=== PATIENT | female | born 1945 | race African-American/Black ===

== ENCOUNTER 2019-06-07 14:52 | Inpatient (IN) | payer MEDICARE, MEDICAID ==
[2019-06-08 01:33] VITALS: BP 140/70
[2019-06-08] MEDS ORDERED: Magnesium Hydroxide (MOM) 30 mL UDC PO PRN (02:30)
[2019-06-08] MEDS: Escitalopram Oxalate 5 mg Tab PO SCH (09:19)
--- NOTE | 2019-06-08 17:46 | History & Physical ---
ADMIT DATE: 06/08/2019 HISTORY OF PRESENT ILLNESS: The patient is a 73-year-old female with a long history of hypertension, degenerative joint disease, and dementia, admitted to [facility] under Dr. Bowers's service. The patient is a poor historian. No pain, no shortness of breath, no nausea, no vomiting, no fever, no chills. PAST MEDICAL HISTORY: Significant for hypertension, degenerative joint disease, dementia, and psychosis. PAST SURGICAL HISTORY: No recent surgery. ALLERGIES: ASPIRIN. SOCIAL HISTORY: No smoking, no alcohol, no drug. FAMILY HISTORY: Noncontributory. MEDICATIONS: Follow admission reconciliation. REVIEW OF SYSTEMS: RENAL SYSTEM: No history of chronic renal disorder. CARDIOVASCULAR SYSTEM: No coronary artery disease. ENDOCRINE SYSTEM: No diabetes or thyroid problem. GASTROINTESTINAL SYSTEM: No upper or lower GI bleed. NEUROLOGICAL SYSTEM: No seizure disorder. MUSCULOSKELETAL SYSTEM: Degenerative joint disease. PHYSICAL EXAMINATION: GENERAL: She is awake, not coherent. VITAL SIGNS: Temperature 97.9, heart rate 78, blood pressure 166/77. HEENT: Normocephalic. Pupils reacting equal to light and accommodation. Sclerae clear. NECK: Supple. Negative for lymphadenopathy, JVD, or bruit. CHEST: Entry of air bilaterally normal. No rhonchi or wheezing. HEART: S1, S2 normal. No gallop rhythm. ABDOMEN: Soft, bowel sounds positive. EXTREMITIES: No edema. BACK: No vertebral tenderness. BREASTS, PELVIC, AND RECTAL: Done by primary care physician, no complaint. NEUROLOGIC: She is awake, alert, not fully coherent. No focal muscle deficits. ASSESSMENT: 1. Hypertension. 2. Degenerative joint disease. 3. Dementia. 4. Psychosis. PLAN: The patient admitted to the hospital under Dr. Bowers's service. Medical problem addressed during this hospitalization are dementia and psychosis. Medical problems addressed at discharge are hypertension and degenerative joint disease. The patient is medically stable for activity. Thank you, Dr. Bowers for asking me to see your patient. JOB# [id number]
[2019-06-08] MEDS: Atorvastatin Calcium 10 MG TAB PO SCH (21:33)
--- NOTE | 2019-06-09 05:48 | Psychiatric Evaluation ---
DATE OF SERVICE: 06/08/2019 ATTENDING PHYSICIAN: Dr. Samm Bowers. REASON FOR ADMISSION: Acute agitation and aggressive behavior. CHIEF COMPLAINT: "I don't care. "I am okay." HISTORY OF PRESENT ILLNESS: This is one of multiple psychiatric hospitalizations for this patient who has multiple medical problems such as hypertension, degenerative joint disease and admitted for her agitation. PAST PSYCHIATRIC HISTORY: The patient prior to the hospitalization is reported to be followed up by Dr. Bowers on an outpatient basis and has been on escitalopram 5 mg and olanzapine 5 mg twice a day. The patient with these medications has been doing okay, but lately has been getting easily agitated and getting out of control and hence the patient has been sent over here from the [facility]. PAST PSYCHIATRIC HISTORY: The patient was hospitalized on couple of occasions, last hospitalization was in 2016. The patient had been diagnosed to have Schizophrenia, chronic paranoid type. The patient is reported to be compliant with the medication. MEDICAL HISTORY: Physical examination is requested by Dr. Rose. SUBSTANCE ABUSE HISTORY: None. PHYSICAL OR SEXUAL ABUSE HISTORY: None. LEGAL PROBLEMS: None at this time. STRENGTH AND ASSETS: The patient is motivated. The patient is reported to have been getting easily agitated and hitting other residents and slamming the door, screaming and yelling at the staff members and having anger outbursts. The patient could not be contained at a lower level of care and ____ was sent over here for further stabilization. MENTAL STATUS EXAMINATION: The patient looks her stated age 73-year-old thin built, superficially cooperative. Eye contact is poor. Mood is noted to be irritable. Affect is constricted. Insight and judgment at this time are noted to be very much impaired. Impulse control is noted to be poor. Coping skills are noted to be very poor. The patient has paranoid delusions, but denies any command hallucinations. No side effects to the medications are noted. The patient is alert and oriented to time, place, person, and situation. Attention span and concentration are noted to be fair at this time. DIAGNOSTIC IMPRESSION: AXIS I: Schizophrenia, chronic paranoid type with acute exacerbation. AXIS II: None. AXIS III: As per Dr. Rose. IMMEDIATE TREATMENT PLAN: The patient is going to be observed on inpatient unit. The patient is going to be closely monitored. Once stabilized, the patient is going to be discharged to the [facility] for further followup. JOB# [id number]
[2019-06-09] MEDS: Escitalopram Oxalate 5 mg Tab PO SCH (08:43)
--- NOTE | 2019-06-09 19:28 | Internal Medicine Prog Note ---
Internal Medicine Subjective - Subjective Service Date: 06/09/19 Patient seen and examined:: with staff Patient is:: awake, verbal, arousable, in bed, talking, confused Per staff patient has:: no adverse event Internal Medicine Objective - Physical Exam Vitals and I&O: Vital Signs Temp 97.9 F 06/09/19 17:08 Pulse 74 06/09/19 17:08 Resp 19 06/09/19 17:08 BP 126/92 06/09/19 17:08 Pulse Ox 100 06/09/19 17:08 Intake & Output 06/09/19 06/09/19 06/10/19 06:59 18:59 06:59 Intake Total 240 Balance 240 Intake: Oral 240 Other: # Voids 2 # Bowel Movements 0 Active Medications: Current Medications Acetaminophen (Tylenol) 650 mg PO Q4HR PRN PRN Reason: Mild Pain (Scale 1-3) Stop: 08/07/19 02:29 Acetaminophen (Tylenol) 650 mg PO Q4H PRN PRN Reason: TEMP ABOVE 100 Stop: 08/07/19 09:15 Amlodipine Besylate (Norvasc) 5 mg PO DAILY [facility] Stop: 08/07/19 08:59 Last Admin: 06/09/19 08:42 Dose: Not Given Atorvastatin Calcium (Lipitor) 10 mg PO HS CHONG; Protocol Stop: 08/07/19 20:59 Last Admin: 06/08/19 21:33 Dose: Not Given Docusate Sodium (Colace) 100 mg PO BID [facility] Stop: 08/07/19 08:59 Last Admin: 06/09/19 16:32 Dose: Not Given Escitalopram Oxalate (Lexapro) 5 mg PO DAILY [facility]; Protocol Stop: 08/07/19 08:59 Last Admin: 06/09/19 08:43 Dose: Not Given Lorazepam (Ativan) 0.5 mg PO Q4HR PRN; Protocol PRN Reason: Anxiety Stop: 07/08/19 02:29 Magnesium Hydroxide (Milk Of Magnesia) 30 ml PO HS PRN PRN Reason: Constipation Memantine (Namenda) 5 mg PO DAILY [facility] Stop: 08/07/19 08:59 Last Admin: 06/09/19 08:43 Dose: Not Given Olanzapine (Zyprexa) 5 mg PO Q12HR CHONG; Protocol Stop: 08/07/19 08:59 Last Admin: 06/09/19 08:43 Dose: Not Given Zolpidem Tartrate (Ambien) 5 mg PO HS PRN PRN Reason: Insomnia Stop: 08/07/19 02:55 General: demented HEENT: NC/AT, PERRLA, EOMI, anicteric sclerae, throat clear Neck: Supple, No JVD, No thyromegaly, +2 carotid pulse wo bruit, No LAD Lungs: CTAB Abdomen: soft, non-tender, non-distended Extremities: clear Neurological: no change - Procedures Procedures: Procedures Procedure Code Date GROUP PSYCHOTHERAPY 82116 02/12/16 GROUP PSYCHOTHERAPY GZHZZZZ 02/12/16 OTHER GROUP THERAPY 94.44 01/18/15 RECREATIONAL THERAPY 93.81 06/04/10 VACCINATION NEC 99.55 01/21/14 Internal Medicine Assmt/Plan - Assessment Assessment: 1.HTN. 2DJD. 3.DEMENTIA. 4.PSYCHOSIS - Plan Plan: CONTINUE ON CURRENT MEDICATION AND DIET.
[2019-06-09] MEDS: Atorvastatin Calcium 10 MG TAB PO SCH (21:27)
--- NOTE | 2019-06-09 23:23 | Progress Notes ---
DATE: 06/09/2019 PSYCHIATRIC PROGRESS NOTE SUBJECTIVE: Staff was spoken to. The patient is interviewed. Mood is noted to be irritable. Affect is constricted. Insight and judgment are noted to be still impaired. Impulse control is noted to be limited. The patient is getting easily agitated and aggressive. The patient needs to be redirected. No side effects to the medications are noted. Coping skills are noted to be still poor. Sleep and appetite also noted to be very poor. ASSESSMENT: The patient is still psychotic. PLAN: To continue the patient with the supportive therapy, encouraged the patient to verbalize the concerns rather than to act out. JOB# [id number]
[2019-06-10] MEDS: Escitalopram Oxalate 5 mg Tab PO SCH (08:31)
[2019-06-10] MEDS ORDERED: Haloperidol Lactate 5 mg/mL 1mL Vial ONE (10:54)
[2019-06-10] MEDS ORDERED: Haloperidol Lactate 5 mg/mL 1mL Vial IM ONE (11:00)
--- NOTE | 2019-06-10 19:30 | Internal Medicine Prog Note ---
Internal Medicine Subjective - Subjective Service Date: 06/10/19 Patient seen and examined:: without staff (SHE IS DOING BETTER) Patient is:: awake, verbal, arousable, in bed, talking, confused Per staff patient has:: no adverse event Internal Medicine Objective - Physical Exam Vitals and I&O: Vital Signs Temp 97.6 F 06/10/19 06:55 Pulse 71 06/10/19 08:32 Resp 20 06/10/19 06:55 BP 132/65 06/10/19 08:32 Pulse Ox 100 06/10/19 06:55 Intake & Output 06/10/19 06/10/19 06/11/19 06:59 18:59 06:59 Intake Total 120 1150 Balance 120 1150 Intake: Oral 120 1150 Other: # Voids 1 # Bowel Movements 0 Active Medications: Current Medications Acetaminophen (Tylenol) 650 mg PO Q4HR PRN PRN Reason: Mild Pain (Scale 1-3) Stop: 08/07/19 02:29 Acetaminophen (Tylenol) 650 mg PO Q4H PRN PRN Reason: TEMP ABOVE 100 Stop: 08/07/19 09:15 Amlodipine Besylate (Norvasc) 5 mg PO DAILY [facility] Stop: 08/07/19 08:59 Last Admin: 06/10/19 08:32 Dose: Not Given Atorvastatin Calcium (Lipitor) 10 mg PO HS CHONG; Protocol Stop: 08/07/19 20:59 Last Admin: 06/09/19 21:27 Dose: Not Given Docusate Sodium (Colace) 100 mg PO BID [facility] Stop: 08/07/19 08:59 Last Admin: 06/10/19 17:34 Dose: Not Given Escitalopram Oxalate (Lexapro) 5 mg PO DAILY [facility]; Protocol Stop: 08/07/19 08:59 Last Admin: 06/10/19 08:31 Dose: Not Given Lorazepam (Ativan) 0.5 mg PO Q4HR PRN; Protocol PRN Reason: Anxiety Stop: 07/08/19 02:29 Magnesium Hydroxide (Milk Of Magnesia) 30 ml PO HS PRN PRN Reason: Constipation Memantine (Namenda) 5 mg PO DAILY [facility] Stop: 08/07/19 08:59 Last Admin: 06/10/19 08:31 Dose: Not Given Olanzapine (Zyprexa) 5 mg PO Q12HR CHONG; Protocol Stop: 08/07/19 08:59 Last Admin: 06/10/19 08:31 Dose: Not Given Zolpidem Tartrate (Ambien) 5 mg PO HS PRN PRN Reason: Insomnia Stop: 08/07/19 02:55 General: demented HEENT: NC/AT, PERRLA, EOMI, anicteric sclerae, throat clear Neck: Supple, No JVD, No thyromegaly, +2 carotid pulse wo bruit, No LAD Lungs: CTAB Abdomen: soft, non-tender, non-distended Extremities: clear Neurological: no change - Procedures Procedures: Procedures Procedure Code Date GROUP PSYCHOTHERAPY 45438 02/12/16 GROUP PSYCHOTHERAPY GZHZZZZ 02/12/16 OTHER GROUP THERAPY 94.44 01/18/15 RECREATIONAL THERAPY 93.81 06/04/10 VACCINATION NEC 99.55 01/21/14 Internal Medicine Assmt/Plan - Assessment Assessment: 1.HTN. 2.DJD. 3.DEMENTIA. 4.PSYCHOSIS - Plan Plan: CONTINUE ON CURRENT MEDICATION AND DIET.
[2019-06-10] MEDS: Atorvastatin Calcium 10 MG TAB PO SCH (21:20)
--- NOTE | 2019-06-11 03:06 | Progress Notes ---
DATE: 06/10/2019 PSYCHIATRIC PROGRESS NOTE SUBJECTIVE: Staff was spoken to. The patient is interviewed. Mood is noted to be anxious. The patient's coping skills are noted to be poor. The patient is reported to have taken a pair of socks and has been trying to strangle herself and the patient has to be redirected. The patient's coping skills are noted to be very poor at this time. The patient has to be given a low dose of Haldol and Benadryl to calm her down. The patient at this time is not able to contract for safety. PLAN: To continue the patient with the supportive therapy, encouraged the patient to verbalize the concerns rather than to act out. [facility]# [id number]
[2019-06-11] MEDS: Escitalopram Oxalate 5 mg Tab PO SCH (09:18)
--- NOTE | 2019-06-11 18:58 | Internal Medicine Prog Note ---
Internal Medicine Subjective - Subjective Service Date: 06/11/19 Patient seen and examined:: without staff (SHE IS CONFUSED) Patient is:: awake, verbal, arousable, in bed, talking, confused Per staff patient has:: no adverse event Internal Medicine Objective - Physical Exam Vitals and I&O: Vital Signs Temp 97.5 F 06/11/19 16:15 Pulse 64 06/11/19 16:15 Resp 18 06/11/19 16:15 BP 115/58 06/11/19 16:15 Pulse Ox 99 06/11/19 16:15 Intake & Output 06/10/19 06/11/19 06/11/19 18:59 06:59 18:59 Intake Total 1150 120 Balance 1150 120 Intake: Oral 1150 120 Other: # Voids 3 Active Medications: Current Medications Acetaminophen (Tylenol) 650 mg PO Q4HR PRN PRN Reason: Mild Pain (Scale 1-3) Stop: 08/07/19 02:29 Acetaminophen (Tylenol) 650 mg PO Q4H PRN PRN Reason: TEMP ABOVE 100 Stop: 08/07/19 09:15 Amlodipine Besylate (Norvasc) 5 mg PO DAILY [facility] Stop: 08/07/19 08:59 Last Admin: 06/11/19 09:18 Dose: 5 mg Atorvastatin Calcium (Lipitor) 10 mg PO HS [facility]; Protocol Stop: 08/07/19 20:59 Last Admin: 06/10/19 21:20 Dose: Not Given Docusate Sodium (Colace) 100 mg PO BID [facility] Stop: 08/07/19 08:59 Last Admin: 06/11/19 16:58 Dose: 100 mg Escitalopram Oxalate (Lexapro) 5 mg PO DAILY [facility]; Protocol Stop: 08/07/19 08:59 Last Admin: 06/11/19 09:18 Dose: 5 mg Lorazepam (Ativan) 0.5 mg PO Q4HR PRN; Protocol PRN Reason: Anxiety Stop: 07/08/19 02:29 Magnesium Hydroxide (Milk Of Magnesia) 30 ml PO HS PRN PRN Reason: Constipation Memantine (Namenda) 5 mg PO DAILY [facility] Stop: 08/07/19 08:59 Last Admin: 06/11/19 09:19 Dose: 5 mg Olanzapine (Zyprexa) 5 mg PO Q12HR [facility]; Protocol Stop: 08/07/19 08:59 Last Admin: 06/11/19 09:19 Dose: 5 mg Zolpidem Tartrate (Ambien) 5 mg PO HS PRN PRN Reason: Insomnia Stop: 08/07/19 02:55 General: demented HEENT: NC/AT, PERRLA, EOMI, anicteric sclerae, throat clear Neck: Supple, No JVD, No thyromegaly, +2 carotid pulse wo bruit, No LAD Lungs: CTAB Abdomen: soft, non-tender, non-distended Extremities: clear Neurological: no change - Procedures Procedures: Procedures Procedure Code Date GROUP PSYCHOTHERAPY 46087 02/12/16 GROUP PSYCHOTHERAPY GZHZZZZ 02/12/16 OTHER GROUP THERAPY 94.44 01/18/15 RECREATIONAL THERAPY 93.81 06/04/10 VACCINATION NEC 99.55 01/21/14 Internal Medicine Assmt/Plan - Assessment Assessment: 1.HTN. 2.DJD. 3.DEMENTIA. 4.PSYCHOSIS - Plan Plan: CONTINUE ON CURRENT MEDICATION AND DIET. Nutritional Asmnt/Malnutr-PDOC - Dietary Evaluation Malnutrition Findings (Please click <Entered> for more info): Nutritional Asmnt/Malnutrition Start: 06/11/19 12: 54 Text: Status: Complete Freq: Protocol: Document 06/11/19 12:54 GASPER (Rec: 06/11/19 12:57 [email or web address]) Nutritional Asmnt/Malnutrition Patient General Information Nutritional Screening Moderate Risk Diagnosis Psychosis Pertinent Medical Hx/Surgical Hx HTN, DJD, Dementia Subjective Information Pt is a 73-year-old female admitted on 06/08 d/t acute agitation and aggressive behavior. Pt is eating 100% of meals since admit date Per Meal/Nutrition Activity Record . Dietary is currently providing an estimated 2100 kcals and 95 gm Pro to meet 100+% kcal and 100+% Pro needs . In morning flash meeting, nurse stated pt takes meds with Apple Juice. Visited pt today at lunchtime, opt was eating. I introduced myself to the pt and she stated she was not Samantha, she seemed confused. [employer] stated the pt prefers eating standing up and eats slow, but well. Anthropometrics HT: 56 WT: 169 LB (34.92 kg) ABW: 139 LB (63.52 kg) BMI: 27.28 (Overweight) GI/ Skin Integrity GI: WNL, Soft, Flat, Non- tender BM: Not Noted I/O: 1270/Not Noted Skin: WNL, Intact [place]: 17 Diet Order: Cardiac, NCS, 2g Na Estimated Energy Needs: ( Geriatric, ABW) 5823-6649 kcals (25-30 kcals/ kg) 64-76g Pro (1.0-1.2 g/kg) 5794-9573 ml (25-30 ml/kg) Current Diet Order/ Nutrition Support Cardiac, NCS, 2g Na Pertinent Medications Lipitor, Colace, MOM (PRN) Pertinent Labs No Labs to Report Nutritional Hx/Data Height 1.68 m Height (Calculated Centimeters) 167.6 Current Weight (lbs) 76.657 kg Weight (Calculated Kilograms) 76.7 Weight (Calculated Grams) 96421.1 [place] Body Weight 130 LB (59 kg) % [place] Body Weight 130 Body Mass Index (BMI) 27.2 Weight Status Overweight GI Symptoms GI Symptoms None Last BM Not Noted Skin Integrity/Comment: Skin: WNL, Intact [place]: 17 Estimated Nutritional Goals BEE in Kcals: Adj wt of IBW Calories/Kcals/Kg 25-30 Kcals Calculated 5901-2749 Protein: Adj wt of IBW Protein g/k.0-1.2 Protein Calculated 64-76 Fluid: ml 6168-9772 ml (25-30 ml/kg) Nutritional Problem 1. Problem Problem No nutrition diagnosis at this time. Etiology N/A Signs/Symptoms: N/A Intervention/Recommendation Comments Continue with Cardiac, NCS, 2g Na diet as ordered. Expected Outcomes/Goals Expected Outcomes/Goals 1. PO intake to continue to meet >75% of nutritional needs . 2. Monitor PO intake, wt, nutrition related labs, and skin integrity. 3. F/U as low risk in 7-10 days, 06/18-06/21
[2019-06-11] MEDS: Atorvastatin Calcium 10 MG TAB PO SCH (20:51)
--- NOTE | 2019-06-11 22:42 | Progress Notes ---
DATE: 06/11/2019 Staff was spoken to. The patient is interviewed. Mood is noted to be irritable. Affect is constricted. Insight and judgment at this time are noted to be still impaired. Impulse control is noted to be limited. Coping skills are noted to be limited. The patient has been having difficult time to cope with the stress. No side effects to the medications are noted. The patient has been getting aggressive at this time and the patient has been trying to make a with the socks and the patient has been closely monitored for this aggressive behavior. The patient is going to be closely monitored and if he continues to be this aggressive. The patient is going to be placed on the Depakene or Depakote and the patient is going to be continued with Zyprexa and followed up. JOB# [id number]
--- NOTE | 2019-06-12 21:12 | Internal Medicine Prog Note ---
Internal Medicine Subjective - Subjective Service Date: 06/12/19 Patient seen and examined:: without staff (SHE IS DOING WELL) Patient is:: awake, verbal, arousable, in bed, talking, confused Per staff patient has:: no adverse event Internal Medicine Objective - Physical Exam Vitals and I&O: Vital Signs Temp 98.2 F 06/12/19 20:11 Pulse 100 06/12/19 20:11 Resp 20 06/12/19 20:11 BP 139/76 06/12/19 20:11 Pulse Ox 97 06/12/19 20:11 Intake & Output 06/12/19 06/12/19 06/13/19 06:59 18:59 06:59 Intake Total 300 1200 240 Balance 300 1200 240 Intake: Oral 300 1200 240 Other: # Voids 3 4 1 # Bowel Movements 0 0 Active Medications: Current Medications Acetaminophen (Tylenol) 650 mg PO Q4HR PRN PRN Reason: Mild Pain (Scale 1-3) Stop: 08/07/19 02:29 Acetaminophen (Tylenol) 650 mg PO Q4H PRN PRN Reason: TEMP ABOVE 100 Stop: 08/07/19 09:15 Amlodipine Besylate (Norvasc) 5 mg PO DAILY [facility] Stop: 08/07/19 08:59 Last Admin: 06/12/19 09:38 Dose: Not Given Atorvastatin Calcium (Lipitor) 10 mg PO HS [facility]ONG; Protocol Stop: 08/07/19 20:59 Last Admin: 06/11/19 20:51 Dose: 10 mg Docusate Sodium (Colace) 100 mg PO BID [facility] Stop: 08/07/19 08:59 Last Admin: 06/12/19 16:15 Dose: Not Given Lorazepam (Ativan) 0.5 mg PO Q4HR PRN; Protocol PRN Reason: Anxiety Stop: 07/08/19 02:29 Magnesium Hydroxide (Milk Of Magnesia) 30 ml PO HS PRN PRN Reason: Constipation Memantine (Namenda) 5 mg PO DAILY [facility] Stop: 08/07/19 08:59 Last Admin: 06/12/19 09:37 Dose: Not Given Olanzapine (Zyprexa) 5 mg PO Q12HR [facility]; Protocol Stop: 08/07/19 08:59 Last Admin: 06/12/19 09:37 Dose: 5 mg Zolpidem Tartrate (Ambien) 5 mg PO HS PRN PRN Reason: Insomnia Stop: 08/07/19 02:55 General: demented HEENT: NC/AT, PERRLA, EOMI, anicteric sclerae, throat clear Neck: Supple, No JVD, No thyromegaly, +2 carotid pulse wo bruit, No LAD Lungs: CTAB Abdomen: soft, non-tender, non-distended Extremities: clear Neurological: no change - Procedures Procedures: Procedures Procedure Code Date GROUP PSYCHOTHERAPY 76488 02/12/16 GROUP PSYCHOTHERAPY GZHZZZZ 02/12/16 OTHER GROUP THERAPY 94.44 01/18/15 RECREATIONAL THERAPY 93.81 06/04/10 VACCINATION NEC 99.55 01/21/14 Internal Medicine Assmt/Plan - Assessment Assessment: 1.HTN. 2.DJD. 3.DEMENTIA. 4.PSYCHOSIS - Plan Plan: CONTINUE ON CURRENT MEDICATION AND DIET. Nutritional Asmnt/Malnutr-PDOC - Dietary Evaluation Malnutrition Findings (Please click <Entered> for more info): Nutritional Asmnt/Malnutrition Start: 06/11/19 12: 54 Text: Status: Complete Freq: Protocol: Document 06/11/19 12:54 GASPER (Rec: 06/11/19 12:57 [email or web address]) Nutritional Asmnt/Malnutrition Patient General Information Nutritional Screening Moderate Risk Diagnosis Psychosis Pertinent Medical Hx/Surgical Hx HTN, DJD, Dementia Subjective Information Pt is a 73-year-old female admitted on 06/08 d/t acute agitation and aggressive behavior. Pt is eating 100% of meals since admit date Per Meal/Nutrition Activity Record . Dietary is currently providing an estimated 2100 kcals and 95 gm Pro to meet 100+% kcal and 100+% Pro needs . In morning flash meeting, nurse stated pt takes meds with Apple Juice. Visited pt today at lunchtime, opt was eating. I introduced myself to the pt and she stated she was not Samantha, she seemed confused. [employer] stated the pt prefers eating standing up and eats slow, but well. Anthropometrics HT: 56 WT: 169 LB (34.92 kg) ABW: 139 LB (63.52 kg) BMI: 27.28 (Overweight) GI/ Skin Integrity GI: WNL, Soft, Flat, Non- tender BM: Not Noted I/O: 1270/Not Noted Skin: WNL, Intact [place]: 17 Diet Order: Cardiac, NCS, 2g Na Estimated Energy Needs: ( Geriatric, ABW) 9064-2366 kcals (25-30 kcals/ kg) 64-76g Pro (1.0-1.2 g/kg) 2316-4069 ml (25-30 ml/kg) Current Diet Order/ Nutrition Support Cardiac, NCS, 2g Na Pertinent Medications Lipitor, Colace, MOM (PRN) Pertinent Labs No Labs to Report Nutritional Hx/Data Height 1.68 m Height (Calculated Centimeters) 167.6 Current Weight (lbs) 76.657 kg Weight (Calculated Kilograms) 76.7 Weight (Calculated Grams) 52086.1 [place] Body Weight 130 LB (59 kg) % [place] Body Weight 130 Body Mass Index (BMI) 27.2 Weight Status Overweight GI Symptoms GI Symptoms None Last BM Not Noted Skin Integrity/Comment: Skin: WNL, Intact [place]: 17 Estimated Nutritional Goals BEE in Kcals: Adj wt of IBW Calories/Kcals/Kg 25-30 Kcals Calculated 7044-1416 Protein: Adj wt of IBW Protein g/k.0-1.2 Protein Calculated 64-76 Fluid: ml 5776-8482 ml (25-30 ml/kg) Nutritional Problem 1. Problem Problem No nutrition diagnosis at this time. Etiology N/A Signs/Symptoms: N/A Intervention/Recommendation Comments Continue with Cardiac, NCS, 2g Na diet as ordered. Expected Outcomes/Goals Expected Outcomes/Goals 1. PO intake to continue to meet >75% of nutritional needs . 2. Monitor PO intake, wt, nutrition related labs, and skin integrity. 3. F/U as low risk in 7-10 days, 06/18-06/21
[2019-06-12] MEDS: Atorvastatin Calcium 10 MG TAB PO SCH (21:44)
--- NOTE | 2019-06-12 22:06 | Progress Notes ---
DATE: 06/12/2019 PSYCHIATRIC PROGRESS NOTE SUBJECTIVE: Staff was spoken to. The patient is interviewed. Mood is noted to be irritable. Affect is constricted. Insight and judgment at this time are noted to be still impaired. Impulse control is noted to be limited. Coping skills are noted to be limited. The patient has no insight into her illness. The patient is still trying to test the limits and has been trying to hurt herself when she does not do that one she is trying to hurt the staff members. The patient is being closely monitored for medication cheeking. ASSESSMENT: The patient is still impulsive. PLAN: To continue the patient with the supportive therapy. I encouraged the patient to verbalize the concerns rather than to act out. JOB# [id number]
--- NOTE | 2019-06-13 20:47 | Internal Medicine Prog Note ---
Internal Medicine Subjective - Subjective Service Date: 06/13/19 Patient seen and examined:: without staff (SHE IS DOING WELL) Patient is:: awake, verbal, arousable, in bed, talking, confused Per staff patient has:: no adverse event Internal Medicine Objective - Physical Exam Vitals and I&O: Vital Signs Temp 97.6 F 06/13/19 14:00 Pulse 82 06/13/19 14:00 Resp 20 06/13/19 14:00 BP 120/56 06/13/19 14:00 Pulse Ox 97 06/13/19 14:00 Intake & Output 06/13/19 06/13/19 06/14/19 06:59 18:59 06:59 Intake Total 240 900 Balance 240 900 Intake: Oral 240 900 Other: # Voids 3 3 # Bowel Movements 0 1 Active Medications: Current Medications Acetaminophen (Tylenol) 650 mg PO Q4HR PRN PRN Reason: Mild Pain (Scale 1-3) Stop: 08/07/19 02:29 Acetaminophen (Tylenol) 650 mg PO Q4H PRN PRN Reason: TEMP ABOVE 100 Stop: 08/07/19 09:15 Amlodipine Besylate (Norvasc) 5 mg PO DAILY [facility] Stop: 08/07/19 08:59 Last Admin: 06/13/19 08:53 Dose: 5 mg Atorvastatin Calcium (Lipitor) 10 mg PO HS [facility]; Protocol Stop: 08/07/19 20:59 Last Admin: 06/12/19 21:44 Dose: 10 mg Divalproex Sodium (Depakote Dr) 250 mg PO BID [facility]; Protocol Stop: 08/13/19 08:59 Docusate Sodium (Colace) 100 mg PO BID [facility] Stop: 08/07/19 08:59 Last Admin: 06/13/19 17:38 Dose: 100 mg Lorazepam (Ativan) 0.5 mg PO Q4HR PRN; Protocol PRN Reason: Anxiety Stop: 07/08/19 02:29 Magnesium Hydroxide (Milk Of Magnesia) 30 ml PO HS PRN PRN Reason: Constipation Memantine (Namenda) 5 mg PO DAILY [facility] Stop: 08/07/19 08:59 Last Admin: 06/13/19 08:53 Dose: 5 mg Olanzapine (Zyprexa) 5 mg PO Q12HR [facility]; Protocol Stop: 08/07/19 08:59 Last Admin: 06/13/19 08:52 Dose: 5 mg Zolpidem Tartrate (Ambien) 5 mg PO HS PRN PRN Reason: Insomnia Stop: 08/07/19 02:55 General: demented HEENT: NC/AT, PERRLA, EOMI, anicteric sclerae, throat clear Neck: Supple, No JVD, No thyromegaly, +2 carotid pulse wo bruit, No LAD Lungs: CTAB Abdomen: soft, non-tender, non-distended Extremities: clear Neurological: no change - Procedures Procedures: Procedures Procedure Code Date GROUP PSYCHOTHERAPY 39389 02/12/16 GROUP PSYCHOTHERAPY GZHZZZZ 02/12/16 OTHER GROUP THERAPY 94.44 01/18/15 RECREATIONAL THERAPY 93.81 06/04/10 VACCINATION NEC 99.55 01/21/14 Internal Medicine Assmt/Plan - Assessment Assessment: 1.HTN. 2.DJD. 3.DEMENTIA. 4.PSYCHOSIS - Plan Plan: CONTINUE ON CURRENT MEDICATION AND DIET. Nutritional Asmnt/Malnutr-PDOC - Dietary Evaluation Malnutrition Findings (Please click <Entered> for more info): Nutritional Asmnt/Malnutrition Start: 06/11/19 12: 54 Text: Status: Complete Freq: Protocol: Document 06/11/19 12:54 GASPER (Rec: 06/11/19 12:57 [email or web address]) Nutritional Asmnt/Malnutrition Patient General Information Nutritional Screening Moderate Risk Diagnosis Psychosis Pertinent Medical Hx/Surgical Hx HTN, DJD, Dementia Subjective Information Pt is a 73-year-old female admitted on 06/08 d/t acute agitation and aggressive behavior. Pt is eating 100% of meals since admit date Per Meal/Nutrition Activity Record . Dietary is currently providing an estimated 2100 kcals and 95 gm Pro to meet 100+% kcal and 100+% Pro needs . In morning flash meeting, nurse stated pt takes meds with Apple Juice. Visited pt today at lunchtime, opt was eating. I introduced myself to the pt and she stated she was not Samantha, she seemed confused. ENTRY LEVEL ACCOUNTANT stated the pt prefers eating standing up and eats slow, but well. Anthropometrics HT: 56 WT: 169 LB (34.92 kg) ABW: 139 LB (63.52 kg) BMI: 27.28 (Overweight) GI/ Skin Integrity GI: WNL, Soft, Flat, Non- tender BM: Not Noted I/O: 1270/Not Noted Skin: WNL, Intact [place]: 17 Diet Order: Cardiac, NCS, 2g Na Estimated Energy Needs: ( Geriatric, ABW) 5335-0560 kcals (25-30 kcals/ kg) 64-76g Pro (1.0-1.2 g/kg) 5039-6863 ml (25-30 ml/kg) Current Diet Order/ Nutrition Support Cardiac, NCS, 2g Na Pertinent Medications Lipitor, Colace, MOM (PRN) Pertinent Labs No Labs to Report Nutritional Hx/Data Height 1.68 m Height (Calculated Centimeters) 167.6 Current Weight (lbs) 76.657 kg Weight (Calculated Kilograms) 76.7 Weight (Calculated Grams) 48767.1 [place] Body Weight 130 LB (59 kg) % [place] Body Weight 130 Body Mass Index (BMI) 27.2 Weight Status Overweight GI Symptoms GI Symptoms None Last BM Not Noted Skin Integrity/Comment: Skin: WNL, Intact [place]: 17 Estimated Nutritional Goals BEE in Kcals: Adj wt of IBW Calories/Kcals/Kg 25-30 Kcals Calculated 5635-1837 Protein: Adj wt of IBW Protein g/k.0-1.2 Protein Calculated 64-76 Fluid: ml 9728-6797 ml (25-30 ml/kg) Nutritional Problem 1. Problem Problem No nutrition diagnosis at this time. Etiology N/A Signs/Symptoms: N/A Intervention/Recommendation Comments Continue with Cardiac, NCS, 2g Na diet as ordered. Expected Outcomes/Goals Expected Outcomes/Goals 1. PO intake to continue to meet >75% of nutritional needs . 2. Monitor PO intake, wt, nutrition related labs, and skin integrity. 3. F/U as low risk in 7-10 days, 06/18-06/21
[2019-06-13] MEDS: Atorvastatin Calcium 10 MG TAB PO SCH (20:52)
--- NOTE | 2019-06-13 21:55 | Progress Notes ---
DATE: 06/13/2019 SUBJECTIVE: Staff was spoken to. The patient is interviewed. Mood is noted to be irritable. Affect is constricted. The patient is still impulsive. The patient has been testing the limits. The patient has no insight into her illness. The patient is stating that she does not need to be on the medications and she is medicated against her will. The patient has been testing the limits at this time. The patient has paranoid delusions. The patient also has been aggressive towards the staff members. ASSESSMENT: The patient is still grossly psychotic and impulsive. PLAN: To continue the patient with the supportive therapy, encouraged the patient to verbalize the concerns rather than to act out. JOB# [id number]
--- NOTE | 2019-06-14 19:13 | Internal Medicine Prog Note ---
Internal Medicine Subjective - Subjective Service Date: 06/14/19 Patient seen and examined:: without staff (SHE FEELS WELL) Patient is:: awake, verbal, arousable, in bed, talking, confused Per staff patient has:: no adverse event Internal Medicine Objective - Physical Exam Vitals and I&O: Vital Signs Temp 97.4 F 06/14/19 14:00 Pulse 94 06/14/19 14:00 Resp 20 06/14/19 14:00 BP 138/72 06/14/19 14:00 Pulse Ox 96 06/14/19 14:00 Intake & Output 06/14/19 06/14/19 06/15/19 06:59 18:59 06:59 Intake Total 120 1500 Balance 120 1500 Intake: Oral 120 1500 Other: # Voids 3 3 # Bowel Movements 0 Active Medications: Current Medications Acetaminophen (Tylenol) 650 mg PO Q4HR PRN PRN Reason: Mild Pain (Scale 1-3) Stop: 08/07/19 02:29 Acetaminophen (Tylenol) 650 mg PO Q4H PRN PRN Reason: TEMP ABOVE 100 Stop: 08/07/19 09:15 Amlodipine Besylate (Norvasc) 5 mg PO DAILY [facility] Stop: 08/07/19 08:59 Last Admin: 06/14/19 08:31 Dose: 5 mg Atorvastatin Calcium (Lipitor) 10 mg PO HS [facility]; Protocol Stop: 08/07/19 20:59 Last Admin: 06/13/19 20:52 Dose: 10 mg Divalproex Sodium (Depakote Dr) 250 mg PO BID [facility]; Protocol Stop: 08/13/19 08:59 Last Admin: 06/14/19 17:50 Dose: Not Given Docusate Sodium (Colace) 100 mg PO BID [facility] Stop: 08/07/19 08:59 Last Admin: 06/14/19 17:50 Dose: Not Given Lorazepam (Ativan) 0.5 mg PO Q4HR PRN; Protocol PRN Reason: Anxiety Stop: 07/08/19 02:29 Magnesium Hydroxide (Milk Of Magnesia) 30 ml PO HS PRN PRN Reason: Constipation Memantine (Namenda) 5 mg PO DAILY [facility] Stop: 08/07/19 08:59 Last Admin: 06/14/19 08:31 Dose: 5 mg Olanzapine (Zyprexa) 5 mg PO Q12HR [facility]; Protocol Stop: 08/07/19 08:59 Last Admin: 06/14/19 08:31 Dose: 5 mg Zolpidem Tartrate (Ambien) 5 mg PO HS PRN PRN Reason: Insomnia Stop: 08/07/19 02:55 General: demented HEENT: NC/AT, PERRLA, EOMI, anicteric sclerae, throat clear Neck: Supple, No JVD, No thyromegaly, +2 carotid pulse wo bruit, No LAD Lungs: CTAB Abdomen: soft, non-tender, non-distended Extremities: clear Neurological: no change - Procedures Procedures: Procedures Procedure Code Date GROUP PSYCHOTHERAPY 48092 02/12/16 GROUP PSYCHOTHERAPY GZHZZZZ 02/12/16 OTHER GROUP THERAPY 94.44 01/18/15 RECREATIONAL THERAPY 93.81 06/04/10 VACCINATION NEC 99.55 01/21/14 Internal Medicine Assmt/Plan - Assessment Assessment: 1.HTN. 2.DJD. 3.DEMENTIA. 4.PSYCHOSIS - Plan Plan: CONTINUE ON CURRENT MEDICATION AND DIET. Nutritional Asmnt/Malnutr-PDOC - Dietary Evaluation Malnutrition Findings (Please click <Entered> for more info): Nutritional Asmnt/Malnutrition Start: 06/11/19 12: 54 Text: Status: Complete Freq: Protocol: Document 06/11/19 12:54 GASPER (Rec: 06/11/19 12:57 [email or web address]) Nutritional Asmnt/Malnutrition Patient General Information Nutritional Screening Moderate Risk Diagnosis Psychosis Pertinent Medical Hx/Surgical Hx HTN, DJD, Dementia Subjective Information Pt is a 73-year-old female admitted on 06/08 d/t acute agitation and aggressive behavior. Pt is eating 100% of meals since admit date Per Meal/Nutrition Activity Record . Dietary is currently providing an estimated 2100 kcals and 95 gm Pro to meet 100+% kcal and 100+% Pro needs . In morning flash meeting, nurse stated pt takes meds with Apple Juice. Visited pt today at lunchtime, opt was eating. I introduced myself to the pt and she stated she was not Samantha, she seemed confused. [employer] OFFICER stated the pt prefers eating standing up and eats slow, but well. Anthropometrics HT: 56 WT: 169 LB (34.92 kg) ABW: 139 LB (63.52 kg) BMI: 27.28 (Overweight) GI/ Skin Integrity GI: WNL, Soft, Flat, Non- tender BM: Not Noted I/O: 1270/Not Noted Skin: WNL, Intact [place]: 17 Diet Order: Cardiac, NCS, 2g Na Estimated Energy Needs: ( Geriatric, ABW) 5831-2595 kcals (25-30 kcals/ kg) 64-76g Pro (1.0-1.2 g/kg) 6819-4504 ml (25-30 ml/kg) Current Diet Order/ Nutrition Support Cardiac, NCS, 2g Na Pertinent Medications Lipitor, Colace, MOM (PRN) Pertinent Labs No Labs to Report Nutritional Hx/Data Height 1.68 m Height (Calculated Centimeters) 167.6 Current Weight (lbs) 76.657 kg Weight (Calculated Kilograms) 76.7 Weight (Calculated Grams) 77261.1 [place] Body Weight 130 LB (59 kg) % [place] Body Weight 130 Body Mass Index (BMI) 27.2 Weight Status Overweight GI Symptoms GI Symptoms None Last BM Not Noted Skin Integrity/Comment: Skin: WNL, Intact [place]: 17 Estimated Nutritional Goals BEE in Kcals: Adj wt of IBW Calories/Kcals/Kg 25-30 Kcals Calculated 8912-1134 Protein: Adj wt of IBW Protein g/k.0-1.2 Protein Calculated 64-76 Fluid: ml 0138-4577 ml (25-30 ml/kg) Nutritional Problem 1. Problem Problem No nutrition diagnosis at this time. Etiology N/A Signs/Symptoms: N/A Intervention/Recommendation Comments Continue with Cardiac, NCS, 2g Na diet as ordered. Expected Outcomes/Goals Expected Outcomes/Goals 1. PO intake to continue to meet >75% of nutritional needs . 2. Monitor PO intake, wt, nutrition related labs, and skin integrity. 3. F/U as low risk in 7-10 days, 06/18-06/21
[2019-06-14] MEDS: Atorvastatin Calcium 10 MG TAB PO SCH (21:04)
--- NOTE | 2019-06-15 03:51 | Progress Notes ---
DATE: 06/14/2019 SUBJECTIVE: Staff was spoken to. The patient is interviewed. Mood is noted to be irritable. Affect is constricted. Insight and judgment at this time are noted to be still impaired. Impulse control is noted to be limited. Coping skills are noted to be limited. The patient is actively responding to internal stimuli. The patient has been spending hours to get into the bathroom and did not getting out of the bathroom and is actively talking to self, when confronted the patient is denying any command hallucinations. ASSESSMENT: The patient is still grossly psychotic. PLAN: To continue the patient with the supportive therapy and followup. JOB# [id number]
--- NOTE | 2019-06-15 15:41 | Internal Medicine Prog Note ---
Internal Medicine Subjective - Subjective Service Date: 06/15/19 Patient seen and examined:: without staff (SHE IS DOING WELL) Patient is:: awake, verbal, arousable, in bed, talking, confused Per staff patient has:: no adverse event Internal Medicine Objective - Physical Exam Vitals and I&O: Vital Signs Temp 97.5 F 06/15/19 14:00 Pulse 75 06/15/19 14:00 Resp 20 06/15/19 14:00 BP 134/69 06/15/19 14:00 Pulse Ox 98 06/15/19 14:00 Intake & Output 06/14/19 06/15/19 06/15/19 18:59 06:59 18:59 Intake Total 1500 120 Balance 1500 120 Intake: Oral 1500 120 Other: # Voids 3 3 # Bowel Movements 0 Active Medications: Current Medications Acetaminophen (Tylenol) 650 mg PO Q4HR PRN PRN Reason: Mild Pain (Scale 1-3) Stop: 08/07/19 02:29 Acetaminophen (Tylenol) 650 mg PO Q4H PRN PRN Reason: TEMP ABOVE 100 Stop: 08/07/19 09:15 Amlodipine Besylate (Norvasc) 5 mg PO DAILY [facility] Stop: 08/07/19 08:59 Last Admin: 06/15/19 09:00 Dose: 5 mg Atorvastatin Calcium (Lipitor) 10 mg PO HS [facility]; Protocol Stop: 08/07/19 20:59 Last Admin: 06/14/19 21:04 Dose: 10 mg Divalproex Sodium (Depakote Dr) 250 mg PO BID [facility]; Protocol Stop: 08/13/19 08:59 Last Admin: 06/15/19 09:00 Dose: 250 mg Docusate Sodium (Colace) 100 mg PO BID [facility] Stop: 08/07/19 08:59 Last Admin: 06/15/19 09:01 Dose: Not Given Lorazepam (Ativan) 0.5 mg PO Q4HR PRN; Protocol PRN Reason: Anxiety Stop: 07/08/19 02:29 Magnesium Hydroxide (Milk Of Magnesia) 30 ml PO HS PRN PRN Reason: Constipation Memantine (Namenda) 5 mg PO DAILY [facility] Stop: 08/07/19 08:59 Last Admin: 06/15/19 09:00 Dose: 5 mg Olanzapine (Zyprexa) 5 mg PO Q12HR [facility]; Protocol Stop: 08/07/19 08:59 Last Admin: 06/15/19 09:00 Dose: 5 mg Zolpidem Tartrate (Ambien) 5 mg PO HS PRN PRN Reason: Insomnia Stop: 08/07/19 02:55 Last Admin: 06/14/19 21:04 Dose: 5 mg General: demented HEENT: NC/AT, PERRLA, EOMI, anicteric sclerae, throat clear Neck: Supple, No JVD, No thyromegaly, +2 carotid pulse wo bruit, No LAD Lungs: CTAB Abdomen: soft, non-tender, non-distended Extremities: clear Neurological: no change - Procedures Procedures: Procedures Procedure Code Date GROUP PSYCHOTHERAPY 73012 02/12/16 GROUP PSYCHOTHERAPY GZHZZZZ 02/12/16 OTHER GROUP THERAPY 94.44 01/18/15 RECREATIONAL THERAPY 93.81 06/04/10 VACCINATION NEC 99.55 01/21/14 Internal Medicine Assmt/Plan - Assessment Assessment: 1.HTN. 2.DJD. 3.DEMENTIA. 4.PSYCHOSIS - Plan Plan: CONTINUE ON CURRENT MEDICATION AND DIET. Nutritional Asmnt/Malnutr-PDOC - Dietary Evaluation Malnutrition Findings (Please click <Entered> for more info): Nutritional Asmnt/Malnutrition Start: 06/11/19 12: 54 Text: Status: Complete Freq: Protocol: Document 06/11/19 12:54 GASPER (Rec: 06/11/19 12:57 GASPER [email or web address]) Nutritional Asmnt/Malnutrition Patient General Information Nutritional Screening Moderate Risk Diagnosis Psychosis Pertinent Medical Hx/Surgical Hx HTN, DJD, Dementia Subjective Information Pt is a 73-year-old female admitted on 06/08 d/t acute agitation and aggressive behavior. Pt is eating 100% of meals since admit date Per Meal/Nutrition Activity Record . Dietary is currently providing an estimated 2100 kcals and 95 gm Pro to meet 100+% kcal and 100+% Pro needs . In morning flash meeting, nurse stated pt takes meds with Apple Juice. Visited pt today at lunchtime, opt was eating. I introduced myself to the pt and she stated she was not Samantha, she seemed confused. SOURCING CONSULTANT stated the pt prefers eating standing up and eats slow, but well. Anthropometrics HT: 56 WT: 169 LB (34.92 kg) ABW: 139 LB (63.52 kg) BMI: 27.28 (Overweight) GI/ Skin Integrity GI: WNL, Soft, Flat, Non- tender BM: Not Noted I/O: 1270/Not Noted Skin: WNL, Intact [place]: 17 Diet Order: Cardiac, NCS, 2g Na Estimated Energy Needs: ( Geriatric, ABW) 1085-1914 kcals (25-30 kcals/ kg) 64-76g Pro (1.0-1.2 g/kg) 2056-0627 ml (25-30 ml/kg) Current Diet Order/ Nutrition Support Cardiac, NCS, 2g Na Pertinent Medications Lipitor, Colace, MOM (PRN) Pertinent Labs No Labs to Report Nutritional Hx/Data Height 1.68 m Height (Calculated Centimeters) 167.6 Current Weight (lbs) 76.657 kg Weight (Calculated Kilograms) 76.7 Weight (Calculated Grams) 84767.1 [place] Body Weight 130 LB (59 kg) % [place] Body Weight 130 Body Mass Index (BMI) 27.2 Weight Status Overweight GI Symptoms GI Symptoms None Last BM Not Noted Skin Integrity/Comment: Skin: WNL, Intact [place]: 17 Estimated Nutritional Goals BEE in Kcals: Adj wt of IBW Calories/Kcals/Kg 25-30 Kcals Calculated 8446-8625 Protein: Adj wt of IBW Protein g/k.0-1.2 Protein Calculated 64-76 Fluid: ml 2964-3288 ml (25-30 ml/kg) Nutritional Problem 1. Problem Problem No nutrition diagnosis at this time. Etiology N/A Signs/Symptoms: N/A Intervention/Recommendation Comments Continue with Cardiac, NCS, 2g Na diet as ordered. Expected Outcomes/Goals Expected Outcomes/Goals 1. PO intake to continue to meet >75% of nutritional needs . 2. Monitor PO intake, wt, nutrition related labs, and skin integrity. 3. F/U as low risk in 7-10 days, 06/18-06/21
[2019-06-15] MEDS: Atorvastatin Calcium 10 MG TAB PO SCH (21:42)
--- NOTE | 2019-06-16 02:15 | Progress Notes ---
DATE: 06/15/2019 SUBJECTIVE: Staff was spoken to. The patient is interviewed. Mood is noted to be irritable. Affect is constricted. Insight and judgment at this time are noted to be still impaired. Impulse control is noted to be limited. Coping skills are noted to be limited. The patient has been paranoid and is responding to internal stimuli. The patient is not making much sense. ASSESSMENT: The patient is still psychotic. PLAN: To continue the patient with the Zyprexa and followup. JOB# [id number]
--- NOTE | 2019-06-16 18:27 | Progress Notes ---
DATE: 06/16/2019 SUBJECTIVE: Staff was spoken to. The patient is interviewed. Mood is noted to be irritable. Affect is constricted. Coping skills at this time are noted to be very poor. The patient has been having difficult time to cope with the stress. The patient is still actively responding to internal stimuli. The patient is turning towards the wall and has been talking to herself. The patient is not giving much of any information, but the patient has been getting easily agitated when I am asking the questions. ASSESSMENT: The patient is still grossly psychotic and impulsive. PLAN: To continue the patient with the olanzapine, which she has been taking at 5 mg twice a day and Depakote 250 mg twice a day and follow the patient up. Please note that the patient is not ready to be discharged to a lower level of care yet. JOB# [id number]
--- NOTE | 2019-06-16 20:13 | General Progress Note ---
Subjective - Review of Systems Service Date: 06/16/19 Subjective: resting comfortably no distress Objective - Physical Exam Vitals and I&O: Vital Signs Temp 97.9 F 06/16/19 14:00 Pulse 87 06/16/19 14:00 Resp 20 06/16/19 14:00 BP 121/78 06/16/19 14:00 Pulse Ox 99 06/16/19 14:00 Intake & Output 06/16/19 06/16/19 06/17/19 06:59 18:59 06:59 Intake Total 480 1150 Balance 480 1150 Intake: Oral 480 1150 Other: # Voids 2 # Bowel Movements 1 Active Medications: Current Medications Acetaminophen (Tylenol) 650 mg PO Q4HR PRN PRN Reason: Mild Pain (Scale 1-3) Stop: 08/07/19 02:29 Acetaminophen (Tylenol) 650 mg PO Q4H PRN PRN Reason: TEMP ABOVE 100 Stop: 08/07/19 09:15 Amlodipine Besylate (Norvasc) 5 mg PO DAILY [facility] Stop: 08/07/19 08:59 Last Admin: 06/16/19 08:27 Dose: 5 mg Atorvastatin Calcium (Lipitor) 10 mg PO HS [facility]; Protocol Stop: 08/07/19 20:59 Last Admin: 06/15/19 21:42 Dose: 10 mg Divalproex Sodium (Depakote Dr) 250 mg PO BID [facility]; Protocol Stop: 08/13/19 08:59 Last Admin: 06/16/19 17:34 Dose: 250 mg Docusate Sodium (Colace) 100 mg PO BID [facility] Stop: 08/07/19 08:59 Last Admin: 06/16/19 17:34 Dose: 100 mg Lorazepam (Ativan) 0.5 mg PO Q4HR PRN; Protocol PRN Reason: Anxiety Stop: 07/08/19 02:29 Magnesium Hydroxide (Milk Of Magnesia) 30 ml PO HS PRN PRN Reason: Constipation Memantine (Namenda) 5 mg PO DAILY [facility] Stop: 08/07/19 08:59 Last Admin: 06/16/19 08:27 Dose: 5 mg Olanzapine (Zyprexa) 5 mg PO Q12HR [facility]; Protocol Stop: 08/07/19 08:59 Last Admin: 06/16/19 08:27 Dose: 5 mg Zolpidem Tartrate (Ambien) 5 mg PO HS PRN PRN Reason: Insomnia Stop: 08/07/19 02:55 Last Admin: 06/14/19 21:04 Dose: 5 mg General: No acute distress HEENT: PERRLA Neck: Supple, JVD Cardiovascular: Regular rate, Normal S1, Normal S2 Lungs: Clear to auscultation Abdomen: Bowel sounds, Soft - Procedures Procedures: Procedures Procedure Code Date GROUP PSYCHOTHERAPY 68881 02/12/16 GROUP PSYCHOTHERAPY GZHZZZZ 02/12/16 OTHER GROUP THERAPY 94.44 01/18/15 RECREATIONAL THERAPY 93.81 06/04/10 VACCINATION NEC 99.55 01/21/14 Assessment/Plan - Assessment Assessment: 1.HTN. 2.DJD. 3.DEMENTIA. 4.PSYCHOSIS - Plan Plan: continue current treatment Nutritional Asmnt/Malnutr-PDOC - Dietary Evaluation Malnutrition Findings (Please click <Entered> for more info): Nutritional Asmnt/Malnutrition Start: 06/11/19 12: 54 Text: Status: Complete Freq: Protocol: Document 06/11/19 12:54 GASPER (Rec: 06/11/19 12:57 GASPER [email or web address]) Nutritional Asmnt/Malnutrition Patient General Information Nutritional Screening Moderate Risk Diagnosis Psychosis Pertinent Medical Hx/Surgical Hx HTN, DJD, Dementia Subjective Information Pt is a 73-year-old female admitted on 06/08 d/t acute agitation and aggressive behavior. Pt is eating 100% of meals since admit date Per Meal/Nutrition Activity Record . Dietary is currently providing an estimated 2100 kcals and 95 gm Pro to meet 100+% kcal and 100+% Pro needs . In morning flash meeting, nurse stated pt takes meds with Apple Juice. Visited pt today at lunchtime, opt was eating. I introduced myself to the pt and she stated she was not Samantha, she seemed confused. TOOLROOM CHECKER stated the pt prefers eating standing up and eats slow, but well. Anthropometrics HT: 56 WT: 169 LB (34.92 kg) ABW: 139 LB (63.52 kg) BMI: 27.28 (Overweight) GI/ Skin Integrity GI: WNL, Soft, Flat, Non- tender BM: Not Noted I/O: 1270/Not Noted Skin: WNL, Intact [place]: 17 Diet Order: Cardiac, NCS, 2g Na Estimated Energy Needs: ( Geriatric, ABW) 8416-0748 kcals (25-30 kcals/ kg) 64-76g Pro (1.0-1.2 g/kg) 9858-9731 ml (25-30 ml/kg) Current Diet Order/ Nutrition Support Cardiac, NCS, 2g Na Pertinent Medications Lipitor, Colace, MOM (PRN) Pertinent Labs No Labs to Report Nutritional Hx/Data Height 1.68 m Height (Calculated Centimeters) 167.6 Current Weight (lbs) 76.657 kg Weight (Calculated Kilograms) 76.7 Weight (Calculated Grams) 74069.1 [place] Body Weight 130 LB (59 kg) % [place] Body Weight 130 Body Mass Index (BMI) 27.2 Weight Status Overweight GI Symptoms GI Symptoms None Last BM Not Noted Skin Integrity/Comment: Skin: WNL, Intact [place]: 17 Estimated Nutritional Goals BEE in Kcals: Adj wt of IBW Calories/Kcals/Kg 25-30 Kcals Calculated 0218-9943 Protein: Adj wt of IBW Protein g/k.0-1.2 Protein Calculated 64-76 Fluid: ml 3414-1879 ml (25-30 ml/kg) Nutritional Problem 1. Problem Problem No nutrition diagnosis at this time. Etiology N/A Signs/Symptoms: N/A Intervention/Recommendation Comments Continue with Cardiac, NCS, 2g Na diet as ordered. Expected Outcomes/Goals Expected Outcomes/Goals 1. PO intake to continue to meet >75% of nutritional needs . 2. Monitor PO intake, wt, nutrition related labs, and skin integrity. 3. F/U as low risk in 7-10 days, 06/18-06/21
[2019-06-16] MEDS: Atorvastatin Calcium 10 MG TAB PO SCH (20:43)
--- NOTE | 2019-06-17 11:44 | Progress Notes ---
DATE: 06/17/2019 SUBJECTIVE: Staff was spoken to. The patient is interviewed. Mood is noted to be irritable. Affect is constricted. The patient's insight and judgment are noted to be still impaired. Impulse control is noted to be limited. The patient needs to be redirected. The patient is actively responding to internal stimuli and is looking at the ceiling at this time and is not providing much of information. The patient has no insight into her illness. ASSESSMENT: The patient is still psychotic. PLAN: To continue the patient with the supportive therapy and followup. JOB# [id number]
--- NOTE | 2019-06-17 20:04 | General Progress Note ---
Subjective - Review of Systems Service Date: 06/17/19 Subjective: resting comfortably no distress Objective - Physical Exam Vitals and I&O: Vital Signs Temp 97.8 F 06/17/19 19:50 Pulse 90 06/17/19 19:50 Resp 20 06/17/19 19:50 BP 126/70 06/17/19 19:50 Pulse Ox 96 06/17/19 19:50 Intake & Output 06/17/19 06/17/19 06/18/19 06:59 18:59 06:59 Intake Total 240 1100 120 Balance 240 1100 120 Intake: Oral 240 1100 120 Other: # Voids 1 3 # Bowel Movements 1 0 Active Medications: Current Medications Acetaminophen (Tylenol) 650 mg PO Q4HR PRN PRN Reason: Mild Pain (Scale 1-3) Stop: 08/07/19 02:29 Acetaminophen (Tylenol) 650 mg PO Q4H PRN PRN Reason: TEMP ABOVE 100 Stop: 08/07/19 09:15 Amlodipine Besylate (Norvasc) 5 mg PO DAILY [facility] Stop: 08/07/19 08:59 Last Admin: 06/17/19 08:40 Dose: 5 mg Atorvastatin Calcium (Lipitor) 10 mg PO HS [facility]; Protocol Stop: 08/07/19 20:59 Last Admin: 06/16/19 20:43 Dose: 10 mg Divalproex Sodium (Depakote Dr) 250 mg PO BID [facility]; Protocol Stop: 08/13/19 08:59 Last Admin: 06/17/19 17:40 Dose: 250 mg Docusate Sodium (Colace) 100 mg PO BID [facility] Stop: 08/07/19 08:59 Last Admin: 06/17/19 17:40 Dose: 100 mg Lorazepam (Ativan) 0.5 mg PO Q4HR PRN; Protocol PRN Reason: Anxiety Stop: 07/08/19 02:29 Magnesium Hydroxide (Milk Of Magnesia) 30 ml PO HS PRN PRN Reason: Constipation Memantine (Namenda) 5 mg PO DAILY [facility] Stop: 08/07/19 08:59 Last Admin: 06/17/19 08:42 Dose: 5 mg Olanzapine (Zyprexa) 5 mg PO Q12HR [facility]; Protocol Stop: 08/07/19 08:59 Last Admin: 06/17/19 08:42 Dose: 5 mg Zolpidem Tartrate (Ambien) 5 mg PO HS PRN PRN Reason: Insomnia Stop: 08/07/19 02:55 Last Admin: 06/16/19 20:45 Dose: 5 mg General: No acute distress HEENT: PERRLA Neck: Supple, JVD Cardiovascular: Regular rate, Normal S1, Normal S2 Lungs: Clear to auscultation Abdomen: Bowel sounds, Soft - Procedures Procedures: Procedures Procedure Code Date GROUP PSYCHOTHERAPY 80577 02/12/16 GROUP PSYCHOTHERAPY GZHZZZZ 02/12/16 OTHER GROUP THERAPY 94.44 01/18/15 RECREATIONAL THERAPY 93.81 06/04/10 VACCINATION NEC 99.55 01/21/14 Assessment/Plan - Assessment Assessment: 1.HTN. 2.DJD. 3.DEMENTIA. 4.PSYCHOSIS - Plan Plan: continue current treatment Nutritional Asmnt/Malnutr-PDOC - Dietary Evaluation Malnutrition Findings (Please click <Entered> for more info): Nutritional Asmnt/Malnutrition Start: 06/11/19 12: 54 Text: Status: Complete Freq: Protocol: Document 06/11/19 12:54 GASPER (Rec: 06/11/19 12:57 [email or web address]) Nutritional Asmnt/Malnutrition Patient General Information Nutritional Screening Moderate Risk Diagnosis Psychosis Pertinent Medical Hx/Surgical Hx HTN, DJD, Dementia Subjective Information Pt is a 73-year-old female admitted on 06/08 d/t acute agitation and aggressive behavior. Pt is eating 100% of meals since admit date Per Meal/Nutrition Activity Record . Dietary is currently providing an estimated 2100 kcals and 95 gm Pro to meet 100+% kcal and 100+% Pro needs . In morning flash meeting, nurse stated pt takes meds with Apple Juice. Visited pt today at lunchtime, opt was eating. I introduced myself to the pt and she stated she was not Samantha, she seemed confused. W[employer]UR[employer] CONTROLS ENGINEER stated the pt prefers eating standing up and eats slow, but well. Anthropometrics HT: 56 WT: 169 LB (34.92 kg) ABW: 139 LB (63.52 kg) BMI: 27.28 (Overweight) GI/ Skin Integrity GI: WNL, Soft, Flat, Non- tender BM: Not Noted I/O: 1270/Not Noted Skin: WNL, Intact [place]: 17 Diet Order: Cardiac, NCS, 2g Na Estimated Energy Needs: ( Geriatric, ABW) 4907-2083 kcals (25-30 kcals/ kg) 64-76g Pro (1.0-1.2 g/kg) 2110-6042 ml (25-30 ml/kg) Current Diet Order/ Nutrition Support Cardiac, NCS, 2g Na Pertinent Medications Lipitor, Colace, MOM (PRN) Pertinent Labs No Labs to Report Nutritional Hx/Data Height 1.68 m Height (Calculated Centimeters) 167.6 Current Weight (lbs) 76.657 kg Weight (Calculated Kilograms) 76.7 Weight (Calculated Grams) 46099.1 [place] Body Weight 130 LB (59 kg) % [place] Body Weight 130 Body Mass Index (BMI) 27.2 Weight Status Overweight GI Symptoms GI Symptoms None Last BM Not Noted Skin Integrity/Comment: Skin: WNL, Intact Arden: 17 Estimated Nutritional Goals BEE in Kcals: Adj wt of IBW Calories/Kcals/Kg 25-30 Kcals Calculated 3993-4687 Protein: Adj wt of IBW Protein g/k.0-1.2 Protein Calculated 64-76 Fluid: ml 9096-2725 ml (25-30 ml/kg) Nutritional Problem 1. Problem Problem No nutrition diagnosis at this time. Etiology N/A Signs/Symptoms: N/A Intervention/Recommendation Comments Continue with Cardiac, NCS, 2g Na diet as ordered. Expected Outcomes/Goals Expected Outcomes/Goals 1. PO intake to continue to meet >75% of nutritional needs . 2. Monitor PO intake, wt, nutrition related labs, and skin integrity. 3. F/U as low risk in 7-10 days, 06/18-06/21
[2019-06-17] MEDS: Atorvastatin Calcium 10 MG TAB PO SCH (21:30)
--- NOTE | 2019-06-18 17:36 | Internal Medicine Prog Note ---
Internal Medicine Subjective - Subjective Service Date: 06/18/19 Patient seen and examined:: without staff (SHE IS DOING WELL) Patient is:: awake, verbal, arousable, in bed, talking, confused Per staff patient has:: no adverse event Internal Medicine Objective - Physical Exam Vitals and I&O: Vital Signs Temp 98.1 F 06/18/19 14:00 Pulse 80 06/18/19 14:00 Resp 18 06/18/19 14:00 BP 140/72 06/18/19 14:00 Pulse Ox 96 06/18/19 14:00 Intake & Output 06/17/19 06/18/19 06/18/19 18:59 06:59 18:59 Intake Total 1100 360 Balance 1100 360 Intake: Oral 1100 360 Other: # Voids 3 # Bowel Movements 1 0 Active Medications: Current Medications Acetaminophen (Tylenol) 650 mg PO Q4HR PRN PRN Reason: Mild Pain (Scale 1-3) Stop: 08/07/19 02:29 Acetaminophen (Tylenol) 650 mg PO Q4H PRN PRN Reason: TEMP ABOVE 100 Stop: 08/07/19 09:15 Amlodipine Besylate (Norvasc) 5 mg PO DAILY [facility] Stop: 08/07/19 08:59 Last Admin: 06/18/19 09:18 Dose: 5 mg Atorvastatin Calcium (Lipitor) 10 mg PO HS [facility]; Protocol Stop: 08/07/19 20:59 Last Admin: 06/17/19 21:30 Dose: 10 mg Divalproex Sodium (Depakote Dr) 250 mg PO BID [facility]; Protocol Stop: 08/13/19 08:59 Last Admin: 06/18/19 17:10 Dose: 250 mg Docusate Sodium (Colace) 100 mg PO BID [facility] [place] Stop: 08/07/19 08:59 Last Admin: 06/18/19 17:10 Dose: 100 mg Lorazepam (Ativan) 0.5 mg PO Q4HR PRN; Protocol PRN Reason: Anxiety Stop: 07/08/19 02:29 Magnesium Hydroxide (Milk Of Magnesia) 30 ml PO HS PRN PRN Reason: Constipation Memantine (Namenda) 5 mg PO DAILY [facility] [place] Stop: 08/07/19 08:59 Last Admin: 06/18/19 09:17 Dose: 5 mg Olanzapine (Zyprexa) 5 mg PO Q12HR [facility]; Protocol Stop: 08/07/19 08:59 Last Admin: 06/18/19 09:18 Dose: 5 mg Zolpidem Tartrate (Ambien) 5 mg PO HS PRN PRN Reason: Insomnia Stop: 08/07/19 02:55 Last Admin: 06/17/19 21:31 Dose: 5 mg General: demented HEENT: NC/AT, PERRLA, EOMI, anicteric sclerae, throat clear Neck: Supple, No JVD, No thyromegaly, +2 carotid pulse wo bruit, No LAD Lungs: CTAB Abdomen: soft, non-tender, non-distended Extremities: clear Neurological: no change - Procedures Procedures: Procedures Procedure Code Date GROUP PSYCHOTHERAPY 27080 02/12/16 GROUP PSYCHOTHERAPY GZHZZZZ 02/12/16 OTHER GROUP THERAPY 94.44 01/18/15 RECREATIONAL THERAPY 93.81 06/04/10 VACCINATION NEC 99.55 01/21/14 Internal Medicine Assmt/Plan - Assessment Assessment: 1.HTN. 2.DJD. 3.DEMENTIA. 4.PSYCHOSIS - Plan Plan: CONTINUE ON CURRENT MEDICATION AND DIET. Nutritional Asmnt/Malnutr-PDOC - Dietary Evaluation Malnutrition Findings (Please click <Entered> for more info): Nutritional Asmnt/Malnutrition Start: 06/11/19 12: 54 Text: Status: Complete Freq: Protocol: Document 06/11/19 12:54 GASPER (Rec: 06/11/19 12:57 [email or web address]) Nutritional Asmnt/Malnutrition Patient General Information Nutritional Screening Moderate Risk Diagnosis Psychosis Pertinent Medical Hx/Surgical Hx HTN, DJD, Dementia Subjective Information Pt is a 73-year-old female admitted on 06/08 d/t acute agitation and aggressive behavior. Pt is eating 100% of meals since admit date Per Meal/Nutrition Activity Record . Dietary is currently providing an estimated 2100 kcals and 95 gm Pro to meet 100+% kcal and 100+% Pro needs . In morning flash meeting, nurse stated pt takes meds with Apple Juice. Visited pt today at lunchtime, opt was eating. I introduced myself to the pt and she stated she was not Samantha, she seemed confused. JIRA ADMINISTRATOR stated the pt prefers eating standing up and eats slow, but well. Anthropometrics HT: 56 WT: 169 LB (34.92 kg) ABW: 139 LB (63.52 kg) BMI: 27.28 (Overweight) GI/ Skin Integrity GI: WNL, Soft, Flat, Non- tender BM: Not Noted I/O: 1270/Not Noted Skin: WNL, Intact [place]: 17 Diet Order: Cardiac, NCS, 2g Na Estimated Energy Needs: ( Geriatric, ABW) 1109-9175 kcals (25-30 kcals/ kg) 64-76g Pro (1.0-1.2 g/kg) 1663-2968 ml (25-30 ml/kg) Current Diet Order/ Nutrition Support Cardiac, NCS, 2g Na Pertinent Medications Lipitor, Colace, MOM (PRN) Pertinent Labs No Labs to Report Nutritional Hx/Data Height 1.68 m Height (Calculated Centimeters) 167.6 Current Weight (lbs) 76.657 kg Weight (Calculated Kilograms) 76.7 Weight (Calculated Grams) 32146.1 [place] Body Weight 130 LB (59 kg) % [place] Body Weight 130 Body Mass Index (BMI) 27.2 Weight Status Overweight GI Symptoms GI Symptoms None Last BM Not Noted Skin Integrity/Comment: Skin: WNL, Intact [place]: 17 Estimated Nutritional Goals BEE in Kcals: Adj wt of IBW Calories/Kcals/Kg 25-30 Kcals Calculated 0364-5910 Protein: Adj wt of IBW Protein g/k.0-1.2 Protein Calculated 64-76 Fluid: ml 6846-6134 ml (25-30 ml/kg) Nutritional Problem 1. Problem Problem No nutrition diagnosis at this time. Etiology N/A Signs/Symptoms: N/A Intervention/Recommendation Comments Continue with Cardiac, NCS, 2g Na diet as ordered. Expected Outcomes/Goals Expected Outcomes/Goals 1. PO intake to continue to meet >75% of nutritional needs . 2. Monitor PO intake, wt, nutrition related labs, and skin integrity. 3. F/U as low risk in 7-10 days, 06/18-06/21
[2019-06-18] MEDS: Atorvastatin Calcium 10 MG TAB PO SCH (21:40)
--- NOTE | 2019-06-19 00:35 | Progress Notes ---
DATE: 06/18/2019 PSYCHIATRIC PROGRESS NOTE SUBJECTIVE: Staff was spoken to. The patient is interviewed. Mood is noted to be irritable. Affect is constricted. Continues to be isolative and withdrawn. The patient is responding to internal stimuli. The patient is currently on Zyprexa that she has been getting at 12.5 mg. Zyprexa has been discontinued because she has not been getting any better with it. The patient has been placed on the Seroquel and the patient is getting 12.5 mg. I am planning to increase it to 25 mg because of the psychosis and follow the patient with the supportive therapy. JOB# [id number]
[2019-06-19] MEDS ORDERED: Haloperidol Lactate Oral sol. 2 mg/mL Udc PO ONE (09:15)
[2019-06-19] MEDS: Haloperidol Lactate Oral sol. 2 mg/mL Udc PO SCH (17:03)
--- NOTE | 2019-06-19 20:25 | Internal Medicine Prog Note ---
Internal Medicine Subjective - Subjective Service Date: 06/19/19 Patient seen and examined:: without staff (SHE IS DOING WELL) Patient is:: awake, verbal, arousable, in bed, talking, confused Per staff patient has:: no adverse event Internal Medicine Objective - Physical Exam Vitals and I&O: Vital Signs Temp 98.2 F 06/19/19 14:00 Pulse 84 06/19/19 14:00 Resp 18 06/19/19 14:00 BP 125/61 06/19/19 14:00 Pulse Ox 100 06/19/19 14:00 Intake & Output 06/19/19 06/19/19 06/20/19 06:59 18:59 06:59 Intake Total 420 800 Balance 420 800 Intake: Oral 420 800 Other: # Voids 3 4 # Bowel Movements 0 1 Active Medications: Current Medications Acetaminophen (Tylenol) 650 mg PO Q4HR PRN PRN Reason: Mild Pain (Scale 1-3) Stop: 08/07/19 02:29 Acetaminophen (Tylenol) 650 mg PO Q4H PRN PRN Reason: TEMP ABOVE 100 Stop: 08/07/19 09:15 Amlodipine Besylate (Norvasc) 5 mg PO DAILY [facility] Stop: 08/07/19 08:59 Last Admin: 06/19/19 09:16 Dose: 5 mg Atorvastatin Calcium (Lipitor) 10 mg PO HS [facility]; Protocol Stop: 08/07/19 20:59 Last Admin: 06/18/19 21:40 Dose: Not Given Divalproex Sodium (Depakote Dr) 250 mg PO BID [facility]; Protocol Stop: 08/13/19 08:59 Last Admin: 06/19/19 17:04 Dose: 250 mg Docusate Sodium (Colace) 100 mg PO BID [facility] Stop: 08/07/19 08:59 Last Admin: 06/19/19 17:04 Dose: 100 mg Haloperidol Lactate (Haldol) 2 mg PO BID [facility]; Protocol Stop: 08/18/19 16:59 Last Admin: 06/19/19 17:03 Dose: 2 mg Lorazepam (Ativan) 0.5 mg PO Q4HR PRN; Protocol PRN Reason: Anxiety Stop: 07/08/19 02:29 Magnesium Hydroxide (Milk Of Magnesia) 30 ml PO HS PRN PRN Reason: Constipation Memantine (Namenda) 5 mg PO DAILY [facility] Stop: 08/07/19 08:59 Last Admin: 06/19/19 09:17 Dose: 5 mg Olanzapine (Zyprexa) 5 mg PO Q12HR [facility]; Protocol Stop: 08/07/19 08:59 Last Admin: 06/19/19 09:15 Dose: 5 mg Zolpidem Tartrate (Ambien) 5 mg PO HS PRN PRN Reason: Insomnia Stop: 08/07/19 02:55 Last Admin: 06/17/19 21:31 Dose: 5 mg General: demented HEENT: NC/AT, PERRLA, EOMI, anicteric sclerae, throat clear Neck: Supple, No JVD, No thyromegaly, +2 carotid pulse wo bruit, No LAD Lungs: CTAB Abdomen: soft, non-tender, non-distended Extremities: clear Neurological: no change - Procedures Procedures: Procedures Procedure Code Date GROUP PSYCHOTHERAPY 38877 02/12/16 GROUP PSYCHOTHERAPY GZHZZZZ 02/12/16 OTHER GROUP THERAPY 94.44 01/18/15 RECREATIONAL THERAPY 93.81 06/04/10 VACCINATION NEC 99.55 01/21/14 Internal Medicine Assmt/Plan - Assessment Assessment: 1.HTN. 2.DJD. 3.DEMENTIA. 4.PSYCHOSIS - Plan Plan: CONTINUE ON CURRENT MEDICATION AND DIET. Nutritional Asmnt/Malnutr-PDOC - Dietary Evaluation Malnutrition Findings (Please click <Entered> for more info): Nutritional Asmnt/Malnutrition Start: 06/11/19 12: 54 Text: Status: Complete Freq: Protocol: Document 06/11/19 12:54 GASPER (Rec: 06/11/19 12:57 [email or web address]) Nutritional Asmnt/Malnutrition Patient General Information Nutritional Screening Moderate Risk Diagnosis Psychosis Pertinent Medical Hx/Surgical Hx HTN, DJD, Dementia Subjective Information Pt is a 73-year-old female admitted on 06/08 d/t acute agitation and aggressive behavior. Pt is eating 100% of meals since admit date Per Meal/Nutrition Activity Record . Dietary is currently providing an estimated 2100 kcals and 95 gm Pro to meet 100+% kcal and 100+% Pro needs . In morning flash meeting, nurse stated pt takes meds with Apple Juice. Visited pt today at lunchtime, opt was eating. I introduced myself to the pt and she stated she was not Samantha, she seemed confused. LOGGING EQUIPMENT OPERATOR stated the pt prefers eating standing up and eats slow, but well. Anthropometrics HT: 56 WT: 169 LB (34.92 kg) ABW: 139 LB (63.52 kg) BMI: 27.28 (Overweight) GI/ Skin Integrity GI: WNL, Soft, Flat, Non- tender BM: Not Noted I/O: 1270/Not Noted Skin: WNL, Intact Ar[place]: 17 Diet Order: Cardiac, NCS, 2g Na Estimated Energy Needs: ( Geriatric, ABW) 2203-9562 kcals (25-30 kcals/ kg) 64-76g Pro (1.0-1.2 g/kg) 0628-2743 ml (25-30 ml/kg) Current Diet Order/ Nutrition Support Cardiac, NCS, 2g Na Pertinent Medications Lipitor, Colace, MOM (PRN) Pertinent Labs No Labs to Report Nutritional Hx/Data Height 1.68 m Height (Calculated Centimeters) 167.6 Current Weight (lbs) 76.657 kg Weight (Calculated Kilograms) 76.7 Weight (Calculated Grams) 37174.1 [place] [facility] Body Weight 130 LB (59 kg) % [facility] Body Weight 130 Body Mass Index (BMI) 27.2 Weight Status Overweight GI Symptoms GI Symptoms None Last BM Not Noted Skin Integrity/Comment: Skin: WNL, Intact Arden: 17 Estimated Nutritional Goals BEE in Kcals: Adj wt of IBW Calories/Kcals/Kg 25-30 Kcals Calculated 4764-5212 Protein: Adj wt of IBW Protein g/k.0-1.2 Protein Calculated 64-76 Fluid: ml 0815-1459 ml (25-30 ml/kg) Nutritional Problem 1. Problem Problem No nutrition diagnosis at this time. Etiology N/A Signs/Symptoms: N/A Intervention/Recommendation Comments Continue with Cardiac, NCS, 2g Na diet as ordered. Expected Outcomes/Goals Expected Outcomes/Goals 1. PO intake to continue to meet >75% of nutritional needs . 2. Monitor PO intake, wt, nutrition related labs, and skin integrity. 3. F/U as low risk in 7-10 days, 06/18-06/21
--- NOTE | 2019-06-19 21:03 | Progress Notes ---
DATE: 06/19/2019 SUBJECTIVE: Staff was spoken to. The patient is interviewed. Mood is noted to be irritable. Affect is constricted. The patient is screaming and yelling, stating that she does not like the white, she does not like the brown, and she does not like the black people and she is her own doctor. The patient is very irritable and angry and is very paranoid. The patient has been tried with Seroquel in the beginning and Zyprexa: None of the medications are working and hence I have changed the medications to Haldol. The patient seems to be responding a little bit. Plan to continue this medication was gradually increased and then make it as a monotherapy. The patient's sleep is noted to be improving. Appetite is also noted to be fair. ASSESSMENT: The patient is still psychotic. PLAN: To continue the patient with the current medications and follow up. JOB# [id number]
[2019-06-19] MEDS: Atorvastatin Calcium 10 MG TAB PO SCH ×2 (21:06→21:14)
[2019-06-20] MEDS: Haloperidol Lactate Oral sol. 2 mg/mL Udc PO SCH ×2 (09:11→16:38)
--- NOTE | 2019-06-20 20:41 | Internal Medicine Prog Note ---
Internal Medicine Subjective - Subjective Service Date: 06/20/19 Patient seen and examined:: without staff (she is doing well) Patient is:: awake, verbal, arousable, in bed, talking, confused Per staff patient has:: no adverse event Internal Medicine Objective - Physical Exam Vitals and I&O: Vital Signs Temp 98.6 F 06/20/19 14:00 Pulse 82 06/20/19 14:00 Resp 18 06/20/19 14:00 BP 130/80 06/20/19 14:00 Pulse Ox 97 06/20/19 14:00 Intake & Output 06/20/19 06/20/19 06/21/19 06:59 18:59 06:59 Intake Total 240 1200 Balance 240 1200 Intake: Oral 240 1200 Other: # Voids 3 # Bowel Movements 0 1 Active Medications: Current Medications Acetaminophen (Tylenol) 650 mg PO Q4HR PRN PRN Reason: Mild Pain (Scale 1-3) Stop: 08/07/19 02:29 Acetaminophen (Tylenol) 650 mg PO Q4H PRN PRN Reason: TEMP ABOVE 100 Stop: 08/07/19 09:15 Amlodipine Besylate (Norvasc) 5 mg PO DAILY [facility] Stop: 08/07/19 08:59 Last Admin: 06/20/19 09:11 Dose: 5 mg Atorvastatin Calcium (Lipitor) 10 mg PO HS [facility]; Protocol Stop: 08/07/19 20:59 Last Admin: 06/19/19 21:14 Dose: 10 mg Divalproex Sodium (Depakote Dr) 250 mg PO BID [facility]; Protocol Stop: 08/13/19 08:59 Last Admin: 06/20/19 16:38 Dose: 250 mg Docusate Sodium (Colace) 100 mg PO BID [facility] Stop: 08/07/19 08:59 Last Admin: 06/20/19 16:38 Dose: 100 mg Haloperidol Lactate (Haldol) 2 mg PO BID [facility]; Protocol Stop: 08/18/19 16:59 Last Admin: 06/20/19 16:38 Dose: 2 mg Lorazepam (Ativan) 0.5 mg PO Q4HR PRN; Protocol PRN Reason: Anxiety Stop: 07/08/19 02:29 Magnesium Hydroxide (Milk Of Magnesia) 30 ml PO HS PRN PRN Reason: Constipation Memantine (Namenda) 5 mg PO DAILY [facility] Stop: 08/07/19 08:59 Last Admin: 06/20/19 09:11 Dose: 5 mg Olanzapine (Zyprexa) 5 mg PO Q12HR [facility]; Protocol Stop: 08/07/19 08:59 Last Admin: 06/20/19 09:11 Dose: 5 mg Zolpidem Tartrate (Ambien) 5 mg PO HS PRN PRN Reason: Insomnia Stop: 08/07/19 02:55 Last Admin: 06/17/19 21:31 Dose: 5 mg General: demented HEENT: NC/AT, PERRLA, EOMI, anicteric sclerae, throat clear Neck: Supple, No JVD, No thyromegaly, +2 carotid pulse wo bruit, No LAD Lungs: CTAB Abdomen: soft, non-tender, non-distended Extremities: clear Neurological: no change - Procedures Procedures: Procedures Procedure Code Date GROUP PSYCHOTHERAPY 71242 02/12/16 GROUP PSYCHOTHERAPY GZHZZZZ 02/12/16 OTHER GROUP THERAPY 94.44 01/18/15 RECREATIONAL THERAPY 93.81 06/04/10 VACCINATION NEC 99.55 01/21/14 Internal Medicine Assmt/Plan - Assessment Assessment: 1.HTN. 2.DJD. 3.DEMENTIA. 4.PSYCHOSIS - Plan Plan: CONTINUE ON CURRENT MEDICATION AND DIET. Nutritional Asmnt/Malnutr-PDOC - Dietary Evaluation Malnutrition Findings (Please click <Entered> for more info): Nutritional Asmnt/Malnutrition Start: 06/11/19 12: 54 Text: Status: Complete Freq: Protocol: Document 06/11/19 12:54 GASPER (Rec: 06/11/19 12:57 GASPER [email or web address]) Nutritional Asmnt/Malnutrition Patient General Information Nutritional Screening Moderate Risk Diagnosis Psychosis Pertinent Medical Hx/Surgical Hx HTN, DJD, Dementia Subjective Information Pt is a 73-year-old female admitted on 06/08 d/t acute agitation and aggressive behavior. Pt is eating 100% of meals since admit date Per Meal/Nutrition Activity Record . Dietary is currently providing an estimated 2100 kcals and 95 gm Pro to meet 100+% kcal and 100+% Pro needs . In morning flash meeting, nurse stated pt takes meds with Apple Juice. Visited pt today at lunchtime, opt was eating. I introduced myself to the pt and she stated she was not Samantha, she seemed confused. CLINICAL FIELD SPECIALIST stated the pt prefers eating standing up and eats slow, but well. Anthropometrics HT: 56 WT: 169 LB (34.92 kg) ABW: 139 LB (63.52 kg) BMI: 27.28 (Overweight) GI/ Skin Integrity GI: WNL, Soft, Flat, Non- tender BM: Not Noted I/O: 1270/Not Noted Skin: WNL, Intact [place]: 17 Diet Order: Cardiac, NCS, 2g Na Estimated Energy Needs: ( Geriatric, ABW) 3147-8428 kcals (25-30 kcals/ kg) 64-76g Pro (1.0-1.2 g/kg) 0939-5166 ml (25-30 ml/kg) Current Diet Order/ Nutrition Support Cardiac, NCS, 2g Na Pertinent Medications Lipitor, Colace, MOM (PRN) Pertinent Labs No Labs to Report Nutritional Hx/Data Height 1.68 m Height (Calculated Centimeters) 167.6 Current Weight (lbs) 76.657 kg Weight (Calculated Kilograms) 76.7 Weight (Calculated Grams) 39804.1 [place] Body Weight 130 LB (59 kg) % [place] Body Weight 130 Body Mass Index (BMI) 27.2 Weight Status Overweight GI Symptoms GI Symptoms None Last BM Not Noted Skin Integrity/Comment: Skin: WNL, Intact [place]: 17 Estimated Nutritional Goals BEE in Kcals: Adj wt of IBW Calories/Kcals/Kg 25-30 Kcals Calculated 4772-3888 Protein: Adj wt of IBW Protein g/k.0-1.2 Protein Calculated 64-76 Fluid: ml 4432-5362 ml (25-30 ml/kg) Nutritional Problem 1. Problem Problem No nutrition diagnosis at this time. Etiology N/A Signs/Symptoms: N/A Intervention/Recommendation Comments Continue with Cardiac, NCS, 2g Na diet as ordered. Expected Outcomes/Goals Expected Outcomes/Goals 1. PO intake to continue to meet >75% of nutritional needs . 2. Monitor PO intake, wt, nutrition related labs, and skin integrity. 3. F/U as low risk in 7-10 days, 06/18-06/21
[2019-06-20] MEDS: Atorvastatin Calcium 10 MG TAB PO SCH (20:44)
--- NOTE | 2019-06-21 06:04 | Progress Notes ---
DATE: 06/20/2019 PSYCHIATRIC PROGRESS NOTE SUBJECTIVE: Staff was spoken to. The patient is interviewed. Mood is noted to be dysphoric. Affect is constricted. She is stating that she is her own doctor and she does not want to see any other doctor. Coping skills at this time are noted to be extremely poor. Insight and judgment are also noted to be very much impaired. The patient is being currently maintained on antipsychotic medications. PLAN: To continue the patient with the current medications. I encouraged the patient to verbalize the concerns rather than to act out. JOB# [id number]
[2019-06-21] MEDS: Haloperidol Lactate Oral sol. 2 mg/mL Udc PO SCH ×2 (09:27→17:22)
--- NOTE | 2019-06-21 16:52 | Internal Medicine Prog Note ---
Internal Medicine Subjective - Subjective Service Date: 06/21/19 Patient seen and examined:: without staff (SHE FEELS WELL) Patient is:: awake, verbal, arousable, in bed, talking, confused Per staff patient has:: no adverse event Internal Medicine Objective - Physical Exam Vitals and I&O: Vital Signs Temp 97.1 F 06/21/19 14:00 Pulse 93 06/21/19 14:00 Resp 20 06/21/19 14:00 BP 130/70 06/21/19 14:00 Pulse Ox 96 06/21/19 14:00 Intake & Output 06/20/19 06/21/19 06/21/19 18:59 06:59 18:59 Intake Total 1200 240 Balance 1200 240 Intake: Oral 1200 240 Other: # Voids 3 # Bowel Movements 1 1 Active Medications: Current Medications Acetaminophen (Tylenol) 650 mg PO Q4HR PRN PRN Reason: Mild Pain (Scale 1-3) Stop: 08/07/19 02:29 Acetaminophen (Tylenol) 650 mg PO Q4H PRN PRN Reason: TEMP ABOVE 100 Stop: 08/07/19 09:15 Amlodipine Besylate (Norvasc) 5 mg PO DAILY [facility] Stop: 08/07/19 08:59 Last Admin: 06/21/19 09:27 Dose: Not Given Atorvastatin Calcium (Lipitor) 10 mg PO HS [facility]; Protocol Stop: 08/07/19 20:59 Last Admin: 06/20/19 20:44 Dose: 10 mg Divalproex Sodium (Depakote Dr) 250 mg PO BID [facility]; Protocol Stop: 08/13/19 08:59 Last Admin: 06/21/19 09:27 Dose: Not Given Docusate Sodium (Colace) 100 mg PO BID [facility] Stop: 08/07/19 08:59 Last Admin: 06/21/19 09:27 Dose: Not Given Haloperidol Decanoate (Haldol Dec) 25 mg IM QMONTH [facility]; Protocol Stop: 08/20/19 07:14 Last Admin: 06/21/19 09:28 Dose: Not Given Haloperidol Lactate (Haldol) 2 mg PO BID [facility]; Protocol Stop: 08/18/19 16:59 Last Admin: 06/21/19 09:27 Dose: Not Given Lorazepam (Ativan) 0.5 mg PO Q4HR PRN; Protocol PRN Reason: Anxiety Stop: 07/08/19 02:29 Magnesium Hydroxide (Milk Of Magnesia) 30 ml PO HS PRN PRN Reason: Constipation Memantine (Namenda) 5 mg PO DAILY [facility] Stop: 08/07/19 08:59 Last Admin: 06/21/19 09:27 Dose: Not Given Zolpidem Tartrate (Ambien) 5 mg PO HS PRN PRN Reason: Insomnia Stop: 08/07/19 02:55 Last Admin: 06/17/19 21:31 Dose: 5 mg General: demented HEENT: NC/AT, PERRLA, EOMI, anicteric sclerae, throat clear Neck: Supple, No JVD, No thyromegaly, +2 carotid pulse wo bruit, No LAD Lungs: CTAB Abdomen: soft, non-tender, non-distended Extremities: clear Neurological: no change - Procedures Procedures: Procedures Procedure Code Date GROUP PSYCHOTHERAPY 17810 02/12/16 GROUP PSYCHOTHERAPY GZHZZZZ 02/12/16 OTHER GROUP THERAPY 94.44 01/18/15 RECREATIONAL THERAPY 93.81 06/04/10 VACCINATION NEC 99.55 01/21/14 Internal Medicine Assmt/Plan - Assessment Assessment: 1.HTN. 2.DJD. 3.DEMENTIA. 4.PSYCHOSIS - Plan Plan: CONTINUE ON CURRENT MEDICATION AND DIET. Nutritional Asmnt/Malnutr-PDOC - Dietary Evaluation Malnutrition Findings (Please click <Entered> for more info): Nutritional Asmnt/Malnutrition Start: 06/11/19 12: 54 Text: Status: Complete Freq: Protocol: Document 06/11/19 12:54 GASPER (Rec: 06/11/19 12:57 [email or web address]) Nutritional Asmnt/Malnutrition Patient General Information Nutritional Screening Moderate Risk Diagnosis Psychosis Pertinent Medical Hx/Surgical Hx HTN, DJD, Dementia Subjective Information Pt is a 73-year-old female admitted on 06/08 d/t acute agitation and aggressive behavior. Pt is eating 100% of meals since admit date Per Meal/Nutrition Activity Record . Dietary is currently providing an estimated 2100 kcals and 95 gm Pro to meet 100+% kcal and 100+% Pro needs . In morning flash meeting, nurse stated pt takes meds with Apple Juice. Visited pt today at lunchtime, opt was eating. I introduced myself to the pt and she stated she was not Samantha, she seemed confused. ADDRESSOGRAPH OPERATOR stated the pt prefers eating standing up and eats slow, but well. Anthropometrics HT: 56 WT: 169 LB (34.92 kg) ABW: 139 LB (63.52 kg) BMI: 27.28 (Overweight) GI/ Skin Integrity GI: WNL, Soft, Flat, Non- tender BM: Not Noted I/O: 1270/Not Noted Skin: WNL, Intact [place]: 17 Diet Order: Cardiac, NCS, 2g Na Estimated Energy Needs: ( Geriatric, ABW) 5401-4933 kcals (25-30 kcals/ kg) 64-76g Pro (1.0-1.2 g/kg) 4327-5003 ml (25-30 ml/kg) Current Diet Order/ Nutrition Support Cardiac, NCS, 2g Na Pertinent Medications Lipitor, Colace, MOM (PRN) Pertinent Labs No Labs to Report Nutritional Hx/Data Height 1.68 m Height (Calculated Centimeters) 167.6 Current Weight (lbs) 76.657 kg Weight (Calculated Kilograms) 76.7 Weight (Calculated Grams) 51478.1 [place] Body Weight 130 LB (59 kg) % [place] Body Weight 130 Body Mass Index (BMI) 27.2 Weight Status Overweight GI Symptoms GI Symptoms None Last BM Not Noted Skin Integrity/Comment: Skin: WNL, Intact [place]: 17 Estimated Nutritional Goals BEE in Kcals: Adj wt of IBW Calories/Kcals/Kg 25-30 Kcals Calculated 0257-9494 Protein: Adj wt of IBW Protein g/k.0-1.2 Protein Calculated 64-76 Fluid: ml 0963-8916 ml (25-30 ml/kg) Nutritional Problem 1. Problem Problem No nutrition diagnosis at this time. Etiology N/A Signs/Symptoms: N/A Intervention/Recommendation Comments Continue with Cardiac, NCS, 2g Na diet as ordered. Expected Outcomes/Goals Expected Outcomes/Goals 1. PO intake to continue to meet >75% of nutritional needs . 2. Monitor PO intake, wt, nutrition related labs, and skin integrity. 3. F/U as low risk in 7-10 days, 06/18-06/21
[2019-06-21] MEDS: Atorvastatin Calcium 10 MG TAB PO SCH (21:25)
--- NOTE | 2019-06-22 05:07 | Progress Notes ---
DATE: 06/21/2019 PSYCHIATRIC PROGRESS NOTE SUBJECTIVE: Staff was spoken to. The patient is interviewed. Mood is noted to be irritable. Affect is constricted. Continues to be isolative and withdrawn. Insight and judgment are noted to be still impaired. Impulse control is noted to be limited. Coping skills are noted to be limited. The patient is still very paranoid. The patient is not able to contract for safety. No side effects to the medications are noted. ASSESSMENT: The patient is still psychotic. PLAN: To continue the patient with the supportive therapy and follow up and the patient has been placed on the Haldol and the olanzapine has been discontinued. JOB# [id number]
[2019-06-22] MEDS: Haloperidol Lactate Oral sol. 2 mg/mL Udc PO SCH ×2 (09:11→17:01)
--- NOTE | 2019-06-22 18:03 | Internal Medicine Prog Note ---
Internal Medicine Subjective - Subjective Service Date: 06/22/19 Patient seen and examined:: without staff (she feels well) Patient is:: awake, verbal, arousable, in bed, talking, confused Per staff patient has:: no adverse event Internal Medicine Objective - Physical Exam Vitals and I&O: Vital Signs Temp 97.8 F 06/21/19 20:00 Pulse 98 06/22/19 09:10 Resp 20 06/21/19 20:00 BP 145/85 06/22/19 09:10 Pulse Ox 96 06/21/19 14:00 Intake & Output 06/21/19 06/22/19 06/22/19 18:59 06:59 18:59 Intake Total 1200 340 Balance 1200 340 Intake: Oral 1200 340 Other: # Voids 3 # Bowel Movements 0 Active Medications: Current Medications Acetaminophen (Tylenol) 650 mg PO Q4HR PRN PRN Reason: Mild Pain (Scale 1-3) Stop: 08/07/19 02:29 Acetaminophen (Tylenol) 650 mg PO Q4H PRN PRN Reason: TEMP ABOVE 100 Stop: 08/07/19 09:15 Amlodipine Besylate (Norvasc) 5 mg PO DAILY [facility] Stop: 08/07/19 08:59 Last Admin: 06/22/19 09:10 Dose: 5 mg Atorvastatin Calcium (Lipitor) 10 mg PO HS [facility]; Protocol Stop: 08/07/19 20:59 Last Admin: 06/21/19 21:25 Dose: 10 mg Divalproex Sodium (Depakote Dr) 250 mg PO BID [facility]; Protocol Stop: 08/13/19 08:59 Last Admin: 06/22/19 17:53 Dose: Not Given Docusate Sodium (Colace) 100 mg PO BID [facility] Stop: 08/07/19 08:59 Last Admin: 06/22/19 17:01 Dose: 100 mg Haloperidol Decanoate (Haldol Dec) 25 mg IM QMONTH [facility]; Protocol Stop: 08/20/19 07:14 Last Admin: 06/21/19 09:28 Dose: Not Given Haloperidol Lactate (Haldol) 2 mg PO BID [facility]; Protocol Stop: 08/18/19 16:59 Last Admin: 06/22/19 17:01 Dose: 2 mg Lorazepam (Ativan) 0.5 mg PO Q4HR PRN; Protocol PRN Reason: Anxiety Stop: 07/08/19 02:29 Magnesium Hydroxide (Milk Of Magnesia) 30 ml PO HS PRN PRN Reason: Constipation Memantine (Namenda) 5 mg PO DAILY [facility] Stop: 08/07/19 08:59 Last Admin: 06/22/19 09:10 Dose: 5 mg Zolpidem Tartrate (Ambien) 5 mg PO HS PRN PRN Reason: Insomnia Stop: 08/07/19 02:55 Last Admin: 06/17/19 21:31 Dose: 5 mg General: demented HEENT: NC/AT, PERRLA, EOMI, anicteric sclerae, throat clear Neck: Supple, No JVD, No thyromegaly, +2 carotid pulse wo bruit, No LAD Lungs: CTAB Abdomen: soft, non-tender, non-distended Extremities: clear Neurological: no change - Procedures Procedures: Procedures Procedure Code Date GROUP PSYCHOTHERAPY 72819 02/12/16 GROUP PSYCHOTHERAPY GZHZZZZ 02/12/16 OTHER GROUP THERAPY 94.44 01/18/15 RECREATIONAL THERAPY 93.81 06/04/10 VACCINATION NEC 99.55 01/21/14 Internal Medicine Assmt/Plan - Assessment Assessment: 1.HTN. 2.DJD. 3.DEMENTIA. 4.PSYCHOSIS - Plan Plan: CONTINUE ON CURRENT MEDICATION AND DIET. Nutritional Asmnt/Malnutr-PDOC - Dietary Evaluation Malnutrition Findings (Please click <Entered> for more info): Nutritional Asmnt/Malnutrition Start: 06/11/19 12: 54 Text: Status: Complete Freq: Protocol: Document 06/11/19 12:54 GASPER (Rec: 06/11/19 12:57 [email or web address]) Nutritional Asmnt/Malnutrition Patient General Information Nutritional Screening Moderate Risk Diagnosis Psychosis Pertinent Medical Hx/Surgical Hx HTN, DJD, Dementia Subjective Information Pt is a 73-year-old female admitted on 06/08 d/t acute agitation and aggressive behavior. Pt is eating 100% of meals since admit date Per Meal/Nutrition Activity Record . Dietary is currently providing an estimated 2100 kcals and 95 gm Pro to meet 100+% kcal and 100+% Pro needs . In morning flash meeting, nurse stated pt takes meds with Apple Juice. Visited pt today at lunchtime, opt was eating. I introduced myself to the pt and she stated she was not Samantha, she seemed confused. CENTER HUMAN RESOURCES MANAGER stated the pt prefers eating standing up and eats slow, but well. Anthropometrics HT: 56 WT: 169 LB (34.92 kg) ABW: 139 LB (63.52 kg) BMI: 27.28 (Overweight) GI/ Skin Integrity GI: WNL, Soft, Flat, Non- tender BM: Not Noted I/O: 1270/Not Noted Skin: WNL, Intact [place]: 17 Diet Order: Cardiac, NCS, 2g Na Estimated Energy Needs: ( Geriatric, ABW) 2205-1927 kcals (25-30 kcals/ kg) 64-76g Pro (1.0-1.2 g/kg) 6276-7070 ml (25-30 ml/kg) Current Diet Order/ Nutrition Support Cardiac, NCS, 2g Na Pertinent Medications Lipitor, Colace, MOM (PRN) Pertinent Labs No Labs to Report Nutritional Hx/Data Height 1.68 m Height (Calculated Centimeters) 167.6 Current Weight (lbs) 76.657 kg Weight (Calculated Kilograms) 76.7 Weight (Calculated Grams) 49104.1 [place] Body Weight 130 LB (59 kg) % [place] Body Weight 130 Body Mass Index (BMI) 27.2 Weight Status Overweight GI Symptoms GI Symptoms None Last BM Not Noted Skin Integrity/Comment: Skin: WNL, Intact [place]: 17 Estimated Nutritional Goals BEE in Kcals: Adj wt of IBW Calories/Kcals/Kg 25-30 Kcals Calculated 7970-8138 Protein: Adj wt of IBW Protein g/k.0-1.2 Protein Calculated 64-76 Fluid: ml 8365-3753 ml (25-30 ml/kg) Nutritional Problem 1. Problem Problem No nutrition diagnosis at this time. Etiology N/A Signs/Symptoms: N/A Intervention/Recommendation Comments Continue with Cardiac, NCS, 2g Na diet as ordered. Expected Outcomes/Goals Expected Outcomes/Goals 1. PO intake to continue to meet >75% of nutritional needs . 2. Monitor PO intake, wt, nutrition related labs, and skin integrity. 3. F/U as low risk in 7-10 days, 06/18-06/21
[2019-06-22] MEDS: Atorvastatin Calcium 10 MG TAB PO SCH ×2 (20:38→20:47)
--- NOTE | 2019-06-23 01:22 | Progress Notes ---
DATE: 06/22/2019 PSYCHIATRIC PROGRESS NOTE SUBJECTIVE: Staff was spoken to. The patient is interviewed. Mood is noted to be anxious and depressed. Affect is constricted. The patient is irritable. The patient has paranoid delusions. The patient's coping skills are noted to be poor. Aggressive behavior seems to be coming under control. No side effects to the medications are noted. ASSESSMENT: The patient is still psychotic. PLAN: To continue the patient with the supportive therapy, encouraged the patient to verbalize the concerns rather than to act out. JOB# [id number]
[2019-06-23] MEDS: Haloperidol Lactate Oral sol. 2 mg/mL Udc PO SCH ×2 (09:41→17:28)
--- NOTE | 2019-06-23 12:43 | Internal Medicine Prog Note ---
Internal Medicine Subjective - Subjective Service Date: 06/23/19 Patient seen and examined:: without staff (SHE FEELS WELL) Patient is:: awake, verbal, arousable, in bed, talking, confused Per staff patient has:: no adverse event Internal Medicine Objective - Physical Exam Vitals and I&O: Vital Signs Temp 98 F 06/22/19 20:41 Pulse 90 06/23/19 09:42 Resp 20 06/22/19 20:41 BP 140/80 06/23/19 09:42 Pulse Ox 97 06/22/19 20:41 Intake & Output 06/22/19 06/23/19 06/23/19 18:59 06:59 18:59 Intake Total 1250 120 Balance 1250 120 Intake: Oral 1250 120 Other: # Voids 1 # Bowel Movements 1 Active Medications: Current Medications Acetaminophen (Tylenol) 650 mg PO Q4HR PRN PRN Reason: Mild Pain (Scale 1-3) Stop: 08/07/19 02:29 Acetaminophen (Tylenol) 650 mg PO Q4H PRN PRN Reason: TEMP ABOVE 100 Stop: 08/07/19 09:15 Amlodipine Besylate (Norvasc) 5 mg PO DAILY [facility] Stop: 08/07/19 08:59 Last Admin: 06/23/19 09:42 Dose: 5 mg Atorvastatin Calcium (Lipitor) 10 mg PO HS [facility]; Protocol Stop: 08/07/19 20:59 Last Admin: 06/22/19 20:47 Dose: Not Given Divalproex Sodium (Depakote Dr) 250 mg PO BID [facility]; Protocol Stop: 08/13/19 08:59 Last Admin: 06/23/19 09:42 Dose: Not Given Docusate Sodium (Colace) 100 mg PO BID [facility] Stop: 08/07/19 08:59 Last Admin: 06/23/19 09:41 Dose: 100 mg Haloperidol Decanoate (Haldol Dec) 25 mg IM QMONTH [facility]; Protocol Stop: 08/20/19 07:14 Last Admin: 06/21/19 09:28 Dose: Not Given Haloperidol Lactate (Haldol) 2 mg PO BID [facility]; Protocol Stop: 08/18/19 16:59 Last Admin: 06/23/19 09:41 Dose: 2 mg Lorazepam (Ativan) 0.5 mg PO Q4HR PRN; Protocol PRN Reason: Anxiety Stop: 07/08/19 02:29 Magnesium Hydroxide (Milk Of Magnesia) 30 ml PO HS PRN PRN Reason: Constipation Memantine (Namenda) 5 mg PO DAILY [facility] Stop: 08/07/19 08:59 Last Admin: 06/23/19 09:41 Dose: 5 mg Zolpidem Tartrate (Ambien) 5 mg PO HS PRN PRN Reason: Insomnia Stop: 08/07/19 02:55 Last Admin: 06/17/19 21:31 Dose: 5 mg General: demented HEENT: NC/AT, PERRLA, EOMI, anicteric sclerae, throat clear Neck: Supple, No JVD, No thyromegaly, +2 carotid pulse wo bruit, No LAD Lungs: CTAB Abdomen: soft, non-tender, non-distended Extremities: clear Neurological: no change - Procedures Procedures: Procedures Procedure Code Date GROUP PSYCHOTHERAPY 94927 02/12/16 GROUP PSYCHOTHERAPY GZHZZZZ 02/12/16 OTHER GROUP THERAPY 94.44 01/18/15 RECREATIONAL THERAPY 93.81 06/04/10 VACCINATION NEC 99.55 01/21/14 Internal Medicine Assmt/Plan - Assessment Assessment: 1.HTN. 2.DJD. 3.DEMENTIA. 4.PSYCHOSIS - Plan Plan: CONTINUE ON CURRENT MEDICATION AND DIET. Nutritional Asmnt/Malnutr-PDOC - Dietary Evaluation Malnutrition Findings (Please click <Entered> for more info): Nutritional Asmnt/Malnutrition Start: 06/11/19 12: 54 Text: Status: Complete Freq: Protocol: Document 06/11/19 12:54 GASPER (Rec: 06/11/19 12:57 [email or web address]) Nutritional Asmnt/Malnutrition Patient General Information Nutritional Screening Moderate Risk Diagnosis Psychosis Pertinent Medical Hx/Surgical Hx HTN, DJD, Dementia Subjective Information Pt is a 73-year-old female admitted on 06/08 d/t acute agitation and aggressive behavior. Pt is eating 100% of meals since admit date Per Meal/Nutrition Activity Record . Dietary is currently providing an estimated 2100 kcals and 95 gm Pro to meet 100+% kcal and 100+% Pro needs . In morning flash meeting, nurse stated pt takes meds with Apple Juice. Visited pt today at lunchtime, opt was eating. I introduced myself to the pt and she stated she was not Samantha, she seemed confused. ICD 9 CODER stated the pt prefers eating standing up and eats slow, but well. Anthropometrics HT: 56 WT: 169 LB (34.92 kg) ABW: 139 LB (63.52 kg) BMI: 27.28 (Overweight) GI/ Skin Integrity GI: WNL, Soft, Flat, Non- tender BM: Not Noted I/O: 1270/Not Noted Skin: WNL, Intact [place]: 17 Diet Order: Cardiac, NCS, 2g Na Estimated Energy Needs: ( Geriatric, ABW) 7394-3316 kcals (25-30 kcals/ kg) 64-76g Pro (1.0-1.2 g/kg) 9082-2220 ml (25-30 ml/kg) Current Diet Order/ Nutrition Support Cardiac, NCS, 2g Na Pertinent Medications Lipitor, Colace, MOM (PRN) Pertinent Labs No Labs to Report Nutritional Hx/Data Height 1.68 m Height (Calculated Centimeters) 167.6 Current Weight (lbs) 76.657 kg Weight (Calculated Kilograms) 76.7 Weight (Calculated Grams) 79656.1 [place] Body Weight 130 LB (59 kg) % [place] Body Weight 130 Body Mass Index (BMI) 27.2 Weight Status Overweight GI Symptoms GI Symptoms None Last BM Not Noted Skin Integrity/Comment: Skin: WNL, Intact [place]: 17 Estimated Nutritional Goals BEE in Kcals: Adj wt of IBW Calories/Kcals/Kg 25-30 Kcals Calculated 8269-1949 Protein: Adj wt of IBW Protein g/k.0-1.2 Protein Calculated 64-76 Fluid: ml 3107-4298 ml (25-30 ml/kg) Nutritional Problem 1. Problem Problem No nutrition diagnosis at this time. Etiology N/A Signs/Symptoms: N/A Intervention/Recommendation Comments Continue with Cardiac, NCS, 2g Na diet as ordered. Expected Outcomes/Goals Expected Outcomes/Goals 1. PO intake to continue to meet >75% of nutritional needs . 2. Monitor PO intake, wt, nutrition related labs, and skin integrity. 3. F/U as low risk in 7-10 days, 06/18-06/21
[2019-06-23] MEDS: Atorvastatin Calcium 10 MG TAB PO SCH (21:07)
--- NOTE | 2019-06-24 02:30 | Progress Notes ---
DATE: 06/23/2019 PSYCHIATRIC PROGRESS NOTE SUBJECTIVE: Staff was spoken to. The patient is interviewed. Mood is noted to be still irritable. Affect is constricted. The patient at least is able to verbalize some of her concerns. The patient is currently on the ____ acid, which is being given 250 mg twice a day. Plan to increase that 3 times a day because of her mood swings and the patient is going to be closely monitored with the supportive therapy. ASSESSMENT: The patient is still having mood swings. Paranoia is coming down. PLAN: To continue the patient with supportive therapy and current medications and followup. JOB# [id number]
[2019-06-24] MEDS: Haloperidol Lactate Oral sol. 2 mg/mL Udc PO SCH ×2 (08:48→16:57)
--- NOTE | 2019-06-24 19:32 | Internal Medicine Prog Note ---
Internal Medicine Subjective - Subjective Service Date: 06/24/19 Patient seen and examined:: without staff (SHE IS DOING WELL), chart reviewed Patient is:: awake, verbal, arousable, in bed, talking, confused Per staff patient has:: no adverse event Internal Medicine Objective - Physical Exam Vitals and I&O: Vital Signs Temp 97.9 F 06/24/19 14:00 Pulse 87 06/24/19 14:00 Resp 18 06/24/19 14:00 BP 118/70 06/24/19 14:00 Pulse Ox 98 06/24/19 14:00 Intake & Output 06/24/19 06/24/19 06/25/19 06:59 18:59 06:59 Intake Total 1400 Balance 1400 Intake: Oral 1400 Other: # Voids 4 # Bowel Movements 1 Active Medications: Current Medications Acetaminophen (Tylenol) 650 mg PO Q4HR PRN PRN Reason: Mild Pain (Scale 1-3) Stop: 08/07/19 02:29 Acetaminophen (Tylenol) 650 mg PO Q4H PRN PRN Reason: TEMP ABOVE 100 Stop: 08/07/19 09:15 Amlodipine Besylate (Norvasc) 5 mg PO DAILY [facility] Stop: 08/07/19 08:59 Last Admin: 06/24/19 08:50 Dose: 5 mg Atorvastatin Calcium (Lipitor) 10 mg PO HS [facility]; Protocol Stop: 08/07/19 20:59 Last Admin: 06/23/19 21:07 Dose: Not Given Divalproex Sodium (Depakote Dr) 250 mg PO TID [facility]; Protocol Stop: 08/22/19 13:59 Last Admin: 06/24/19 14:00 Dose: Not Given Docusate Sodium (Colace) 100 mg PO BID [facility] Stop: 08/07/19 08:59 Last Admin: 06/24/19 16:57 Dose: 100 mg Haloperidol Decanoate (Haldol Dec) 25 mg IM QMONTH [facility]; Protocol Stop: 08/20/19 07:14 Last Admin: 06/21/19 09:28 Dose: Not Given Haloperidol Lactate (Haldol) 2 mg PO BID [facility]; Protocol Stop: 08/18/19 16:59 Last Admin: 06/24/19 16:57 Dose: 2 mg Lorazepam (Ativan) 0.5 mg PO Q4HR PRN; Protocol PRN Reason: Anxiety Stop: 07/08/19 02:29 Magnesium Hydroxide (Milk Of Magnesia) 30 ml PO HS PRN PRN Reason: Constipation Memantine (Namenda) 5 mg PO DAILY [facility] Stop: 08/07/19 08:59 Last Admin: 06/24/19 08:49 Dose: 5 mg Zolpidem Tartrate (Ambien) 5 mg PO HS PRN PRN Reason: Insomnia Stop: 08/07/19 02:55 Last Admin: 06/17/19 21:31 Dose: 5 mg General: demented HEENT: NC/AT, PERRLA, EOMI, anicteric sclerae, throat clear Neck: Supple, No JVD, No thyromegaly, +2 carotid pulse wo bruit, No LAD Lungs: CTAB Abdomen: soft, non-tender, non-distended Extremities: clear Neurological: no change - Procedures Procedures: Procedures Procedure Code Date GROUP PSYCHOTHERAPY 34123 02/12/16 GROUP PSYCHOTHERAPY GZHZZZZ 02/12/16 OTHER GROUP THERAPY 94.44 01/18/15 RECREATIONAL THERAPY 93.81 06/04/10 VACCINATION NEC 99.55 01/21/14 Internal Medicine Assmt/Plan - Assessment Assessment: 1.HTN. 2.DJD. 3.DEMENTIA. 4.PSYCHOSIS - Plan Plan: CONTINUE ON CURRENT MEDICATION AND DIET. Nutritional Asmnt/Malnutr-PDOC - Dietary Evaluation Malnutrition Findings (Please click <Entered> for more info): Nutritional Asmnt/Malnutrition Start: 06/11/19 12: 54 Text: Status: Complete Freq: Protocol: Document 06/11/19 12:54 GASPER (Rec: 06/11/19 12:57 [email or web address]) Nutritional Asmnt/Malnutrition Patient General Information Nutritional Screening Moderate Risk Diagnosis Psychosis Pertinent Medical Hx/Surgical Hx HTN, DJD, Dementia Subjective Information Pt is a 73-year-old female admitted on 06/08 d/t acute agitation and aggressive behavior. Pt is eating 100% of meals since admit date Per Meal/Nutrition Activity Record . Dietary is currently providing an estimated 2100 kcals and 95 gm Pro to meet 100+% kcal and 100+% Pro needs . In morning flash meeting, nurse stated pt takes meds with Apple Juice. Visited pt today at lunchtime, opt was eating. I introduced myself to the pt and she stated she was not Samantha, she seemed confused. TEXTILE SLITTING MACHINE OPERATOR stated the pt prefers eating standing up and eats slow, but well. Anthropometrics HT: 56 WT: 169 LB (34.92 kg) ABW: 139 LB (63.52 kg) BMI: 27.28 (Overweight) GI/ Skin Integrity GI: WNL, Soft, Flat, Non- tender BM: Not Noted I/O: 1270/Not Noted Skin: WNL, Intact [place]: 17 Diet Order: Cardiac, NCS, 2g Na Estimated Energy Needs: ( Geriatric, ABW) 9890-2315 kcals (25-30 kcals/ kg) 64-76g Pro (1.0-1.2 g/kg) 7680-7813 ml (25-30 ml/kg) Current Diet Order/ Nutrition Support Cardiac, NCS, 2g Na Pertinent Medications Lipitor, Colace, MOM (PRN) Pertinent Labs No Labs to Report Nutritional Hx/Data Height 1.68 m Height (Calculated Centimeters) 167.6 Current Weight (lbs) 76.657 kg Weight (Calculated Kilograms) 76.7 Weight (Calculated Grams) 02678.1 [place] Body Weight 130 LB (59 kg) % [place] Body Weight 130 Body Mass Index (BMI) 27.2 Weight Status Overweight GI Symptoms GI Symptoms None Last BM Not Noted Skin Integrity/Comment: Skin: WNL, Intact [place]: 17 Estimated Nutritional Goals BEE in Kcals: Adj wt of IBW Calories/Kcals/Kg 25-30 Kcals Calculated 5275-6911 Protein: Adj wt of IBW Protein g/k.0-1.2 Protein Calculated 64-76 Fluid: ml 3678-5501 ml (25-30 ml/kg) Nutritional Problem 1. Problem Problem No nutrition diagnosis at this time. Etiology N/A Signs/Symptoms: N/A Intervention/Recommendation Comments Continue with Cardiac, NCS, 2g Na diet as ordered. Expected Outcomes/Goals Expected Outcomes/Goals 1. PO intake to continue to meet >75% of nutritional needs . 2. Monitor PO intake, wt, nutrition related labs, and skin integrity. 3. F/U as low risk in 7-10 days, 06/18-06/21
[2019-06-24] MEDS: Atorvastatin Calcium 10 MG TAB PO SCH (21:00)
--- NOTE | 2019-06-24 22:46 | Progress Notes ---
DATE: 06/24/2019 SUBJECTIVE: Staff was spoken to. The patient is interviewed. Mood is noted to be irritable. Affect is constricted. The patient's insight and judgment are noted to be still impaired. Staff have been trying to look for placement for this patient, but the previous place does not want to take the patient because of her agitation and aggressive behavior. Coping skills are noted to be still poor. Continues to be paranoid. ASSESSMENT: The patient is still psychotic. PLAN: To continue the patient with the current medications and follow up. JOB# [id number]
[2019-06-25] MEDS: Haloperidol Lactate Oral sol. 2 mg/mL Udc PO SCH (08:28)
--- NOTE | 2019-06-25 15:16 | Internal Medicine Prog Note ---
Internal Medicine Subjective - Subjective Service Date: 06/25/19 Patient seen and examined:: without staff (SHE IS DOING WELL) Patient is:: awake, verbal, arousable, in bed, talking, confused Per staff patient has:: no adverse event Internal Medicine Objective - Physical Exam Vitals and I&O: Vital Signs Temp 98.2 F 06/25/19 14:00 Pulse 72 06/25/19 14:00 Resp 20 06/25/19 14:00 BP 124/68 06/25/19 14:00 Pulse Ox 98 06/25/19 14:00 Intake & Output 06/24/19 06/25/19 06/25/19 18:59 06:59 18:59 Intake Total 1400 120 Balance 1400 120 Intake: Oral 1400 120 Other: # Voids 4 3 # Bowel Movements 1 Active Medications: Current Medications Acetaminophen (Tylenol) 650 mg PO Q4HR PRN PRN Reason: Mild Pain (Scale 1-3) Stop: 08/07/19 02:29 Acetaminophen (Tylenol) 650 mg PO Q4H PRN PRN Reason: TEMP ABOVE 100 Stop: 08/07/19 09:15 Amlodipine Besylate (Norvasc) 5 mg PO DAILY [facility] Stop: 08/07/19 08:59 Last Admin: 06/25/19 08:28 Dose: 5 mg Atorvastatin Calcium (Lipitor) 10 mg PO HS [facility]; Protocol Stop: 08/07/19 20:59 Last Admin: 06/24/19 21:00 Dose: 10 mg Divalproex Sodium (Depakote Dr) 250 mg PO TID [facility]; Protocol Stop: 08/22/19 13:59 Last Admin: 06/25/19 14:00 Dose: Not Given Docusate Sodium (Colace) 100 mg PO BID [facility] Stop: 08/07/19 08:59 Last Admin: 06/25/19 08:28 Dose: 100 mg Haloperidol Decanoate (Haldol Dec) 25 mg IM QMONTH [facility]; Protocol Stop: 08/20/19 07:14 Last Admin: 06/21/19 09:28 Dose: Not Given Haloperidol Lactate (Haldol) 2 mg PO BID [facility]; Protocol Stop: 08/18/19 16:59 Last Admin: 06/25/19 08:28 Dose: 2 mg Lorazepam (Ativan) 0.5 mg PO Q4HR PRN; Protocol PRN Reason: Anxiety Stop: 07/08/19 02:29 Last Admin: 06/25/19 08:28 Dose: 0.5 mg Magnesium Hydroxide (Milk Of Magnesia) 30 ml PO HS PRN PRN Reason: Constipation Memantine (Namenda) 5 mg PO DAILY [facility] Stop: 08/07/19 08:59 Last Admin: 06/25/19 08:28 Dose: 5 mg Zolpidem Tartrate (Ambien) 5 mg PO HS PRN PRN Reason: Insomnia Stop: 08/07/19 02:55 Last Admin: 06/24/19 21:00 Dose: 5 mg General: demented HEENT: NC/AT, PERRLA, EOMI, anicteric sclerae, throat clear Neck: Supple, No JVD, No thyromegaly, +2 carotid pulse wo bruit, No LAD Lungs: CTAB Abdomen: soft, non-tender, non-distended Extremities: clear Neurological: no change - Procedures Procedures: Procedures Procedure Code Date GROUP PSYCHOTHERAPY 45520 02/12/16 GROUP PSYCHOTHERAPY GZHZZZZ 02/12/16 OTHER GROUP THERAPY 94.44 01/18/15 RECREATIONAL THERAPY 93.81 06/04/10 VACCINATION NEC 99.55 01/21/14 Internal Medicine Assmt/Plan - Assessment Assessment: 1.HTN. 2.DJD. 3.DEMENTIA. 4.PSYCHOSIS - Plan Plan: CONTINUE ON CURRENT MEDICATION AND DIET. Nutritional Asmnt/Malnutr-PDOC - Dietary Evaluation Malnutrition Findings (Please click <Entered> for more info): Nutritional Asmnt/Malnutrition Start: 06/11/19 12: 54 Text: Status: Complete Freq: Protocol: Document 06/11/19 12:54 GASPER (Rec: 06/11/19 12:57 [email or web address]) Nutritional Asmnt/Malnutrition Patient General Information Nutritional Screening Moderate Risk Diagnosis Psychosis Pertinent Medical Hx/Surgical Hx HTN, DJD, Dementia Subjective Information Pt is a 73-year-old female admitted on 06/08 d/t acute agitation and aggressive behavior. Pt is eating 100% of meals since admit date Per Meal/Nutrition Activity Record . Dietary is currently providing an estimated 2100 kcals and 95 gm Pro to meet 100+% kcal and 100+% Pro needs . In morning flash meeting, nurse stated pt takes meds with Apple Juice. Visited pt today at lunchtime, opt was eating. I introduced myself to the pt and she stated she was not Samantha, she seemed confused. FARM HAND stated the pt prefers eating standing up and eats slow, but well. Anthropometrics HT: 56 WT: 169 LB (34.92 kg) ABW: 139 LB (63.52 kg) BMI: 27.28 (Overweight) GI/ Skin Integrity GI: WNL, Soft, Flat, Non- tender BM: Not Noted I/O: 1270/Not Noted Skin: WNL, Intact Arden: 17 Diet Order: Cardiac, NCS, 2g Na Estimated Energy Needs: ( Geriatric, ABW) 7509-6930 kcals (25-30 kcals/ kg) 64-76g Pro (1.0-1.2 g/kg) 3426-5373 ml (25-30 ml/kg) Current Diet Order/ Nutrition Support Cardiac, NCS, 2g Na Pertinent Medications Lipitor, Colace, MOM (PRN) Pertinent Labs No Labs to Report Nutritional Hx/Data Height 1.68 m Height (Calculated Centimeters) 167.6 Current Weight (lbs) 76.657 kg Weight (Calculated Kilograms) 76.7 Weight (Calculated Grams) 47102.1 [place] Body Weight 130 LB (59 kg) % [place] Body Weight 130 Body Mass Index (BMI) 27.2 Weight Status Overweight GI Symptoms GI Symptoms None Last BM Not Noted Skin Integrity/Comment: Skin: WNL, Intact Arden: 17 Estimated Nutritional Goals BEE in Kcals: Adj wt of IBW Calories/Kcals/Kg 25-30 Kcals Calculated 8198-1714 Protein: Adj wt of IBW Protein g/k.0-1.2 Protein Calculated 64-76 Fluid: ml 6404-9342 ml (25-30 ml/kg) Nutritional Problem 1. Problem Problem No nutrition diagnosis at this time. Etiology N/A Signs/Symptoms: N/A Intervention/Recommendation Comments Continue with Cardiac, NCS, 2g Na diet as ordered. Expected Outcomes/Goals Expected Outcomes/Goals 1. PO intake to continue to meet >75% of nutritional needs . 2. Monitor PO intake, wt, nutrition related labs, and skin integrity. 3. F/U as low risk in 7-10 days, 06/18-06/21
--- NOTE | 2019-06-25 19:50 | Discharge Summary ---
DATE OF DISCHARGE: 06/25/2019 IDENTIFYING DATA: The patient is a 73-year-old -Citizen Of [place] woman, resident of a half-way facility. Information obtained by directly interviewing the patient as well as reviewing the admission papers. JUSTIFICATION FOR HOSPITALIZATION: The patient is admitted here on a voluntary basis in view of her acute agitation and psychosis. CHIEF COMPLAINT: "You tell me." HISTORY OF PRESENT ILLNESS: Please refer to the 06/08/2019 dictation done by me. Physical examination at the time of admission was done by Dr. Smyth. Physical examination was done by Dr. Rose and blood work done through hospitalization has been reviewed by him and no major intervention was needed. HOSPITAL COURSE AND RESPONSE TO TREATMENT: The patient has been observed on inpatient unit, provided with supportive psychotherapy. Initially, the patient was started on the Seroquel, later Zyprexa and none of these medications have been of help to her and hence the patient has been placed on Haldol and the patient has been finally given the Haldol Decanoate 25 mg IM and the patient also has been placed on the valproic acid 250 mg that was increased to 3 times a day. With these medications. The patient's aggressive behavior started to resolve and the patient was discharged to be followed up on an outpatient basis. DIAGNOSES AT THE TIME OF DISCHARGE: AXIS I: Schizoaffective disorder. AXIS II: None. AXIS III: As per Dr. Rose. AFTERCARE PLAN: The patient is discharged to self and to be followed up on an outpatient basis. JOB# [id number]
== END 2019-06-25 17:30 | DRG 885 ==
LOC: GERO 06-08 02:04
PROVIDERS: ADMIT Psychiatry & Neurology Psychiatry; ATTEND Psychiatry & Neurology Psychiatry
DX: F20.0 Paranoid schizophrenia (principal); F03.90 Unspecified dementia, unspecified severity, without behavioral disturbance, psychotic disturbance, mood disturbance, and anxiety; F29 Unspecified psychosis not due to a substance or known physiological condition; I10 Essential (primary) hypertension; M19.90 Unspecified osteoarthritis, unspecified site
CPT/HCPCS: 83036-90; 90899; G0410; J1200; J1630; J7051

== ENCOUNTER 2020-04-09 09:44 | Inpatient (IN) | payer MEDICARE, MEDICAID ==
[2020-04-09 20:44] VITALS: BP 145/79
[2020-04-09] MEDS ORDERED: Acetaminophen 500 MG TAB PO PRN (21:06)
[2020-04-09] MEDS ORDERED: Magnesium Hydroxide (MOM) 30 mL UDC PO PRN (21:06)
[2020-04-09] MEDS ORDERED: Maalox 30 mL Cup PO PRN (21:06)
[2020-04-10] MEDS: Escitalopram Oxalate 5 mg Tab PO SCH ×2 (08:37→09:00)
[2020-04-10] MEDS ORDERED: Haloperidol Lactate 5 mg/mL 1mL Vial IM ONE (11:15)
--- NOTE | 2020-04-10 16:05 | Psychiatric Evaluation ---
DATE OF SERVICE: 04/09/2020 IDENTIFYING DATA: The patient is a 74-year-old -[place] woman, resident of [facility]. Information obtained by directly interviewing the patient as well as reviewing the admission papers and they are reliable. JUSTIFICATION OF HOSPITALIZATION: The patient is admitted on 5149 as a danger to others. CHIEF COMPLAINT: "I don't care." HISTORY OF PRESENT ILLNESS: This is one of multiple psychiatric hospitalizations for this patient who has been diagnosed to have schizophrenia, chronic paranoid type and is being followed up by Dr. Bowers on an outpatient basis. However, the patient is reported for the past 2 weeks to have been getting very aggressive, agitated, screaming and yelling at the staff. The patient has not been able to be redirected. Insight and judgment at this time are noted to be still impaired. Impulse control is noted to be poor. The patient could not be contained at a lower level of care and hence the patient has been referred over here for further stabilization. The patient at this time is not willing to comply with request. Prior to the hospitalization, the patient has been on Zyprexa, Namenda, Aricept, Lexapro and Lipitor. The patient's compliance is noted to be questionable. SUBSTANCE ABUSE HISTORY: None. PHYSICAL OR SEXUAL ABUSE HISTORY: None. LEGAL PROBLEMS: None at this time. SOCIAL HISTORY: The patient is a resident of the [facility]. MENTAL STATUS EXAMINATION: The patient is a 74-year-old woman looking her stated age, superficially cooperative. Eye contact is poor. Mood is noted to be irritable. Affect is constricted. Insight and judgment at this time are noted to be very much impaired. Impulse control is noted to be limited. Coping skills are noted to be limited. The patient is screaming and yelling. Continues to be very paranoid. The patient is not making much sense. The patient is going on a tangent. The patient is responding to internal stimuli. The patient is alert and aware that she is in the hospital, but attention span and concentration are noted to be very poor. The patient is not able to recall the three digits that are told her 5 minutes prior to this. The patient is of average intelligence. The patient's behavior is a clear danger to others at this time. The patient is not suicidal. DIAGNOSTIC IMPRESSION: AXIS I: Schizophrenia, chronic paranoid type with acute exacerbation. AXIS II: None. AXIS III: As per the primary care physician. IMMEDIATE TREATMENT PLAN: The patient is going to be observed on inpatient unit, provided with supportive psychotherapy. The patient is going to be closely monitored. I encouraged to verbalize the concerns rather than to act out. Once stabilized, the patient is going to be discharged to [facility] to be followed up on an outpatient basis at [facility]. JOB# [id number]
[2020-04-10] MEDS ORDERED: Magnesium Hydroxide (MOM) 30 mL UDC PO PRN (20:54)
[2020-04-10] MEDS ORDERED: Non-Formulary Item 1 EA (Melatonin [Melatonin] 3 MG) PO SCH (21:00)
[2020-04-10] MEDS: Atorvastatin Calcium 10 MG TAB PO SCH (21:11)
--- NOTE | 2020-04-10 22:22 | History & Physical ---
ADMIT DATE: 04/09/2020 CHIEF COMPLAINT: Psychosis. HISTORY OF PRESENT ILLNESS: The patient is a 74-year-old female with long history of hypertension, hyperlipidemia, psychosis, admitted to [facility] under Dr. Bowers's service. The patient denies chest pain, shortness of breath, nausea, vomiting, fever or chills. PAST MEDICAL HISTORY: Significant for psychosis, hypertension, hyperlipidemia, chronic constipation, degenerative joint disease. PAST SURGICAL HISTORY: No recent surgery. ALLERGIES: ASPIRIN. SOCIAL HISTORY: No smoking, no alcohol, no drug. FAMILY HISTORY: Noncontributory. MEDICATIONS: Follow admission reconciliation. REVIEW OF SYSTEMS: RENAL SYSTEM: No history of chronic renal disorder. CARDIOVASCULAR SYSTEM: She has history of hypertension. ENDOCRINE SYSTEM: No diabetes or thyroid problem. GASTROINTESTINAL SYSTEM: She has a history of constipation. GENITOURINARY: No dysuria or hematuria. HEMATOLOGICAL SYSTEM: No bleeding tendency. RESPIRATORY SYSTEM: No asthma. PHYSICAL EXAMINATION: GENERAL: She is awake, alert, confused. VITAL SIGNS: Temperature 97.8, heart rate 85, blood pressure 128/58. HEENT: Pupils are reacting equal to light and accommodation. Sclerae clear. NECK: Supple. Negative for lymphadenopathy, JVD or bruit. CHEST: Entry of air bilaterally normal. No rhonchi or wheezing. HEART: S1, S2 normal. No murmurs, rubs or gallop rhythm. ABDOMEN: Soft, bowel sounds positive. EXTREMITIES: No edema. NEUROLOGIC: She is awake, alert, no focal muscle deficit. Cranial nerve #1: The patient is unable to smell ____. Cranial nerve #2: The patient is unable to read printed page. Cranial nerve #3: The patient is able to move eyeball upward and outward. Cranial nerve #4: The patient is able to move eyeball inward and downward. Cranial nerve #5: The patient able to clench teeth, has normal sensation to forehead. Cranial nerve #6: The patient is able move eyeball lateral on both sides. Cranial nerve #7: The patient is able to move eyebrow upwards on both sides. Cranial nerve #8: The patient is able to be able to hear finger rubs on both sides. Cranial nerve #9: The patient has a normal gag reflex. Cranial nerve #10: The patient is able to move soft palate upward on each side. Cranial nerve #11: The patient is able to shrug shoulder on both sides. Cranial nerve #12: The patient able to stick tongue straight. Motor and sensory: Gait normal. Romberg normal. Muscle tone normal. Deep tendon reflexes within normal. Plantar normal. Nhfqoa-tl-[id number] normal. [id number] normal. Sensory normal. SKIN: Intact. ASSESSMENT: 1. Hypertension. 2. Hyperlipidemia. 3. Chronic constipation. 4. Psychosis. PLAN: The patient in the hospital under Dr. Bowers's service and medical problem addressed during hospitalization is psychosis. Medical problems addressed at discharge are hypertension and hyperlipidemia. The patient is medically stable for activity. Thank you, Dr. Bowers for asking me to see your patient. The patient will follow up with primary physician upon discharge. The patient is a full code. JOB# [id number]
[2020-04-11] MEDS: Escitalopram Oxalate 5 mg Tab PO SCH (08:24)
[2020-04-11] MEDS: Multivitamin w/ Minerals Tab PO SCH ×2 (08:24→11:26)
--- NOTE | 2020-04-11 14:11 | Progress Notes ---
DATE: 04/11/2020 SUBJECTIVE: Staff was spoken to. The patient is interviewed. Mood is noted to be irritable. Affect is constricted. Insight and judgment are noted to be still impaired. Impulse control is noted to be limited. The patient is screaming and yelling and the patient is not able to contract for safety. The patient needs to be redirected constantly. No side effects to the medications are noted. The patient has to be given a dose of Haldol yesterday to calm her down. The patient at this time has been having difficult time to calm down. The patient has no insight into her illness. The patient is going to be discontinued off of the escitalopram and the patient is going to be started on a mood stabilizer in view of her mood swings. The patient has no insight into her illness. ASSESSMENT: The patient is still presenting as a danger to others. PLAN: To continue the patient with the supportive therapy, I encouraged the patient to verbalize the concerns rather than to act out. JOB# [id number]
[2020-04-11] MEDS: Atorvastatin Calcium 10 MG TAB PO SCH (20:17)
--- NOTE | 2020-04-11 21:22 | Internal Medicine Prog Note ---
Internal Medicine Subjective - Subjective Service Date: 04/11/20 Patient seen and examined:: without staff (SHE IS CONFUSED) Patient is:: awake, verbal, in bed, talking, confused Per staff patient has:: no adverse event Internal Medicine Objective - Physical Exam Vitals and I&O: Vital Signs Temp 98.6 F 04/11/20 20:17 Pulse 102 04/11/20 20:17 Resp 20 04/11/20 20:17 BP 115/51 04/11/20 20:17 Pulse Ox 98 04/11/20 20:17 Intake & Output 04/11/20 04/11/20 04/12/20 06:59 18:59 06:59 Intake Total 120 240 Balance 120 240 Intake: Oral 120 240 Other: # Voids 3 1 Active Medications: Current Medications Acetaminophen (Tylenol Extra Strength) 1,000 mg PO Q6H PRN PRN Reason: Pain (Moderate 4-6) Stop: 06/08/20 21:05 Acetaminophen (Tylenol) 650 mg PO Q4H PRN PRN Reason: TEMP ABOVE 99F Stop: 06/09/20 00:53 Acetaminophen (Tylenol) 650 mg PO Q4HR PRN PRN Reason: Mild Pain (Scale 1-3) Stop: 06/09/20 20:53 Al Hydrox/Mg Hydrox/Simethicone (Maalox) 30 ml PO Q4HR PRN PRN Reason: GI DISTRESS Stop: 06/08/20 21:05 Amlodipine Besylate (Norvasc) 5 mg PO DAILY [facility] Stop: 06/10/20 08:59 Last Admin: 04/11/20 08:25 Dose: Not Given Ascorbic Acid (Vitamin C) 500 mg PO DAILY [facility] Stop: 06/10/20 08:59 Last Admin: 04/11/20 11:28 Dose: Not Given Atorvastatin Calcium (Lipitor) 10 mg PO HS [facility]; Protocol Stop: 06/09/20 20:59 Last Admin: 04/11/20 20:17 Dose: 10 mg Cholecalciferol (Vitamin D3) 1,000 iu PO DAILY [facility] Stop: 06/10/20 08:59 Last Admin: 04/11/20 11:25 Dose: Not Given Divalproex Sodium (Depakote Dr) 250 mg PO Q8HR [facility]; Protocol Stop: 06/10/20 12:59 Last Admin: 04/11/20 20:58 Dose: Not Given Docusate Sodium (Colace) 200 mg PO DAILY [facility] Stop: 06/10/20 08:59 Last Admin: 04/11/20 11:26 Dose: Not Given Lorazepam (Ativan) 0.5 mg PO Q4HR PRN; Protocol PRN Reason: Anxiety Stop: 05/09/20 21:05 Last Admin: 04/10/20 08:34 Dose: 0.5 mg Lorazepam (Ativan) 0.5 mg PO BID [facility]; Protocol Stop: 06/09/20 08:59 Last Admin: 04/11/20 16:26 Dose: 0.5 mg Magnesium Hydroxide (Milk Of Magnesia) 30 ml PO HS PRN PRN Reason: Constipation Stop: 06/09/20 20:53 Memantine (Namenda) 10 mg PO BID [facility] Stop: 06/09/20 08:59 Last Admin: 04/11/20 16:26 Dose: 10 mg Olanzapine (Zyprexa) 5 mg PO Q12HR [facility]; Protocol Stop: 06/09/20 08:59 Last Admin: 04/11/20 20:22 Dose: 5 mg Zolpidem Tartrate (Ambien) 5 mg PO HS PRN PRN Reason: Insomnia Stop: 06/08/20 21:05 Last Admin: 04/11/20 20:22 Dose: 5 mg General: alert, demented HEENT: NC/AT, PERRLA, EOMI, anicteric sclerae, throat clear Neck: Supple, No JVD, No thyromegaly, +2 carotid pulse wo bruit Lungs: CTAB Cardiovascular: RRR, Normal S1, Normal S2, without murmur Abdomen: soft, non-tender, non-distended Extremities: clear Neurological: unable to follow command - Procedures Procedures: Procedures Procedure Code Date GROUP PSYCHOTHERAPY 42769 02/12/16 GROUP PSYCHOTHERAPY GZHZZZZ 02/12/16 OTHER GROUP THERAPY 94.44 01/18/15 RECREATIONAL THERAPY 93.81 06/04/10 VACCINATION NEC 99.55 01/21/14 Internal Medicine Assmt/Plan - Assessment Assessment: 1.HTN 2.HYPERLIPIDEMIA. 3.CHRONIC CONSTIPATION. 4.PSYCHOSIS - Plan Plan: CONTINUE ON CURRENT MEDICATION AND DIET
[2020-04-12] MEDS: Multivitamin w/ Minerals Tab PO SCH (08:42)
--- NOTE | 2020-04-12 11:24 | Consultation ---
DATE OF CONSULTATION: 04/11/2020 TYPE OF CONSULTATION: Psychology. HISTORY OF PRESENT ILLNESS: The patient is a 74-year-old -[place] female. The patient is known to this rewriter from multiple previous hospitalizations. The following is by review of the medical record as well as by the patient's self-report. The patient is being admitted on a 5150 as a danger to others. Upon interview, the patient is verbally aggressive and easily agitated. The patient continued to have yelling episodes towards the staff and this rewriter during the clinical interview. The staff at the patient's facility report that she had become noncompliant with her medication and her behavior had become uncontrollable.The patient's insight and judgment are impaired. The patient was unable to verbally contract for safety, i.e., no harm to others and no self harm. PAST MEDICAL HISTORY: Please see history and physical by Dr. Gonzalez. PAST PSYCHIATRIC HISTORY: The patient has a long history of schizophrenia, chronic paranoid type. The patient is under the care of Dr. Samm Bowers at the patient's placement, which is [facility]. The patient has multiple previous hospitalizations. SUBSTANCE ABUSE HISTORY: The patient did not answer these questions. Record review indicates no history of substance use or abuse with alcohol, tobacco or illicit drug use. BRIEF PSYCHOSOCIAL HISTORY: The patient did not answer questions about occupational or educational history or holiness affiliation. The patient did not answer questions about involvement by family members in her care. According to review of the record, the patient's daughter, Raissa Gipson, is involved in her care as well as perhaps the patient's granddaughter. The patient did not answer questions about having any current legal problems or any history of physical or sexual abuse. MENTAL STATUS EXAMINATION: The patient appears to be her stated age. The patient's attitude is uncooperative. Eye contact is poor. Speech is loud with episodes of yelling and screaming. Mood is irritable. Affect is mood congruent and reactive. The patient is easily agitated. The patient did not answer questions about whether she is experiencing any auditory or visual hallucinations. There is evidence of paranoid ideation. The patient also is not making much sense. Thought process indicates loose associations with flight of ideas and is markedly tangential. The patient appears to be responding to internal stimuli. Possible grandiose delusions may also be present. Impulse control is impaired. The patient's behavior on the unit is poorly redirectable and uncontrollable at times. Concentration is very poor. The patient did not participate in the memory assessment. The patient's memory seems to be impaired for short-term and long- term dimensions; she was unable to sustain focus and attention. General intellectual functioning is estimated to be below average based on vocabulary. This is an estimate with respect to this assessment. The patient denied any suicidal ideation, plan or intention. Sensorium is alert but oriented to self and place only. The patient did not answer questions about homicidal ideation or wishing to harm others; however , this has been reported by the staff at the patient's facility. The patient did not participate in the interpretation of proverbs. Insight is impaired. Judgment is impaired. DIAGNOSTIC IMPRESSION: AXIS I: History of schizophrenia, chronic, paranoid type with acute exacerbation. AXIS II: Deferred. AXIS III: Per Dr. Gonzalez. TREATMENT PLAN: The patient has been seen by Dr. Haynes for psychiatric evaluation and for the management of the patient's psychotropic medications. We will provide supportive psychotherapy to include de-escalation and limit setting as well as boundary definitions and awareness. We will encourage the patient to become compliant and stay compliant with all aspects of her care and treatment and to respond to redirection by the staff. We will provide reality orientation differentiation and integration. We will provide coping strategies for chronic severe mental illness as well as for phase of life issues. We will provide daily opportunities for the patient to verbally contract for safety, i.e., no harm to others and no self-harm. We will follow up in 2-3 days to continue the present treatment if the patient is able to demonstrate the capacity to benefit from psychology services as well as the willingness to participate in this treatment. Thank you, Dr. Haynes for this consult and the opportunity to participate with you in this patient's care. JOB# [id number] BRITTANIE
--- NOTE | 2020-04-12 14:14 | Progress Notes ---
DATE: 04/12/2020 SUBJECTIVE: Staff was spoken to. The patient is interviewed. Mood is noted to be irritable. Affect is constricted. Insight and judgment are noted to be still impaired. Impulse control is noted to be limited. Coping skills are noted to be limited. The patient tends to be very intrusive, argumentative. The patient has no insight into her illness. The patient has been placed on olanzapine 5 mg twice a day and in view of her age, we are going very slow with the medications. The patient is going to be closely monitored and encouraged to participate in the groups and verbalize the concerns. She continues to be aggressive. The patient's Depakote is going to be gradually increased. ASSESSMENT: The patient is still psychotic and impulsive. PLAN: To continue the patient with the supportive therapy and followup. JOB# [id number]
--- NOTE | 2020-04-12 16:23 | Internal Medicine Prog Note ---
Internal Medicine Subjective - Subjective Service Date: 04/12/20 Patient seen and examined:: without staff (SHE IS CONFUSED) Patient is:: awake, verbal, in bed, talking, confused Per staff patient has:: no adverse event Internal Medicine Objective - Physical Exam Vitals and I&O: Vital Signs Temp 97.0 F 04/12/20 14:00 Pulse 85 04/12/20 14:00 Resp 19 04/12/20 14:00 BP 144/72 04/12/20 14:00 Pulse Ox 97 04/12/20 14:00 Intake & Output 04/11/20 04/12/20 04/12/20 18:59 06:59 18:59 Intake Total 420 Balance 420 Intake: Oral 420 Other: # Voids 2 # Bowel Movements 0 Active Medications: Current Medications Acetaminophen (Tylenol Extra Strength) 1,000 mg PO Q6H PRN PRN Reason: Pain (Moderate 4-6) Stop: 06/08/20 21:05 Acetaminophen (Tylenol) 650 mg PO Q4H PRN PRN Reason: TEMP ABOVE 99F Stop: 06/09/20 00:53 Acetaminophen (Tylenol) 650 mg PO Q4HR PRN PRN Reason: Mild Pain (Scale 1-3) Stop: 06/09/20 20:53 Al Hydrox/Mg Hydrox/Simethicone (Maalox) 30 ml PO Q4HR PRN PRN Reason: GI DISTRESS Stop: 06/08/20 21:05 Amlodipine Besylate (Norvasc) 5 mg PO DAILY REPLACED BY [facility] Stop: 06/10/20 08:59 Last Admin: 04/12/20 08:42 Dose: Not Given Ascorbic Acid (Vitamin C) 500 mg PO DAILY [facility]PLACED BY [facility] Stop: 06/10/20 08:59 Last Admin: 04/12/20 08:42 Dose: Not Given Atorvastatin Calcium (Lipitor) 10 mg PO [facility]; Protocol Stop: 06/09/20 20:59 Last Admin: 04/11/20 20:17 Dose: 10 mg Cholecalciferol (Vitamin D3) 1,000 iu PO DAILY REPLACED BY [facility] Stop: 06/10/20 08:59 Last Admin: 04/12/20 08:42 Dose: Not Given Docusate Sodium (Colace) 200 mg PO DAILY REPL[facility]ED BY [facility] Stop: 06/10/20 08:59 Last Admin: 04/12/20 08:41 Dose: Not Given Lorazepam (Ativan) 0.5 mg PO Q4HR PRN; Protocol PRN Reason: Anxiety Stop: 05/09/20 21:05 Last Admin: 04/10/20 08:34 Dose: 0.5 mg Lorazepam (Ativan) 0.5 mg PO BID REPLACED BY [facility]; Protocol Stop: 06/09/20 08:59 Last Admin: 04/12/20 08:42 Dose: Not Given Magnesium Hydroxide (Milk Of Magnesia) 30 ml PO HS PRN PRN Reason: Constipation Stop: 06/09/20 20:53 Memantine (Namenda) 10 mg PO BID [facility] Stop: 06/09/20 08:59 Last Admin: 04/12/20 08:42 Dose: Not Given Olanzapine (Zyprexa) 5 mg PO Q12HR REPLACED BY [facility]; Protocol Stop: 06/09/20 08:59 Last Admin: 04/12/20 08:42 Dose: Not Given Valproate Sodium (Depakene) 250 mg PO BID REPLACED BY [facility]; Protocol Stop: 06/11/20 16:59 Zolpidem Tartrate (Ambien) 5 mg PO HS PRN PRN Reason: Insomnia Stop: 06/08/20 21:05 Last Admin: 04/12/20 00:19 Dose: 5 mg General: alert, demented HEENT: NC/AT, PERRLA, EOMI, anicteric sclerae, throat clear Neck: Supple, No JVD, No thyromegaly, +2 carotid pulse wo bruit Lungs: CTAB Cardiovascular: RRR, Normal S1, Normal S2, without murmur Abdomen: soft, non-tender, non-distended Extremities: clear Neurological: unable to follow command - Procedures Procedures: Procedures Procedure Code Date GROUP PSYCHOTHERAPY 08227 02/12/16 GROUP PSYCHOTHERAPY GZHZZZZ 02/12/16 OTHER GROUP THERAPY 94.44 01/18/15 RECREATIONAL THERAPY 93.81 06/04/10 VACCINATION NEC 99.55 01/21/14 Internal Medicine Assmt/Plan - Assessment Assessment: 1.HTN 2.HYPERLIPIDEMIA. 3.CHRONIC CONSTIPATION. 4.PSYCHOSIS - Plan Plan: CONTINUE ON CURRENT MEDICATION AND DIET
[2020-04-12] MEDS: Atorvastatin Calcium 10 MG TAB PO SCH (21:30)
[2020-04-13] MEDS: Multivitamin w/ Minerals Tab PO SCH (11:30)
--- NOTE | 2020-04-13 19:44 | Internal Medicine Prog Note ---
Internal Medicine Subjective - Subjective Service Date: 04/13/20 Patient seen and examined:: without staff (SHE IS CONFUSED) Patient is:: awake, verbal, in bed, talking, confused Per staff patient has:: no adverse event Internal Medicine Objective - Physical Exam Vitals and I&O: Vital Signs Temp 97.4 F 04/13/20 14:00 Pulse 79 04/13/20 14:00 Resp 19 04/13/20 14:00 BP 124/64 04/13/20 14:00 Pulse Ox 99 04/13/20 14:00 Intake & Output 04/13/20 04/13/20 04/14/20 06:59 18:59 06:59 Intake Total 240 1100 Balance 240 1100 Intake: Oral 240 1100 Other: # Voids 2 # Bowel Movements 1 Active Medications: Current Medications Acetaminophen (Tylenol Extra Strength) 1,000 mg PO Q6H PRN PRN Reason: Pain (Moderate 4-6) Stop: 06/08/20 21:05 Acetaminophen (Tylenol) 650 mg PO Q4H PRN PRN Reason: TEMP ABOVE 99F Stop: 06/09/20 00:53 Acetaminophen (Tylenol) 650 mg PO Q4HR PRN PRN Reason: Mild Pain (Scale 1-3) Stop: 06/09/20 20:53 Al Hydrox/Mg Hydrox/Simethicone (Maalox) 30 ml PO Q4HR PRN PRN Reason: GI DISTRESS Stop: 06/08/20 21:05 Amlodipine Besylate (Norvasc) 5 mg PO DAILY [facility] Stop: 06/10/20 08:59 Last Admin: 04/13/20 09:00 Dose: Not Given Ascorbic Acid (Vitamin C) 500 mg PO DAILY [facility] Stop: 06/10/20 08:59 Last Admin: 04/13/20 11:30 Dose: 500 mg Atorvastatin Calcium (Lipitor) 10 mg PO [facility]; Protocol Stop: 06/09/20 20:59 Last Admin: 04/12/20 21:30 Dose: 10 mg Cholecalciferol (Vitamin D3) 1,000 iu PO DAILY [facility] Stop: 06/10/20 08:59 Last Admin: 04/13/20 11:30 Dose: 1,000 iu Docusate Sodium (Colace) 200 mg PO DAILY [facility] Stop: 06/10/20 08:59 Last Admin: 04/13/20 09:00 Dose: Not Given Lorazepam (Ativan) 0.5 mg PO Q4HR PRN; Protocol PRN Reason: Anxiety Stop: 05/09/20 21:05 Last Admin: 04/10/20 08:34 Dose: 0.5 mg Lorazepam (Ativan) 0.5 mg PO BID [facility]; Protocol Stop: 06/09/20 08:59 Last Admin: 04/13/20 16:41 Dose: 0.5 mg Magnesium Hydroxide (Milk Of Magnesia) 30 ml PO HS PRN PRN Reason: Constipation Stop: 06/09/20 20:53 Memantine (Namenda) 10 mg PO BID [facility] Stop: 06/09/20 08:59 Last Admin: 04/13/20 16:41 Dose: 10 mg Olanzapine (Zyprexa) 5 mg PO Q12HR [facility]; Protocol Stop: 06/09/20 08:59 Last Admin: 04/13/20 11:30 Dose: 5 mg Valproate Sodium (Depakene) 250 mg PO BID [facility]; Protocol Stop: 06/11/20 16:59 Last Admin: 04/13/20 16:41 Dose: 250 mg Zolpidem Tartrate (Ambien) 5 mg PO HS PRN PRN Reason: Insomnia Stop: 06/08/20 21:05 Last Admin: 04/12/20 21:31 Dose: 5 mg General: alert, demented HEENT: NC/AT, PERRLA, EOMI, anicteric sclerae, throat clear Neck: Supple, No JVD, No thyromegaly, +2 carotid pulse wo bruit Lungs: CTAB Cardiovascular: RRR, Normal S1, Normal S2, without murmur Abdomen: soft, non-tender, non-distended Extremities: clear Neurological: unable to follow command - Procedures Procedures: Procedures Procedure Code Date GROUP PSYCHOTHERAPY 72555 02/12/16 GROUP PSYCHOTHERAPY GZHZZZZ 02/12/16 OTHER GROUP THERAPY 94.44 01/18/15 RECREATIONAL THERAPY 93.81 06/04/10 VACCINATION NEC 99.55 01/21/14 Internal Medicine Assmt/Plan - Assessment Assessment: 1.HTN 2.HYPERLIPIDEMIA. 3.CHRONIC CONSTIPATION. 4.PSYCHOSIS - Plan Plan: CONTINUE ON CURRENT MEDICATION AND DIET
--- NOTE | 2020-04-13 19:47 | Progress Notes ---
DATE: 04/13/2020 SUBJECTIVE: Staff was spoken to. The patient is interviewed. Mood is noted to be irritable. Affect is constricted. The patient is very intrusive. Insight and judgment at this time are noted to be still impaired. Impulse control is noted to be limited. Coping skills are noted to be limited. She continues to be very paranoid and testing the limits. ASSESSMENT: The patient is still psychotic and impulsive. PLAN: To continue the patient with supportive therapy and current medications and encourage the patient to verbalize the concerns rather than to act out. JOB# [id number]
[2020-04-13] MEDS: Atorvastatin Calcium 10 MG TAB PO SCH (21:49)
[2020-04-14] MEDS: Multivitamin w/ Minerals Tab PO SCH (08:46)
--- NOTE | 2020-04-14 17:51 | Internal Medicine Prog Note ---
Internal Medicine Subjective - Subjective Service Date: 04/14/20 Patient seen and examined:: without staff (SHE IS DOING BETTER) Patient is:: awake, verbal, in bed, talking, confused Per staff patient has:: no adverse event Internal Medicine Objective - Results Recent Labs: Laboratory Last Values Coronavirus (PCR) NOT DETECTED (NOT DETECTD) 04/11/20 18:05 - Physical Exam Vitals and I&O: Vital Signs Temp 96.9 F 04/14/20 06:11 Pulse 77 04/14/20 08:54 Resp 18 04/14/20 08:00 BP 111/61 04/14/20 08:54 Pulse Ox 100 04/14/20 06:11 Intake & Output 04/13/20 04/14/20 04/14/20 18:59 06:59 18:59 Intake Total 1100 1200 Balance 1100 1200 Intake: Oral 1100 1200 Other: # Voids 3 4 # Bowel Movements 1 0 1 Active Medications: Current Medications Acetaminophen (Tylenol Extra Strength) 1,000 mg PO Q6H PRN PRN Reason: Pain (Moderate 4-6) Stop: 06/08/20 21:05 Acetaminophen (Tylenol) 650 mg PO Q4H PRN PRN Reason: TEMP ABOVE 99F Stop: 06/09/20 00:53 Acetaminophen (Tylenol) 650 mg PO Q4HR PRN PRN Reason: Mild Pain (Scale 1-3) Stop: 06/09/20 20:53 Al Hydrox/Mg Hydrox/Simethicone (Maalox) 30 ml PO Q4HR PRN PRN Reason: GI DISTRESS Stop: 06/08/20 21:05 Amlodipine Besylate (Norvasc) 5 mg PO DAILY [facility] Stop: 06/10/20 08:59 Last Admin: 04/14/20 08:54 Dose: Not Given Ascorbic Acid (Vitamin C) 500 mg PO DAILY [facility] Stop: 06/10/20 08:59 Last Admin: 04/14/20 08:54 Dose: Not Given Atorvastatin Calcium (Lipitor) 10 mg PO HS [facility]; Protocol Stop: 06/09/20 20:59 Last Admin: 04/13/20 21:49 Dose: 10 mg Cholecalciferol (Vitamin D3) 1,000 iu PO DAILY [facility] Stop: 06/10/20 08:59 Last Admin: 04/14/20 08:54 Dose: Not Given Docusate Sodium (Colace) 200 mg PO DAILY [facility] Stop: 06/10/20 08:59 Last Admin: 04/14/20 08:46 Dose: 200 mg Lorazepam (Ativan) 0.5 mg PO Q4HR PRN; Protocol PRN Reason: Anxiety Stop: 05/09/20 21:05 Last Admin: 04/10/20 08:34 Dose: 0.5 mg Lorazepam (Ativan) 0.5 mg PO BID [facility]; Protocol Stop: 06/09/20 08:59 Last Admin: 04/14/20 16:36 Dose: Not Given Magnesium Hydroxide (Milk Of Magnesia) 30 ml PO HS PRN PRN Reason: Constipation Stop: 06/09/20 20:53 Memantine (Namenda) 10 mg PO BID [facility] Stop: 06/09/20 08:59 Last Admin: 04/14/20 16:36 Dose: Not Given Olanzapine (Zyprexa) 5 mg PO Q12HR [facility]; Protocol Stop: 06/09/20 08:59 Last Admin: 04/14/20 08:55 Dose: Not Given Valproate Sodium (Depakene) 250 mg PO BID [facility]; Protocol Stop: 06/11/20 16:59 Last Admin: 04/14/20 16:36 Dose: Not Given Zolpidem Tartrate (Ambien) 5 mg PO HS PRN PRN Reason: Insomnia Stop: 06/08/20 21:05 Last Admin: 04/13/20 21:49 Dose: 5 mg General: alert, demented HEENT: NC/AT, PERRLA, EOMI, anicteric sclerae, throat clear Neck: Supple, No JVD, No thyromegaly, +2 carotid pulse wo bruit Lungs: CTAB Cardiovascular: RRR, Normal S1, Normal S2, without murmur Abdomen: soft, non-tender, non-distended Extremities: clear Neurological: unable to follow command - Procedures Procedures: Procedures Procedure Code Date GROUP PSYCHOTHERAPY 02434 02/12/16 GROUP PSYCHOTHERAPY GZHZZZZ 02/12/16 OTHER GROUP THERAPY 94.44 01/18/15 RECREATIONAL THERAPY 93.81 06/04/10 VACCINATION NEC 99.55 01/21/14 Internal Medicine Assmt/Plan - Assessment Assessment: 1.HTN 2.HYPERLIPIDEMIA. 3.CHRONIC CONSTIPATION. 4.PSYCHOSIS - Plan Plan: CONTINUE ON CURRENT MEDICATION AND DIET
[2020-04-14] MEDS: Atorvastatin Calcium 10 MG TAB PO SCH (20:37)
--- NOTE | 2020-04-14 20:52 | Progress Notes ---
DATE: 04/14/2020 SUBJECTIVE: Staff was spoken to. The patient is interviewed. Mood is noted to be irritable. Affect is constricted. Insight and judgment are noted to be still impaired. Impulse control is noted to be limited. Coping skills are noted to be limited. The patient has been having difficult time to cope with the stress. No side effects to the medications are noted. The patient tends to be very intrusive and argumentative. The patient is not making much sense. ASSESSMENT: The patient is still grossly psychotic. PLAN: To continue the patient with the current medications. I encouraged the patient to verbalize the concerns rather than to act out. JOB# [id number]
[2020-04-15] MEDS: Multivitamin w/ Minerals Tab PO SCH (08:38)
--- NOTE | 2020-04-15 13:05 | Progress Notes ---
DATE: 04/15/2020 SUBJECTIVE: Staff was spoken to. The patient is interviewed. Mood is noted to be irritable. Affect is constricted. The patient is pacing most of the time on the unit. Insight and judgment at this time are noted to be still impaired. Impulse control is noted to be limited. The patient is currently on 5 mg twice a day of olanzapine and has been able to tolerate medication. In view of her impulsivity, the patient has been placed on valproic acid. She is able to tolerate Depakote. No side effects to the medications are noted. Blood work has been reviewed and coronavirus is negative at this time. Patient's sleep and appetite are improving.Aggressive beh is closely monitored. ASSESSMENT: The patient is still psychotic and impulsive. PLAN: To continue the patient with the supportive therapy, I encouraged the patient to verbalize the concerns rather than to act out. JOB# [id number] BRITTANIE
--- NOTE | 2020-04-15 18:40 | Internal Medicine Prog Note ---
Internal Medicine Subjective - Subjective Service Date: 04/15/20 Patient seen and examined:: without staff (SHE IS DOING WELL) Patient is:: awake, verbal, in bed, talking, confused Per staff patient has:: no adverse event Internal Medicine Objective - Results Recent Labs: Laboratory Last Values Coronavirus (PCR) NOT DETECTED (NOT DETECTD) 04/11/20 18:05 - Physical Exam Vitals and I&O: Vital Signs Temp 98.3 F 04/15/20 16:44 Pulse 74 04/15/20 16:44 Resp 20 04/15/20 16:44 BP 110/72 04/15/20 16:44 Pulse Ox 97 04/15/20 16:44 Intake & Output 04/14/20 04/15/20 04/15/20 18:59 06:59 18:59 Intake Total 1200 480 Balance 1200 480 Intake: Oral 1200 480 Other: # Voids 4 3 # Bowel Movements 1 0 Stool Characteristics Soft Soft Formed Formed Brown Brown Active Medications: Current Medications Acetaminophen (Tylenol Extra Strength) 1,000 mg PO Q6H PRN PRN Reason: Pain (Moderate 4-6) Stop: 06/08/20 21:05 Acetaminophen (Tylenol) 650 mg PO Q4H PRN PRN Reason: TEMP ABOVE 99F Stop: 06/09/20 00:53 Acetaminophen (Tylenol) 650 mg PO Q4HR PRN PRN Reason: Mild Pain (Scale 1-3) Stop: 06/09/20 20:53 Al Hydrox/Mg Hydrox/Simethicone (Maalox) 30 ml PO Q4HR PRN PRN Reason: GI DISTRESS Stop: 06/08/20 21:05 Amlodipine Besylate (Norvasc) 5 mg PO DAILY [facility] Stop: 06/10/20 08:59 Last Admin: 04/15/20 08:38 Dose: Not Given Ascorbic Acid (Vitamin C) 500 mg PO DAILY [facility] Stop: 06/10/20 08:59 Last Admin: 04/15/20 08:39 Dose: 500 mg Atorvastatin Calcium (Lipitor) 10 mg PO HS [facility]; Protocol Stop: 06/09/20 20:59 Last Admin: 04/14/20 20:37 Dose: Not Given Cholecalciferol (Vitamin D3) 1,000 iu PO DAILY [facility] Stop: 06/10/20 08:59 Last Admin: 04/15/20 08:39 Dose: 1,000 iu Docusate Sodium (Colace) 200 mg PO DAILY [facility] Stop: 06/10/20 08:59 Last Admin: 04/15/20 08:39 Dose: 200 mg Lorazepam (Ativan) 0.5 mg PO Q4HR PRN; Protocol PRN Reason: Anxiety Stop: 05/09/20 21:05 Last Admin: 04/15/20 12:45 Dose: 0.5 mg Lorazepam (Ativan) 0.5 mg PO BID [facility]; Protocol Stop: 06/09/20 08:59 Last Admin: 04/15/20 16:37 Dose: 0.5 mg Magnesium Hydroxide (Milk Of Magnesia) 30 ml PO HS PRN PRN Reason: Constipation Stop: 06/09/20 20:53 Memantine (Namenda) 10 mg PO BID [facility] Stop: 06/09/20 08:59 Last Admin: 04/15/20 16:37 Dose: 10 mg Olanzapine (Zyprexa) 5 mg PO Q12HR [facility]; Protocol Stop: 06/09/20 08:59 Last Admin: 04/15/20 08:39 Dose: 5 mg Valproate Sodium (Depakene) 250 mg PO BID [facility]; Protocol Stop: 06/11/20 16:59 Last Admin: 04/15/20 16:37 Dose: 250 mg Zolpidem Tartrate (Ambien) 5 mg PO HS PRN PRN Reason: Insomnia Stop: 06/08/20 21:05 Last Admin: 04/13/20 21:49 Dose: 5 mg General: alert, demented HEENT: NC/AT, PERRLA, EOMI, anicteric sclerae, throat clear Neck: Supple, No JVD, No thyromegaly, +2 carotid pulse wo bruit Lungs: CTAB Cardiovascular: RRR, Normal S1, Normal S2, without murmur Abdomen: soft, non-tender, non-distended Extremities: clear Neurological: unable to follow command - Procedures Procedures: Procedures Procedure Code Date GROUP PSYCHOTHERAPY 19447 02/12/16 GROUP PSYCHOTHERAPY GZHZZZZ 02/12/16 OTHER GROUP THERAPY 94.44 01/18/15 RECREATIONAL THERAPY 93.81 06/04/10 VACCINATION NEC 99.55 01/21/14 Internal Medicine Assmt/Plan - Assessment Assessment: 1.HTN 2.HYPERLIPIDEMIA. 3.CHRONIC CONSTIPATION. 4.PSYCHOSIS - Plan Plan: CONTINUE ON CURRENT MEDICATION AND DIET Nutritional Asmnt/Malnutr-PDOC - Dietary Evaluation Malnutrition Findings (Please click <Entered> for more info): Nutritional Asmnt/Malnutrition Start: 04/15/20 12: 18 Text: Status: Complete Freq: Protocol: Document 04/15/20 12:18 GASPER (Rec: 04/15/20 12:20 GASPER [id number]) Nutritional Asmnt/Malnutrition Patient General Information Nutritional Screening Low Risk Diagnosis Acute Psychosis Pertinent Medical Hx/Surgical Hx HTN, Hyperlipidemia, Chronic Constipation, DJD Subjective Information Pt is a 74-year-old female admitted on 04/09 d/t hold for danger to others. Pt is eating an estimated 100% of meals since Per Meal/Nutrition Activity Record. Dietary is currently providing an estimated 2280 kcals and 105 gm Pro to meet 100+% kcal and 100+% Pro needs. Visited pt in dining room, pt was very confused and could not answer any questions I asked her. Anthropometrics HT: 56 WT: 169 LB (76.82 kg) ABW: 140 LB (63.64 kg) BMI: 27.28 (overweight) GI/ Skin Integrity GI: WNL, Soft, Non-tender, Flat BM: 04/14 x1 I/O: 1680/Not Noted Skin: WNL, dryness [place]: 19 Diet Order: Mechanical Soft, LARRY Estimated Energy Needs: ( Geriatric, ABW) 8591-1697 kcals (25-30 kcals/ kg) 60-75g Pro (1.0-1.2 g/kg) 2524-9562 ml (25-30 ml/kg) Current Diet Order/ Nutrition Support Mechanical Soft, LARRY Patient / S.O Can't verbalize diet edu Pertinent Medications Maalox (PRN), Vitamin C, Lipitor, Vitamin D, Colace, MOM (PRN) Pertinent Labs No labs available Nutritional Hx/Data Height 1.68 m Height (Calculated Centimeters) 167.6 Current Weight (lbs) 76.657 kg Weight (Calculated Kilograms) 76.7 Weight (Calculated Grams) 58182.1 [place] Body Weight 130 LB (59.09 kg) % [place] Body Weight 130 Body Mass Index (BMI) 27.2 Weight Status Overweight GI Symptoms Last BM 04/14 x1 Skin Integrity/Comment: Skin: WNL, dryness [place]: 19 Current %PO Good (75-100%) Estimated Nutritional Goals BEE in Kcals: Adj wt of IBW Calories/Kcals/Kg 25-30 Kcals Calculated 6911-2807 Protein: Adj wt of IBW Protein g/k.0-1.2 Protein Calculated 60-75 Fluid: ml 0240-5919 ml (25-30 ml/kg) Nutritional Problem No current Nutrition Prob Problem No nutrition diagnosis at this time. Etiology N/A Signs/Symptoms: N/A Malnutrition Related to Morbid Obesity Malnutrition related to morbid obesity No Intervention/Recommendation Comments Continue Mechanical Soft, LARRY diet as tolerated. Expected Outcomes/Goals Expected Outcomes/Goals 1.PO intake to continue to meet >75% of estimated nutritional needs. 2.Monitor PO intake, wt, nutrition related labs, and skin integrity. 3.F/U as low risk in 7-10 days , 04/22-04/25.
[2020-04-15] MEDS: Atorvastatin Calcium 10 MG TAB PO SCH (20:39)
[2020-04-16] MEDS: Multivitamin w/ Minerals Tab PO SCH (09:46)
--- NOTE | 2020-04-16 15:25 | Progress Notes ---
DATE: 04/14/2020 PSYCHOLOGY PROGRESS NOTE SUBJECTIVE: The patient is seen in her room and is interviewed. Case is discussed with staff. The patient presents as restless. Staff reports the patient continues to pace on the unit. The patient has very poor insight into her illness. The patient is demanding to be discharged. OBJECTIVE: Mood is irritable and angry. Affect is mood congruent and constricted. Thought process shows loose associations and at times flight of ideas. The patient is not making much sense. The patient denied any auditory or visual hallucinations; however, the patient seems to be responding to internal stimuli. The patient denied any suicidal or homicidal ideation, plan or intention. The patient's behavior has been difficult to redirect on the unit and refuses care at times. ASSESSMENT: The patient's psychosis and impulsivity persist. PLAN: We provided reality orientation, differentiation and integration. We provided de-escalation and limit setting. We encouraged the patient to verbalize her concerns versus acting out. We provided a simple stress management and anger management approach for the patient to interact appropriately with staff and encouraged the patient through motivational enhancement to become compliant and stay compliant with all aspects of her care and treatment. We will follow up in 2-3 days to continue the present treatment if the patient remains on the unit and is able to demonstrate the capacity to benefit from psychology services. JOB# [id number] BRITTANIE
[2020-04-16] MEDS: Atorvastatin Calcium 10 MG TAB PO SCH (20:13)
--- NOTE | 2020-04-16 20:54 | Internal Medicine Prog Note ---
Internal Medicine Subjective - Subjective Service Date: 04/16/20 Patient seen and examined:: without staff (SHE IS CONFUSED) Patient is:: awake, verbal, in bed, talking, confused Per staff patient has:: no adverse event Internal Medicine Objective - Results Recent Labs: Laboratory Last Values Coronavirus (PCR) NOT DETECTED (NOT DETECTD) 04/11/20 18:05 - Physical Exam Vitals and I&O: Vital Signs Temp 97 F 04/16/20 14:00 Pulse 83 04/16/20 14:00 Resp 18 04/16/20 14:00 BP 107/63 04/16/20 14:00 Pulse Ox 96 04/16/20 14:00 Intake & Output 04/16/20 04/16/20 04/17/20 06:59 18:59 06:59 Intake Total 240 1200 Balance 240 1200 Intake: Oral 240 1200 Other: # Voids 3 4 # Bowel Movements 0 1 Stool Characteristics Soft Formed Brown Active Medications: Current Medications Acetaminophen (Tylenol Extra Strength) 1,000 mg PO Q6H PRN PRN Reason: Pain (Moderate 4-6) Stop: 06/08/20 21:05 Acetaminophen (Tylenol) 650 mg PO Q4H PRN PRN Reason: TEMP ABOVE 99F Stop: 06/09/20 00:53 Acetaminophen (Tylenol) 650 mg PO Q4HR PRN PRN Reason: Mild Pain (Scale 1-3) Stop: 06/09/20 20:53 Al Hydrox/Mg Hydrox/Simethicone (Maalox) 30 ml PO Q4HR PRN PRN Reason: GI DISTRESS Stop: 06/08/20 21:05 Amlodipine Besylate (Norvasc) 5 mg PO DAILY [facility] Stop: 06/10/20 08:59 Last Admin: 04/16/20 09:45 Dose: 5 mg Ascorbic Acid (Vitamin C) 500 mg PO DAILY [facility] Stop: 06/10/20 08:59 Last Admin: 04/16/20 09:47 Dose: 500 mg Atorvastatin Calcium (Lipitor) 10 mg PO HS [facility]; Protocol Stop: 06/09/20 20:59 Last Admin: 04/16/20 20:13 Dose: 10 mg Cholecalciferol (Vitamin D3) 1,000 iu PO DAILY [facility] Stop: 06/10/20 08:59 Last Admin: 04/16/20 09:47 Dose: 1,000 iu Docusate Sodium (Colace) 200 mg PO DAILY [facility] Stop: 06/10/20 08:59 Last Admin: 04/16/20 09:46 Dose: 200 mg Lorazepam (Ativan) 0.5 mg PO Q4HR PRN; Protocol PRN Reason: Anxiety Stop: 05/09/20 21:05 Last Admin: 04/15/20 12:45 Dose: 0.5 mg Lorazepam (Ativan) 0.5 mg PO BID [facility]; Protocol Stop: 06/09/20 08:59 Last Admin: 04/16/20 18:00 Dose: 0.5 mg Magnesium Hydroxide (Milk Of Magnesia) 30 ml PO HS PRN PRN Reason: Constipation Stop: 06/09/20 20:53 Memantine (Namenda) 10 mg PO BID [facility] Stop: 06/09/20 08:59 Last Admin: 04/16/20 18:00 Dose: 10 mg Olanzapine (Zyprexa) 5 mg PO Q12HR [facility]; Protocol Stop: 06/09/20 08:59 Last Admin: 04/16/20 20:13 Dose: 5 mg Valproate Sodium (Depakene) 250 mg PO BID [facility]; Protocol Stop: 06/11/20 16:59 Last Admin: 04/16/20 18:00 Dose: 250 mg Zolpidem Tartrate (Ambien) 5 mg PO HS PRN PRN Reason: Insomnia Stop: 06/08/20 21:05 Last Admin: 04/16/20 20:14 Dose: 5 mg General: alert, demented HEENT: NC/AT, PERRLA, EOMI, anicteric sclerae, throat clear Neck: Supple, No JVD, No thyromegaly, +2 carotid pulse wo bruit Lungs: CTAB Cardiovascular: RRR, Normal S1, Normal S2, without murmur Abdomen: soft, non-tender, non-distended Extremities: clear Neurological: unable to follow command - Procedures Procedures: Procedures Procedure Code Date GROUP PSYCHOTHERAPY 45878 02/12/16 GROUP PSYCHOTHERAPY GZHZZZZ 02/12/16 OTHER GROUP THERAPY 94.44 01/18/15 RECREATIONAL THERAPY 93.81 06/04/10 VACCINATION NEC 99.55 01/21/14 Internal Medicine Assmt/Plan - Assessment Assessment: 1.HTN 2.HYPERLIPIDEMIA. 3.CHRONIC CONSTIPATION. 4.PSYCHOSIS - Plan Plan: CONTINUE ON CURRENT MEDICATION AND DIET Nutritional Asmnt/Malnutr-PDOC - Dietary Evaluation Malnutrition Findings (Please click <Entered> for more info): Nutritional Asmnt/Malnutrition Start: 04/15/20 12: 18 Text: Status: Complete Freq: Protocol: Document 04/15/20 12:18 GASPER (Rec: 04/15/20 12:20 GASPER [id number]) Nutritional Asmnt/Malnutrition Patient General Information Nutritional Screening Low Risk Diagnosis Acute Psychosis Pertinent Medical Hx/Surgical Hx HTN, Hyperlipidemia, Chronic Constipation, DJD Subjective Information Pt is a 74-year-old female admitted on 04/09 d/t hold for danger to others. Pt is eating an estimated 100% of meals since Per Meal/Nutrition Activity Record. Dietary is currently providing an estimated 2280 kcals and 105 gm Pro to meet 100+% kcal and 100+% Pro needs. Visited pt in dining room, pt was very confused and could not answer any questions I asked her. Anthropometrics HT: 56 WT: 169 LB (76.82 kg) ABW: 140 LB (63.64 kg) BMI: 27.28 (overweight) GI/ Skin Integrity GI: WNL, Soft, Non-tender, Flat BM: 04/14 x1 I/O: 1680/Not Noted Skin: WNL, dryness [place]: 19 Diet Order: Mechanical Soft, LARRY Estimated Energy Needs: ( Geriatric, ABW) 6302-1976 kcals (25-30 kcals/ kg) 60-75g Pro (1.0-1.2 g/kg) 8807-1698 ml (25-30 ml/kg) Current Diet Order/ Nutrition Support Mechanical Soft, LARRY Patient / S.O Can't verbalize diet edu Pertinent Medications Maalox (PRN), Vitamin C, Lipitor, Vitamin D, Colace, MOM (PRN) Pertinent Labs No labs available Nutritional Hx/Data Height 1.68 m Height (Calculated Centimeters) 167.6 Current Weight (lbs) 76.657 kg Weight (Calculated Kilograms) 76.7 Weight (Calculated Grams) 39748.1 [place] Body Weight 130 LB (59.09 kg) % [place] Body Weight 130 Body Mass Index (BMI) 27.2 Weight Status Overweight GI Symptoms Last BM 04/14 x1 Skin Integrity/Comment: Skin: WNL, dryness Arden: 19 Current %PO Good (75-100%) Estimated Nutritional Goals BEE in Kcals: Adj wt of IBW Calories/Kcals/Kg 25-30 Kcals Calculated 0602-7332 Protein: Adj wt of IBW Protein g/k.0-1.2 Protein Calculated 60-75 Fluid: ml 4298-3669 ml (25-30 ml/kg) Nutritional Problem No current Nutrition Prob Problem No nutrition diagnosis at this time. Etiology N/A Signs/Symptoms: N/A Malnutrition Related to Morbid Obesity Malnutrition related to morbid obesity No Intervention/Recommendation Comments Continue Mechanical Soft, LARRY diet as tolerated. Expected Outcomes/Goals Expected Outcomes/Goals 1.PO intake to continue to meet >75% of estimated nutritional needs. 2.Monitor PO intake, wt, nutrition related labs, and skin integrity. 3.F/U as low risk in 7-10 days , 04/22-04/25.
--- NOTE | 2020-04-17 09:22 | Progress Notes ---
DATE: 04/16/2020 SUBJECTIVE: Staff was spoken to. The patient is interviewed. Mood is noted to be irritable. Affect is constricted. Insight and judgment are noted to be still impaired. Impulse control is noted to be improving. No side effects to the medications are noted. The patient has been able to verbalize the concerns rather than to act out. The patient continues to be very paranoid but, however, the impulsivity is improving. The patient needs to be treated ____ at this time. ASSESSMENT: The patient's psychosis is resolving. PLAN: To continue the patient with the supportive therapy and current medications and work with the case management with regards to communicating with the facility to see if they are willing to take the patient back or not. JOB# [id number]
[2020-04-17] MEDS: Multivitamin w/ Minerals Tab PO SCH (09:55)
--- NOTE | 2020-04-17 16:48 | Progress Notes ---
DATE: 04/17/2020 PSYCHIATRIC PROGRESS NOTE SUBJECTIVE: Staff was spoken to. The patient is interviewed. Mood is noted to be less irritable. Affect is appropriate. The patient is not presenting with any threats to harm self or others. Insight and judgment are noted to be improving. No side effects to medications are noted. The patient could be redirected at this time and hence it is decided to work with the rn field case manager to see if we can discharge the patient [facility] for [facility]up on outpatient basis. JOB# [id number]
[2020-04-17] MEDS: Atorvastatin Calcium 10 MG TAB PO SCH (20:04)
--- NOTE | 2020-04-17 20:43 | Internal Medicine Prog Note ---
Internal Medicine Subjective - Subjective Service Date: 04/17/20 Patient seen and examined:: without staff (SHE IS DOING GOOD) Patient is:: awake, verbal, in bed, talking, confused Per staff patient has:: no adverse event Internal Medicine Objective - Results Recent Labs: Laboratory Last Values Coronavirus (PCR) NOT DETECTED (NOT DETECTD) 04/11/20 18:05 - Physical Exam Vitals and I&O: Vital Signs Temp 97.1 F 04/17/20 20:00 Pulse 91 04/17/20 20:00 Resp 19 04/17/20 20:00 BP 128/68 04/17/20 20:00 Pulse Ox 97 04/17/20 20:00 Intake & Output 04/17/20 04/17/20 04/18/20 06:59 18:59 06:59 Intake Total 120 1200 Balance 120 1200 Intake: Oral 120 1200 Other: # Voids 3 4 # Bowel Movements 1 Stool Characteristics Soft Formed Brown Active Medications: Current Medications Acetaminophen (Tylenol Extra Strength) 1,000 mg PO Q6H PRN PRN Reason: Pain (Moderate 4-6) Stop: 06/08/20 21:05 Acetaminophen (Tylenol) 650 mg PO Q4H PRN PRN Reason: TEMP ABOVE 99F Stop: 06/09/20 00:53 Acetaminophen (Tylenol) 650 mg PO Q4HR PRN PRN Reason: Mild Pain (Scale 1-3) Stop: 06/09/20 20:53 Al Hydrox/Mg Hydrox/Simethicone (Maalox) 30 ml PO Q4HR PRN PRN Reason: GI DISTRESS Stop: 06/08/20 21:05 Amlodipine Besylate (Norvasc) 5 mg PO DAILY [facility] Stop: 06/10/20 08:59 Last Admin: 04/17/20 09:55 Dose: 5 mg Ascorbic Acid (Vitamin C) 500 mg PO DAILY [facility] Stop: 06/10/20 08:59 Last Admin: 04/17/20 09:55 Dose: 500 mg Atorvastatin Calcium (Lipitor) 10 mg PO HS [facility]; Protocol Stop: 06/09/20 20:59 Last Admin: 04/17/20 20:04 Dose: 10 mg Cholecalciferol (Vitamin D3) 1,000 iu PO DAILY [facility] Stop: 06/10/20 08:59 Last Admin: 04/17/20 09:55 Dose: 1,000 iu Docusate Sodium (Colace) 200 mg PO DAILY [facility] Stop: 06/10/20 08:59 Last Admin: 04/17/20 09:54 Dose: Not Given Lorazepam (Ativan) 0.5 mg PO Q4HR PRN; Protocol PRN Reason: Anxiety Stop: 05/09/20 21:05 Last Admin: 04/15/20 12:45 Dose: 0.5 mg Lorazepam (Ativan) 0.5 mg PO BID [facility]; Protocol Stop: 06/09/20 08:59 Last Admin: 04/17/20 16:19 Dose: 0.5 mg Magnesium Hydroxide (Milk Of Magnesia) 30 ml PO HS PRN PRN Reason: Constipation Stop: 06/09/20 20:53 Memantine (Namenda) 10 mg PO BID [facility] Stop: 06/09/20 08:59 Last Admin: 04/17/20 16:18 Dose: 10 mg Olanzapine (Zyprexa) 5 mg PO Q12HR [facility]; Protocol Stop: 06/09/20 08:59 Last Admin: 04/17/20 20:04 Dose: 5 mg Valproate Sodium (Depakene) 250 mg PO BID [facility]; Protocol Stop: 06/11/20 16:59 Last Admin: 04/17/20 16:19 Dose: 250 mg Zolpidem Tartrate (Ambien) 5 mg PO HS PRN PRN Reason: Insomnia Stop: 06/08/20 21:05 Last Admin: 04/17/20 20:05 Dose: 5 mg General: alert, demented HEENT: NC/AT, PERRLA, EOMI, anicteric sclerae, throat clear Neck: Supple, No JVD, No thyromegaly, +2 carotid pulse wo bruit Lungs: CTAB Cardiovascular: RRR, Normal S1, Normal S2, without murmur Abdomen: soft, non-tender, non-distended Extremities: clear Neurological: unable to follow command - Procedures Procedures: Procedures Procedure Code Date GROUP PSYCHOTHERAPY 35325 02/12/16 GROUP PSYCHOTHERAPY GZHZZZZ 02/12/16 OTHER GROUP THERAPY 94.44 01/18/15 RECREATIONAL THERAPY 93.81 06/04/10 VACCINATION NEC 99.55 01/21/14 Internal Medicine Assmt/Plan - Assessment Assessment: 1.HTN 2.HYPERLIPIDEMIA. 3.CHRONIC CONSTIPATION. 4.PSYCHOSIS - Plan Plan: CONTINUE ON CURRENT MEDICATION AND DIET Nutritional Asmnt/Malnutr-PDOC - Dietary Evaluation Malnutrition Findings (Please click <Entered> for more info): Nutritional Asmnt/Malnutrition Start: 04/15/20 12: 18 Text: Status: Complete Freq: Protocol: Document 04/15/20 12:18 GASPER (Rec: 04/15/20 12:20 GASPER [id number]) Nutritional Asmnt/Malnutrition Patient General Information Nutritional Screening Low Risk Diagnosis Acute Psychosis Pertinent Medical Hx/Surgical Hx HTN, Hyperlipidemia, Chronic Constipation, DJD Subjective Information Pt is a 74-year-old female admitted on 04/09 d/t hold for danger to others. Pt is eating an estimated 100% of meals since Per Meal/Nutrition Activity Record. Dietary is currently providing an estimated 2280 kcals and 105 gm Pro to meet 100+% kcal and 100+% Pro needs. Visited pt in dining room, pt was very confused and could not answer any questions I asked her. Anthropometrics HT: 56 WT: 169 LB (76.82 kg) ABW: 140 LB (63.64 kg) BMI: 27.28 (overweight) GI/ Skin Integrity GI: WNL, Soft, Non-tender, Flat BM: 04/14 x1 I/O: 1680/Not Noted Skin: WNL, dryness [place]: 19 Diet Order: Mechanical Soft, LARRY Estimated Energy Needs: ( Geriatric, ABW) 3692-1049 kcals (25-30 kcals/ kg) 60-75g Pro (1.0-1.2 g/kg) 5765-7378 ml (25-30 ml/kg) Current Diet Order/ Nutrition Support Mechanical Soft, LARRY Patient / S.O Can't verbalize diet edu Pertinent Medications Maalox (PRN), Vitamin C, Lipitor, Vitamin D, Colace, MOM (PRN) Pertinent Labs No labs available Nutritional Hx/Data Height 1.68 m Height (Calculated Centimeters) 167.6 Current Weight (lbs) 76.657 kg Weight (Calculated Kilograms) 76.7 Weight (Calculated Grams) 72565.1 [place] Body Weight 130 LB (59.09 kg) % [place] Body Weight 130 Body Mass Index (BMI) 27.2 Weight Status Overweight GI Symptoms Last BM 04/14 x1 Skin Integrity/Comment: Skin: WNL, dryness [place]: 19 Current %PO Good (75-100%) Estimated Nutritional Goals BEE in Kcals: Adj wt of IBW Calories/Kcals/Kg 25-30 Kcals Calculated 5600-1758 Protein: Adj wt of IBW Protein g/k.0-1.2 Protein Calculated 60-75 Fluid: ml 2978-3608 ml (25-30 ml/kg) Nutritional Problem No current Nutrition Prob Problem No nutrition diagnosis at this time. Etiology N/A Signs/Symptoms: N/A Malnutrition Related to Morbid Obesity Malnutrition related to morbid obesity No Intervention/Recommendation Comments Continue Mechanical Soft, LARRY diet as tolerated. Expected Outcomes/Goals Expected Outcomes/Goals 1.PO intake to continue to meet >75% of estimated nutritional needs. 2.Monitor PO intake, wt, nutrition related labs, and skin integrity. 3.F/U as low risk in 7-10 days , 04/22-04/25.
--- NOTE | 2020-04-17 23:30 | Progress Notes ---
DATE: 04/16/2020 PSYCHOLOGY PROGRESS NOTE SUBJECTIVE: The patient is seen in her room and is interviewed. Case is discussed with staff. The patient presents as less argumentative on this visit and seems to be calmer. The staff reports that the patient has continued to demand to be discharged. The patient did not answer questions about experiencing suicidal ideation, plan or intention. OBJECTIVE: Mood is less irritable. Affect is mood congruent, but constricted. Thought process shows to be concrete, but confused. The patient denied any thoughts of self-harm. The patient's behavior has been somewhat more redirectable according to the staff. ASSESSMENT: The patient's psychosis seems to be possibly resolving; however, this needs further evaluation. PLAN: We provided reality orientation, differentiation and integration. We provided coping strategies for phase of life issues as well as for chronic severe mental illness. We encouraged the patient to accept the bottle caser's recommendation as well as the attending psychiatrist's recommendation to [facility] We encouraged the patient to verbalize her concerns with staff and to interact more appropriately with the staff at her facility. We provided positive reinforcement for the patient to stay compliant with all aspects of her care and treatment. We provided coping mechanisms for chronic severe mental illness as well as for phase of life issues. We will follow up in 2-3 days to continue the present treatment if the patient remains admitted on the unit and is willing to participate and is able to demonstrate the capacity to benefit from this type of treatment. JOB# [id number] BRITTANIE
[2020-04-18] MEDS: Multivitamin w/ Minerals Tab PO SCH (08:31)
--- NOTE | 2020-04-18 08:56 | Progress Notes ---
DATE: 04/18/2020 PSYCHIATRIC PROGRESS NOTE SUBJECTIVE: Staff was spoken to. The patient is interviewed. Mood is noted to be irritable. Affect is constricted. The patient is pacing most of the time on the unit and the patient is very argumentative this morning. The patient has no insight into her illness. Continues to be very paranoid and is demanding that she should be sent to a bank at this time. The patient has no clue why she wants to go to the bank. ASSESSMENT: The patient is still grossly psychotic and impulsive. PLAN: To continue the patient with the supportive therapy. I encouraged the patient to verbalize the concerns. The patient is currently on the olanzapine, she has been getting at 5 mg twice a day and the patient is going to be continued with this medication along with the Depakote and followup. JOB# [id number]
--- NOTE | 2020-04-18 18:57 | Internal Medicine Prog Note ---
Internal Medicine Subjective - Subjective Service Date: 04/18/20 Patient seen and examined:: without staff (SHE IS CONFUSED) Patient is:: awake, verbal, in bed, talking, confused Per staff patient has:: no adverse event Internal Medicine Objective - Results Recent Labs: Laboratory Last Values Coronavirus (PCR) NOT DETECTED (NOT DETECTD) 04/11/20 18:05 - Physical Exam Vitals and I&O: Vital Signs Temp 97.1 F 04/18/20 14:00 Pulse 87 04/18/20 14:00 Resp 18 04/18/20 14:00 BP 139/72 04/18/20 14:00 Pulse Ox 98 04/18/20 14:00 Intake & Output 04/17/20 04/18/20 04/18/20 18:59 06:59 18:59 Intake Total 1200 1000 Balance 1200 1000 Intake: Oral 1200 1000 Other: # Voids 4 4 # Bowel Movements 1 1 Stool Characteristics Soft Soft Formed Formed Brown Brown Active Medications: Current Medications Acetaminophen (Tylenol Extra Strength) 1,000 mg PO Q6H PRN PRN Reason: Pain (Moderate 4-6) Stop: 06/08/20 21:05 Acetaminophen (Tylenol) 650 mg PO Q4H PRN PRN Reason: TEMP ABOVE 99F Stop: 06/09/20 00:53 Acetaminophen (Tylenol) 650 mg PO Q4HR PRN PRN Reason: Mild Pain (Scale 1-3) Stop: 06/09/20 20:53 Al Hydrox/Mg Hydrox/Simethicone (Maalox) 30 ml PO Q4HR PRN PRN Reason: GI DISTRESS Stop: 06/08/20 21:05 Amlodipine Besylate (Norvasc) 5 mg PO DAILY [facility] Stop: 06/10/20 08:59 Last Admin: 04/18/20 08:30 Dose: Not Given Ascorbic Acid (Vitamin C) 500 mg PO DAILY [facility] Stop: 06/10/20 08:59 Last Admin: 04/18/20 08:31 Dose: 500 mg Atorvastatin Calcium (Lipitor) 10 mg PO HS [facility]; Protocol Stop: 06/09/20 20:59 Last Admin: 04/17/20 20:04 Dose: 10 mg Cholecalciferol (Vitamin D3) 1,000 iu PO DAILY [facility] Stop: 06/10/20 08:59 Last Admin: 04/18/20 08:31 Dose: 1,000 iu Docusate Sodium (Colace) 200 mg PO DAILY [facility] Stop: 06/10/20 08:59 Last Admin: 04/18/20 08:29 Dose: 200 mg Lorazepam (Ativan) 0.5 mg PO Q4HR PRN; Protocol PRN Reason: Anxiety Stop: 05/09/20 21:05 Last Admin: 04/15/20 12:45 Dose: 0.5 mg Lorazepam (Ativan) 0.5 mg PO BID [facility]; Protocol Stop: 06/09/20 08:59 Last Admin: 04/18/20 16:10 Dose: 0.5 mg Magnesium Hydroxide (Milk Of Magnesia) 30 ml PO HS PRN PRN Reason: Constipation Stop: 06/09/20 20:53 Memantine (Namenda) 10 mg PO BID [facility] Stop: 06/09/20 08:59 Last Admin: 04/18/20 16:10 Dose: 10 mg Olanzapine (Zyprexa) 5 mg PO Q12HR [facility]; Protocol Stop: 06/09/20 08:59 Last Admin: 04/18/20 08:31 Dose: 5 mg Valproate Sodium (Depakene) 250 mg PO BID [facility]; Protocol Stop: 06/11/20 16:59 Last Admin: 04/18/20 16:09 Dose: 250 mg Zolpidem Tartrate (Ambien) 5 mg PO HS PRN PRN Reason: Insomnia Stop: 06/08/20 21:05 Last Admin: 04/17/20 20:05 Dose: 5 mg General: alert, demented HEENT: NC/AT, PERRLA, EOMI, anicteric sclerae, throat clear Neck: Supple, No JVD, No thyromegaly, +2 carotid pulse wo bruit Lungs: CTAB Cardiovascular: RRR, Normal S1, Normal S2, without murmur Abdomen: soft, non-tender, non-distended Extremities: clear Neurological: unable to follow command - Procedures Procedures: Procedures Procedure Code Date GROUP PSYCHOTHERAPY 81592 02/12/16 GROUP PSYCHOTHERAPY GZHZZZZ 02/12/16 OTHER GROUP THERAPY 94.44 01/18/15 RECREATIONAL THERAPY 93.81 06/04/10 VACCINATION NEC 99.55 01/21/14 Internal Medicine Assmt/Plan - Assessment Assessment: 1.HTN 2.HYPERLIPIDEMIA. 3.CHRONIC CONSTIPATION. 4.PSYCHOSIS - Plan Plan: CONTINUE ON CURRENT MEDICATION AND DIET Nutritional Asmnt/Malnutr-PDOC - Dietary Evaluation Malnutrition Findings (Please click <Entered> for more info): Nutritional Asmnt/Malnutrition Start: 04/15/20 12: 18 Text: Status: Complete Freq: Protocol: Document 04/15/20 12:18 GASPER (Rec: 04/15/20 12:20 GASPER [id number]) Nutritional Asmnt/Malnutrition Patient General Information Nutritional Screening Low Risk Diagnosis Acute Psychosis Pertinent Medical Hx/Surgical Hx HTN, Hyperlipidemia, Chronic Constipation, DJD Subjective Information Pt is a 74-year-old female admitted on 04/09 d/t hold for danger to others. Pt is eating an estimated 100% of meals since Per Meal/Nutrition Activity Record. Dietary is currently providing an estimated 2280 kcals and 105 gm Pro to meet 100+% kcal and 100+% Pro needs. Visited pt in dining room, pt was very confused and could not answer any questions I asked her. Anthropometrics HT: 56 WT: 169 LB (76.82 kg) ABW: 140 LB (63.64 kg) BMI: 27.28 (overweight) GI/ Skin Integrity GI: WNL, Soft, Non-tender, Flat BM: 04/14 x1 I/O: 1680/Not Noted Skin: WNL, dryness [place]: 19 Diet Order: Mechanical Soft, LARRY Estimated Energy Needs: ( Geriatric, ABW) 4722-7610 kcals (25-30 kcals/ kg) 60-75g Pro (1.0-1.2 g/kg) 7728-7598 ml (25-30 ml/kg) Current Diet Order/ Nutrition Support Mechanical Soft, LARRY Patient / S.O Can't verbalize diet edu Pertinent Medications Maalox (PRN), Vitamin C, Lipitor, Vitamin D, Colace, MOM (PRN) Pertinent Labs No labs available Nutritional Hx/Data Height 1.68 m Height (Calculated Centimeters) 167.6 Current Weight (lbs) 76.657 kg Weight (Calculated Kilograms) 76.7 Weight (Calculated Grams) 16536.1 [place] Body Weight 130 LB (59.09 kg) % [place] Body Weight 130 Body Mass Index (BMI) 27.2 Weight Status Overweight GI Symptoms Last BM 04/14 x1 Skin Integrity/Comment: Skin: WNL, dryness [place]: 19 Current %PO Good (75-100%) Estimated Nutritional Goals BEE in Kcals: Adj wt of IBW Calories/Kcals/Kg 25-30 Kcals Calculated 7323-4974 Protein: Adj wt of IBW Protein g/k.0-1.2 Protein Calculated 60-75 Fluid: ml 9083-1914 ml (25-30 ml/kg) Nutritional Problem No current Nutrition Prob Problem No nutrition diagnosis at this time. Etiology N/A Signs/Symptoms: N/A Malnutrition Related to Morbid Obesity Malnutrition related to morbid obesity No Intervention/Recommendation Comments Continue Mechanical Soft, LARRY diet as tolerated. Expected Outcomes/Goals Expected Outcomes/Goals 1.PO intake to continue to meet >75% of estimated nutritional needs. 2.Monitor PO intake, wt, nutrition related labs, and skin integrity. 3.F/U as low risk in 7-10 days , 04/22-04/25.
[2020-04-18] MEDS: Atorvastatin Calcium 10 MG TAB PO SCH (20:46)
[2020-04-19] MEDS: Multivitamin w/ Minerals Tab PO SCH (09:03)
--- NOTE | 2020-04-19 14:24 | General Progress Note ---
Subjective - Review of Systems Service Date: 04/19/20 Subjective: resting comfortably no distress Objective - Results Recent Labs: Laboratory Last Values Coronavirus (PCR) NOT DETECTED (NOT DETECTD) 04/11/20 18:05 - Physical Exam Vitals and I&O: Vital Signs Temp 97.6 F 04/19/20 14:19 Pulse 89 04/19/20 14:19 Resp 20 04/19/20 14:19 BP 127/68 04/19/20 14:19 Pulse Ox 100 04/19/20 14:19 Intake & Output 04/18/20 04/19/20 04/19/20 18:59 06:59 18:59 Intake Total 1000 240 Balance 1000 240 Intake: Oral 1000 240 Other: # Voids 4 2 # Bowel Movements 1 Stool Characteristics Soft Formed Brown Active Medications: Current Medications Acetaminophen (Tylenol Extra Strength) 1,000 mg PO Q6H PRN PRN Reason: Pain (Moderate 4-6) Stop: 06/08/20 21:05 Acetaminophen (Tylenol) 650 mg PO Q4H PRN PRN Reason: TEMP ABOVE 99F Stop: 06/09/20 00:53 Acetaminophen (Tylenol) 650 mg PO Q4HR PRN PRN Reason: Mild Pain (Scale 1-3) Stop: 06/09/20 20:53 Al Hydrox/Mg Hydrox/Simethicone (Maalox) 30 ml PO Q4HR PRN PRN Reason: GI DISTRESS Stop: 06/08/20 21:05 Amlodipine Besylate (Norvasc) 5 mg PO DAILY [facility] Stop: 06/10/20 08:59 Last Admin: 04/19/20 09:03 Dose: 5 mg Ascorbic Acid (Vitamin C) 500 mg PO DAILY [facility] Stop: 06/10/20 08:59 Last Admin: 04/19/20 09:03 Dose: 500 mg Atorvastatin Calcium (Lipitor) 10 mg PO HS [facility]; Protocol Stop: 06/09/20 20:59 Last Admin: 04/18/20 20:46 Dose: 10 mg Cholecalciferol (Vitamin D3) 1,000 iu PO DAILY [facility] Stop: 06/10/20 08:59 Last Admin: 04/19/20 09:03 Dose: 1,000 iu Docusate Sodium (Colace) 200 mg PO DAILY [facility] Stop: 06/10/20 08:59 Last Admin: 04/19/20 09:03 Dose: 200 mg Lorazepam (Ativan) 0.5 mg PO Q4HR PRN; Protocol PRN Reason: Anxiety Stop: 05/09/20 21:05 Last Admin: 04/15/20 12:45 Dose: 0.5 mg Lorazepam (Ativan) 0.5 mg PO BID [facility]; Protocol Stop: 06/09/20 08:59 Last Admin: 04/19/20 09:03 Dose: 0.5 mg Magnesium Hydroxide (Milk Of Magnesia) 30 ml PO HS PRN PRN Reason: Constipation Stop: 06/09/20 20:53 Memantine (Namenda) 10 mg PO BID [facility] Stop: 06/09/20 08:59 Last Admin: 04/19/20 09:03 Dose: 10 mg Olanzapine (Zyprexa) 5 mg PO Q12HR [facility]; Protocol Stop: 06/09/20 08:59 Last Admin: 04/19/20 09:04 Dose: 5 mg Valproate Sodium (Depakene) 250 mg PO BID [facility]; Protocol Stop: 06/11/20 16:59 Last Admin: 04/19/20 09:02 Dose: 250 mg Zolpidem Tartrate (Ambien) 5 mg PO HS PRN PRN Reason: Insomnia Stop: 06/08/20 21:05 Last Admin: 04/18/20 20:46 Dose: 5 mg General: Alert, No acute distress HEENT: Atraumatic, PERRLA Neck: Supple, JVD, Thyromegaly Cardiovascular: Regular rate, Normal S1, Normal S2 Lungs: Clear to auscultation Abdomen: Bowel sounds - Procedures Procedures: Procedures Procedure Code Date GROUP PSYCHOTHERAPY 52827 02/12/16 GROUP PSYCHOTHERAPY GZHZZZZ 02/12/16 OTHER GROUP THERAPY 94.44 01/18/15 RECREATIONAL THERAPY 93.81 06/04/10 VACCINATION NEC 99.55 01/21/14 Assessment/Plan - Assessment Assessment: 1.HTN 2.HYPERLIPIDEMIA. 3.CHRONIC CONSTIPATION. 4.PSYCHOSIS - Plan Plan: continue current treatment Nutritional Asmnt/Malnutr-PDOC - Dietary Evaluation Malnutrition Findings (Please click <Entered> for more info): Nutritional Asmnt/Malnutrition Start: 04/15/20 12: 18 Text: Status: Complete Freq: Protocol: Document 04/15/20 12:18 GASPER (Rec: 04/15/20 12:20 GASPER [email or web address] [id number]) Nutritional Asmnt/Malnutrition Patient General Information Nutritional Screening Low Risk Diagnosis Acute Psychosis Pertinent Medical Hx/Surgical Hx HTN, Hyperlipidemia, Chronic Constipation, DJD Subjective Information Pt is a 74-year-old female admitted on 04/09 d/t hold for danger to others. Pt is eating an estimated 100% of meals since Per Meal/Nutrition Activity Record. Dietary is currently providing an estimated 2280 kcals and 105 gm Pro to meet 100+% kcal and 100+% Pro needs. Visited pt in dining room, pt was very confused and could not answer any questions I asked her. Anthropometrics HT: 56 WT: 169 LB (76.82 kg) ABW: 140 LB (63.64 kg) BMI: 27.28 (overweight) GI/ Skin Integrity GI: WNL, Soft, Non-tender, Flat BM: 04/14 x1 I/O: 1680/Not Noted Skin: WNL, dryness [place]: 19 Diet Order: Mechanical Soft, LARRY Estimated Energy Needs: ( Geriatric, ABW) 0510-0545 kcals (25-30 kcals/ kg) 60-75g Pro (1.0-1.2 g/kg) 3726-5464 ml (25-30 ml/kg) Current Diet Order/ Nutrition Support Mechanical Soft, LARRY Patient / S.O Can't verbalize diet edu Pertinent Medications Maalox (PRN), Vitamin C, Lipitor, Vitamin D, Colace, MOM (PRN) Pertinent Labs No labs available Nutritional Hx/Data Height 1.68 m Height (Calculated Centimeters) 167.6 Current Weight (lbs) 76.657 kg Weight (Calculated Kilograms) 76.7 Weight (Calculated Grams) 92101.1 [place] Body Weight 130 LB (59.09 kg) % [place] Body Weight 130 Body Mass Index (BMI) 27.2 Weight Status Overweight GI Symptoms Last BM 04/14 x1 Skin Integrity/Comment: Skin: WNL, dryness [place]: 19 Current %PO Good (75-100%) Estimated Nutritional Goals BEE in Kcals: Adj wt of IBW Calories/Kcals/Kg 25-30 Kcals Calculated 0557-0288 Protein: Adj wt of IBW Protein g/k.0-1.2 Protein Calculated 60-75 Fluid: ml 8415-9760 ml (25-30 ml/kg) Nutritional Problem No current Nutrition Prob Problem No nutrition diagnosis at this time. Etiology N/A Signs/Symptoms: N/A Malnutrition Related to Morbid Obesity Malnutrition related to morbid obesity No Intervention/Recommendation Comments Continue Mechanical Soft, LARRY diet as tolerated. Expected Outcomes/Goals Expected Outcomes/Goals 1.PO intake to continue to meet >75% of estimated nutritional needs. 2.Monitor PO intake, wt, nutrition related labs, and skin integrity. 3.F/U as low risk in 7-10 days , 04/22-04/25.
[2020-04-19] MEDS: Atorvastatin Calcium 10 MG TAB PO SCH (20:56)
--- NOTE | 2020-04-20 02:00 | Progress Notes ---
DATE: 04/19/2020 SUBJECTIVE: Staff was spoken to. The patient is interviewed. Mood is noted to be irritable. Affect is constricted. The patient's insight and judgment are noted to be still impaired. Impulse control is noted to be limited. The patient needs to be redirected constantly. No side effects to the medications are noted. ASSESSMENT: The patient is still psychotic. PLAN: To continue the patient with supportive therapy. I encouraged the patient to verbalize the concerns rather than to act out. JOB# [id number]
[2020-04-20] MEDS: Multivitamin w/ Minerals Tab PO SCH (08:17)
[2020-04-20 10:44] LABS: CHOLESTEROL 182 mg/dL (<200); LDL CHOLESTEROL 87 mg/dL (0-129); TRIGLYCERIDES 37 mg/dL (30-150)
--- NOTE | 2020-04-20 11:11 | Progress Notes ---
DATE: 04/19/2020 PSYCHOLOGY PROGRESS NOTE SUBJECTIVE: The patient is seen and is interviewed. Case is discussed with staff. The patient is somewhat withdrawn this visit and is in her room. Staff reports the patient's impulse control continues to be problematic. The patient apparently needs constant redirection. The patient was going off on a tangent and not making much sense, but did respond to some of the clinical questions. OBJECTIVE: Mood is irritable. Affect is constricted. Thought process shows flight of ideas with paranoid ideation. The patient denied any suicidal ideation, plan or intention. The patient's impulse control is limited. The patient's behavior requires constant redirection by the staff. ASSESSMENT: The patient's psychosis persists. PLAN: We provided reality orientation, differentiation and integration. We provided remotivation for the patient to become compliant and stay compliant with all aspects of her care and treatment and to respond to staff direction. We encouraged the patient to verbalize her concerns versus acting out verbally and behaviorally. We provided coping strategies for phase of life issues. We will follow up in 2-3 days to continue the present treatment if the patient is still admitted on the unit and is willing to participate in treatment and demonstrate the capacity to benefit from psychology services. JOB# [id number] BRITTANIE
--- NOTE | 2020-04-20 17:08 | General Progress Note ---
Subjective - Review of Systems Service Date: 04/20/20 Subjective: resting comfortably no distress Objective - Results Recent Labs: Laboratory Last Values Triglycerides 37 mg/dL (30-150) 04/20/20 09:15 Cholesterol 182 mg/dL (<200) 04/20/20 09:15 LDL Cholesterol 87 mg/dL (0-129) 04/20/20 09:15 HDL Cholesterol 82 mg/dL (>55) 04/20/20 09:15 Coronavirus (PCR) NOT DETECTED (NOT DETECTD) 04/11/20 18:05 - Physical Exam Vitals and I&O: Vital Signs Temp 97.7 F 04/20/20 14:00 Pulse 84 04/20/20 14:00 Resp 20 04/20/20 14:00 BP 130/80 04/20/20 14:00 Pulse Ox 94 04/20/20 14:00 Intake & Output 04/19/20 04/20/20 04/20/20 18:59 06:59 18:59 Intake Total 900 720 Balance 900 720 Intake: Oral 900 720 Other: # Voids 3 1 # Bowel Movements 1 Active Medications: Current Medications Acetaminophen (Tylenol Extra Strength) 1,000 mg PO Q6H PRN PRN Reason: Pain (Moderate 4-6) Stop: 06/08/20 21:05 Acetaminophen (Tylenol) 650 mg PO Q4H PRN PRN Reason: TEMP ABOVE 99F Stop: 06/09/20 00:53 Acetaminophen (Tylenol) 650 mg PO Q4HR PRN PRN Reason: Mild Pain (Scale 1-3) Stop: 06/09/20 20:53 Al Hydrox/Mg Hydrox/Simethicone (Maalox) 30 ml PO Q4HR PRN PRN Reason: GI DISTRESS Stop: 06/08/20 21:05 Amlodipine Besylate (Norvasc) 5 mg PO DAILY [facility] Stop: 06/10/20 08:59 Last Admin: 04/20/20 08:18 Dose: 5 mg Ascorbic Acid (Vitamin C) 500 mg PO DAILY [facility] Stop: 06/10/20 08:59 Last Admin: 04/20/20 08:18 Dose: 500 mg Atorvastatin Calcium (Lipitor) 10 mg PO HS [facility]; Protocol Stop: 06/09/20 20:59 Last Admin: 04/19/20 20:56 Dose: 10 mg Cholecalciferol (Vitamin D3) 1,000 iu PO DAILY [facility] Stop: 06/10/20 08:59 Last Admin: 04/20/20 08:17 Dose: 1,000 iu Docusate Sodium (Colace) 200 mg PO DAILY [facility] Stop: 06/10/20 08:59 Last Admin: 04/20/20 08:18 Dose: Not Given Lorazepam (Ativan) 0.5 mg PO Q4HR PRN; Protocol PRN Reason: Anxiety Stop: 05/09/20 21:05 Last Admin: 04/15/20 12:45 Dose: 0.5 mg Lorazepam (Ativan) 0.5 mg PO BID [facility]; Protocol Stop: 06/09/20 08:59 Last Admin: 04/20/20 16:23 Dose: 0.5 mg Magnesium Hydroxide (Milk Of Magnesia) 30 ml PO HS PRN PRN Reason: Constipation Stop: 06/09/20 20:53 Memantine (Namenda) 10 mg PO BID [facility] Stop: 06/09/20 08:59 Last Admin: 04/20/20 16:23 Dose: 10 mg Olanzapine (Zyprexa) 5 mg PO Q12HR [facility]; Protocol Stop: 06/09/20 08:59 Last Admin: 04/20/20 08:17 Dose: 5 mg Valproate Sodium (Depakene) 250 mg PO BID [facility]; Protocol Stop: 06/11/20 16:59 Last Admin: 04/20/20 16:23 Dose: 250 mg Zolpidem Tartrate (Ambien) 5 mg PO HS PRN PRN Reason: Insomnia Stop: 06/08/20 21:05 Last Admin: 04/19/20 20:57 Dose: 5 mg General: Alert, No acute distress HEENT: Atraumatic, PERRLA Neck: Supple, JVD, Thyromegaly Cardiovascular: Regular rate, Normal S1, Normal S2 Lungs: Clear to auscultation Abdomen: Bowel sounds - Procedures Procedures: Procedures Procedure Code Date GROUP PSYCHOTHERAPY 90718 02/12/16 GROUP PSYCHOTHERAPY GZHZZZZ 02/12/16 OTHER GROUP THERAPY 94.44 01/18/15 RECREATIONAL THERAPY 93.81 06/04/10 VACCINATION NEC 99.55 01/21/14 Assessment/Plan - Assessment Assessment: 1.HTN 2.HYPERLIPIDEMIA. 3.CHRONIC CONSTIPATION. 4.PSYCHOSIS - Plan Plan: continue current treatment Nutritional Asmnt/Malnutr-PDOC - Dietary Evaluation Malnutrition Findings (Please click <Entered> for more info): Nutritional Asmnt/Malnutrition Start: 04/15/20 12: 18 Text: Status: Complete Freq: Protocol: Document 04/15/20 12:18 GASPER (Rec: 04/15/20 12:20 GASPER [email or web address] [id number]) Nutritional Asmnt/Malnutrition Patient General Information Nutritional Screening Low Risk Diagnosis Acute Psychosis Pertinent Medical Hx/Surgical Hx HTN, Hyperlipidemia, Chronic Constipation, DJD Subjective Information Pt is a 74-year-old female admitted on 04/09 d/t hold for danger to others. Pt is eating an estimated 100% of meals since Per Meal/Nutrition Activity Record. Dietary is currently providing an estimated 2280 kcals and 105 gm Pro to meet 100+% kcal and 100+% Pro needs. Visited pt in dining room, pt was very confused and could not answer any questions I asked her. Anthropometrics HT: 56 WT: 169 LB (76.82 kg) ABW: 140 LB (63.64 kg) BMI: 27.28 (overweight) GI/ Skin Integrity GI: WNL, Soft, Non-tender, Flat BM: 04/14 x1 I/O: 1680/Not Noted Skin: WNL, dryness [place]: 19 Diet Order: Mechanical Soft, LARRY Estimated Energy Needs: ( Geriatric, ABW) 0004-1855 kcals (25-30 kcals/ kg) 60-75g Pro (1.0-1.2 g/kg) 6201-5664 ml (25-30 ml/kg) Current Diet Order/ Nutrition Support Mechanical Soft, LARRY Patient / S.O Can't verbalize diet edu Pertinent Medications Maalox (PRN), Vitamin C, Lipitor, Vitamin D, Colace, MOM (PRN) Pertinent Labs No labs available Nutritional Hx/Data Height 1.68 m Height (Calculated Centimeters) 167.6 Current Weight (lbs) 76.657 kg Weight (Calculated Kilograms) 76.7 Weight (Calculated Grams) 33234.1 [place] Body Weight 130 LB (59.09 kg) % [place] Body Weight 130 Body Mass Index (BMI) 27.2 Weight Status Overweight GI Symptoms Last BM 04/14 x1 Skin Integrity/Comment: Skin: WNL, dryness [place]: 19 Current %PO Good (75-100%) Estimated Nutritional Goals BEE in Kcals: Adj wt of IBW Calories/Kcals/Kg 25-30 Kcals Calculated 8750-2150 Protein: Adj wt of IBW Protein g/k.0-1.2 Protein Calculated 60-75 Fluid: ml 0242-1970 ml (25-30 ml/kg) Nutritional Problem No current Nutrition Prob Problem No nutrition diagnosis at this time. Etiology N/A Signs/Symptoms: N/A Malnutrition Related to Morbid Obesity Malnutrition related to morbid obesity No Intervention/Recommendation Comments Continue Mechanical Soft, LARRY diet as tolerated. Expected Outcomes/Goals Expected Outcomes/Goals 1.PO intake to continue to meet >75% of estimated nutritional needs. 2.Monitor PO intake, wt, nutrition related labs, and skin integrity. 3.F/U as low risk in 7-10 days , 04/22-04/25.
[2020-04-20] MEDS: Atorvastatin Calcium 10 MG TAB PO SCH (21:14)
--- NOTE | 2020-04-21 04:43 | Progress Notes ---
DATE: 04/20/2020 SUBJECTIVE: Staff was spoken to. The patient is interviewed. Mood is noted to be less irritable. Affect is constricted. The patient is pacing on the unit. Insight and judgment at this time are noted to be improving. Impulse control seems to be little bit better today. The patient has been able to verbalize the concerns rather than to act out. The patient is on 5 mg twice a day of the olanzapine along with the valproic acid. The patient has been able to tolerate. No side effects to medications are noted. ASSESSMENT: The patient's psychosis is resolving. PLAN: To continue the patient with the current medications and possibly discharge the patient tomorrow for followup on an outpatient basis. JOB# [id number]
[2020-04-21] MEDS: Multivitamin w/ Minerals Tab PO SCH (08:41)
[2020-04-21 23:07] LABS: A1C 6.8 % (4.8-5.6)
--- NOTE | 2020-04-22 13:33 | Progress Notes ---
DATE: 04/21/2020 PSYCHOLOGY PROGRESS NOTE SUBJECTIVE: The patient is seen in her room and is interviewed. Case is discussed with staff. The patient presents as dismissive and minimally responding to the clinical questions. Staff reports the patient continues to pace on the unit at times. The patient is able to verbally interact with staff more appropriately. OBJECTIVE: Mood is less irritable. Affect is constricted. Thought process shows to be confused. The patient is not verbalizing any suicidal ideation, plan or intention or any paranoid ideation this visit. Staff reports the patient's impulse control is improving somewhat. The patient has been compliant with her medications with no side effects noted. ASSESSMENT: The patient's psychosis seems to be resolving. We provided remotivation and positive reinforcement for the patient to stay compliant with all aspects of her care and treatment. We provided coping strategies for phase of life issues as well as for chronic severe mental illness. We encouraged the patient to continue to follow through with staff direction at her placement and to continue her treatment with both Psychiatry and Psychology on an outpatient basis at her placement. No followup is indicated as the patient is most likely discharging today according to the staff. Thank you, Dr. Haynes for this consult and the opportunity to participate with you in this patient's care. JOB# [id number] BRITTANIE
== END 2020-04-21 14:10 | DRG 885 ==
LOC: GERO 20:15
PROVIDERS: ADMIT Psychiatry & Neurology Psychiatry; ATTEND Psychiatry & Neurology Psychiatry
DX: F20.0 Paranoid schizophrenia (principal); I10 Essential (primary) hypertension; E78.5 Hyperlipidemia, unspecified; K59.09 Other constipation; Z88.6 Allergy status to analgesic agent; Z88.0 Allergy status to penicillin; Z20.828 Contact with and (suspected) exposure to other viral communicable diseases
CPT/HCPCS: 36415-UA; 80061-TC; 83036-90; 85018-TC; A4216; G0410; J1630; J2060; J7051; U0003-CS